=== PATIENT | female | born 1955 | race Caucasian/White ===

== ENCOUNTER 2017-11-22 10:47 | Inpatient (IN) ==
--- NOTE | 2017-11-22 11:02 | Emergency Department Note ---
Disposition Clinical Impression: Ankle dislocation Qualifiers: Encounter type: initial encounter Laterality: right Qualified Code(s): S93.04XA - Dislocation of right ankle joint, initial encounter Diastolic CHF Qualifiers: Heart failure chronicity: chronic Qualified Code(s): I50.32 - Chronic diastolic (congestive) heart failure COPD (chronic obstructive pulmonary disease) Qualifiers: COPD type: unspecified COPD Qualified Code(s): J44.9 - Chronic obstructive pulmonary disease, unspecified Disposition: Admitted As Inpatient Condition: Undetermined Referrals: NONE,PCP [Non-Partnered Physician] - Forms: ED Satisfaction Letter Time of Disposition: 12:18 Extremity Problem HPI - General Chief complaint: ED Extremity Problem,Nontraumatic Stated complaint: admission for surgery Time Seen by Provider: 11/22/17 10:53 Source: patient Mode of arrival: wheelchair Limitations: no limitations Nursing Notes Reviewed: Yes Vital Signs Reviewed: Yes - History of Present Illness HPI Narrative: 62-year-old female who was sent here from podiatry office for chronic dislocated right ankle. The patient has a history of COPD, CHF, and the digital marketing lead sent the patient over here for admission to the hospital. He is requesting basic laboratory studies and admission to the hospital. In addition the patient was requested to have a CT of her right ankle. We will obtain labs and admit the patient to the hospital at this time. The patient is noted to have no complaints of new shortness of breath new chest pain or any other new complaints. The patient does have a history of COPD and wears 3 L nasal cannula [id number]. She is resting comfortably without any new leg swelling or any other complaints at this time. Pain Scale: 10 - Related Data Home Medications Medication Instructions Recorded Confirmed Acarbose [Precose] 50 mg PO TID 06/20/17 11/22/17 Albuterol Neb [Proventil Neb] 1 vial IH TID 06/20/17 11/22/17 Albuterol Sulfate [Ventolin Hfa] 2 puff IH Q6H PRN 06/20/17 11/22/17 Aspirin [Lo-Dose Aspirin EC] 81 mg PO DAILY 06/20/17 11/22/17 Atorvastatin [Lipitor] 40 mg PO HS 06/20/17 11/22/17 BuPROPion XL (24 HR) [Wellbutrin 300 mg PO QAM 06/20/17 11/22/17 Xl] Duloxetine HCl [Cymbalta] 60 mg PO QAM 06/20/17 11/22/17 Ergocalciferol (VITAMIN D2) 50,000 unit PO QWEEK 06/20/17 11/22/17 [Vitamin D2] Fluticasone Propionate Nasal 1 spr NS DAILY 06/20/17 11/22/17 [Flonase] Gabapentin [Neurontin] 600 mg PO TID 06/20/17 11/22/17 Lisinopril [Zestril] 10 mg PO DAILY 06/20/17 11/22/17 Magnesium Oxide [Magnesium] 400 mg PO DAILY 06/20/17 11/22/17 Omeprazole [PriLOSEC] 20 mg PO DAILY 06/20/17 11/22/17 Vit #76/Iron,Carb/FA [Pnv 1 tab PO DAILY 06/20/17 11/22/17 29-1 Tablet] Tiotropium [Spiriva] 18 mcg IH DAILY 06/20/17 11/22/17 Trazodone HCl 100 mg PO HS 06/20/17 11/22/17 hydrOXYzine pamoate [HydrOXYzine 25 mg PO TID PRN 06/20/17 11/22/17 Pamoate] metFORMIN [Glucophage] 500 mg PO BID 06/20/17 11/22/17 Acetaminophen [Extra Strength 1,000 mg PO Q6H PRN 11/22/17 11/22/17 Non-Aspirin] Albuterol Sulfate [Ventolin Hfa] 2 puff IH Q6H PRN 11/22/17 11/22/17 Furosemide [Lasix] 60 mg PO QAM 11/22/17 11/22/17 Insulin DETEMIR [Levemir] 26 unit SQ 11/22/17 11/22/17 Insulin DETEMIR [Levemir] 28 unit SQ QAM 11/22/17 11/22/17 Insulin Regular, Human [Novolin R] 0 - 12 unit SQ TID PRN 11/22/17 11/22/17 Potassium Chloride [K-Tab ER] 40 meq PO QAM 11/22/17 11/22/17 Previous Rx's Medication Instructions Recorded Cyanocobalamin (B-12) [Vitamin B12] 1,000 mcg PO DAILY #30 tablet 06/22/17 Allergies Allergy/AdvReac Type Severity Reaction Status Date / Time No Known Drug Allergies Allergy none Verified 06/21/17 19:26 All systems ED: reviewed and negative except as stated. Constitutional: Denies: fever, chills, weakness ENT ED: Denies: congestion Cardiovascular: Denies: chest pain Respiratory: Denies: cough, dyspnea Gastrointestinal: Denies: abdominal pain Musculoskeletal: Denies: back pain Integumentary: Denies: rash Neurological: Denies: headache Past Medical History - Past Medical History Attestation: Yes The following information was validated with the patient. Source: patient, old records reviewed Medical history: Reports: CHF, COPD, diabetes, GERD, hypertension Surgical history: Reports: cholecystectomy, hip replacement Psychiatric history: Reports: anxiety, depression - Social History Smoking Status: Former smoker Smokeless Tobacco Status: No Alcohol use: Reports: occasionally Drug use: Reports: none Physical Exam - General Limitations: no limitations General appearance: alert, in no apparent distress - Head Head exam: atraumatic, normocephalic, normal inspection - Eye Eye exam: Present: normal appearance, PERRL, EOMI - ENT ENT exam: normal exam, normal oropharynx, mucous membranes moist - Neck Neck exam: Present: normal inspection, full ROM, trachea midline - Chest Chest inspection: Present: normal inspection, symmetric chest wall rise - Respiratory Respiratory exam: Present: normal lung sounds bilaterally - Cardiovascular Cardiovascular exam: Present: regular rate, normal rhythm, normal heart sounds - Abdominal Exam Abdominal exam: Present: soft, Non-Tender. Absent: tenderness, distention, guarding, rebound, rigidity - Extremities Exam Extremities exam: Present: other (Patient's bilateral upper and left lower extremities are without any abnormalities other than some chronic venous stasis in the left lower surety. Right lower extremity is noted to be in a surgical boot. No complaints at this time.) - Neurological Exam Neurological exam: Present: alert, oriented X3 - Skin Skin exam: Present: warm, dry, intact, normal color Course Vital Signs Temperature 97.5 F L 11/22/17 10:49 Pulse Rate 79 11/22/17 10:49 Respiratory Rate 22 11/22/17 10:49 Blood Pressure 115/60 11/22/17 10:49 O2 Sat by Pulse Oximetry 97 11/22/17 10:49 Temperature 97.5 F L 11/22/17 11:03 Pulse Rate 79 11/22/17 11:03 Respiratory Rate 22 11/22/17 11:03 Blood Pressure 115/60 11/22/17 11:03 O2 Sat by Pulse Oximetry 97 11/22/17 11:03 Oxygen Delivery Oxygen Delivery Nasal Cannula Extremity Problem, Nontraumati - MDM Narrative Medical decision making narrative: Patient's workup in the emergency department demonstrates no acute process with the exception of hyperkalemia. The patient will be admitted to the hospital this time to be seen by podiatry for the ankle surgery. Accepted by Dr. Muhammad - Lab Data Lab results reviewed: Yes I reviewed the patient's lab results. Result diagrams: 11/22/17 10:53 11/22/17 10:53 Lab Results 11/22/17 11/22/17 Range/Units 10:53 10:53 WBC 5.1 (4.3-11.1) K/mcL RBC 2.91 L (3.82-4.97) M/mcL Hgb 10.0 L (11.5-15.4) g/dL Hct 31.6 L (35.3-44.9) % MCV 108.6 H (83.0-100.0) fL MCH 34.4 H (28.0-33.3) pg MCHC 31.6 (31.6-35.5) g/dL RDW 12.9 (11.5-14.5) % Plt Count 198 (140-400) K/mcL MPV 10.1 (9.4-12.4) fL Immature Gran % 0.4 (0-4) % Seg Neutrophils % 67.8 % Lymphocytes % 21.1 % Monocytes % 8.0 % Eosinophils % 2.3 % Basophils % 0.4 % Neutrophils # 3.5 (1.6-8.9) K/mcL Lymphocytes # 1.1 (0.6-4.6) K/mcL Monocytes # 0.4 (0.0-1.3) K/mcL Eosinophils # 0.1 (0.0-0.6) K/mcL Basophils # 0.0 (0.0-0.2) K/mcL Sodium 141 (136-145) mEq/L Potassium 5.5 H (3.5-5.1) mEq/L Chloride 103 (98-107) mEq/L Carbon Dioxide 29 (23-29) mEq/L BUN 21 (8-23) mg/dL Creatinine 1.01 (0.60-1.20) mg/dL Est GFR ( Amer) > 60 (> 60) Est GFR (Non-Af Amer) 56 L (> 60) BUN/Creatinine Ratio 21 (6-26) Glucose 126 H (70-105) mg/dL Calculated Osmolality 297 (280-300) Calcium 10.1 (8.6-10.3) mg/dL Troponin I < 0.03 (< 0.04) ng/mL - Radiology Data Radiology results reviewed: Yes I reviewed the patient's radiology results. - EKG Data EKG attestation: Yes I reviewed and interpreted this EKG. EKG results narrative: Heart rate 85 beats for minute. Normal sinus rhythm. No ST elevation or ST depression noted. No acute changes noted.
--- NOTE | 2017-11-22 11:16 | Emergency Department Note ---
Disposition Clinical Impression: Ankle dislocation Qualifiers: Encounter type: initial encounter Laterality: right Qualified Code(s): S93.04XA - Dislocation of right ankle joint, initial encounter Disposition: Admitted As Inpatient Referrals: NONE,PCP [Primary Care Provider] - Forms: ED Satisfaction Letter General Adult HPI - General Chief complaint: ED Extremity Problem,Nontraumatic Stated complaint: admission for surgery Time Seen by Provider: 11/22/17 10:53 Source: patient Mode of arrival: wheelchair Limitations: no limitations - History of Present Illness Pain Scale: 10 - Related Data Home Medications Medication Instructions Recorded Confirmed Acarbose [Precose] 50 mg PO TID 06/20/17 06/20/17 Albuterol Neb [Proventil Neb] 1 vial IH TID 06/20/17 06/20/17 Albuterol Sulfate [Ventolin Hfa] 2 puff IH Q6H PRN 06/20/17 06/20/17 Aspirin [Lo-Dose Aspirin EC] 81 mg PO DAILY 06/20/17 06/20/17 Atenolol [Tenormin] 50 mg PO DAILY 06/20/17 06/20/17 Atorvastatin [Lipitor] 40 mg PO HS 06/20/17 06/20/17 Benzonatate [Tessalon] 100 mg PO TID PRN 06/20/17 06/20/17 BuPROPion XL (24 HR) [Wellbutrin 300 mg PO QAM 06/20/17 06/20/17 Xl] Duloxetine HCl [Cymbalta] 60 mg PO QAM 06/20/17 06/20/17 Ergocalciferol (VITAMIN D2) 50,000 unit PO QWEEK 06/20/17 06/20/17 [Vitamin D2] Fluticasone Propionate Nasal 1 spr NS DAILY 06/20/17 06/20/17 [Flonase] Fluticasone/Vilanterol [Breo 1 puff IH DAILY 06/20/17 06/20/17 Ellipta 100-25 Mcg INH] Gabapentin [Neurontin] 600 mg PO TID 06/20/17 06/20/17 Insulin DETEMIR [Levemir] 28 unit SQ BID 06/20/17 06/20/17 Lisinopril [Zestril] 10 mg PO DAILY 06/20/17 06/20/17 Magnesium Oxide [Magnesium] 400 mg PO DAILY 06/20/17 06/20/17 Omeprazole [PriLOSEC] 20 mg PO DAILY 06/20/17 06/20/17 Vit #76/Iron,Carb/FA [Pnv 1 tab PO DAILY 06/20/17 06/20/17 29-1 Tablet] Tiotropium [Spiriva] 18 mcg IH DAILY 06/20/17 06/20/17 Trazodone HCl 100 mg PO HS 06/20/17 06/20/17 hydrOXYzine pamoate [HydrOXYzine 25 mg PO TID PRN 06/20/17 06/20/17 Pamoate] metFORMIN [Glucophage] 500 mg PO BID 06/20/17 06/20/17 Previous Rx's Medication Instructions Recorded Cyanocobalamin (B-12) [Vitamin B12] 1,000 mcg PO DAILY #30 tablet 06/22/17 Allergies Allergy/AdvReac Type Severity Reaction Status Date / Time No Known Drug Allergies Allergy none Verified 06/21/17 19:26 Constitutional: Denies: fever, chills, weakness ENT ED: Denies: congestion Cardiovascular: Denies: chest pain Respiratory: Denies: cough, dyspnea Gastrointestinal: Denies: abdominal pain Musculoskeletal: Denies: back pain Integumentary: Denies: rash Neurological: Denies: headache Past Medical History - Past Medical History Medical history: Reports: CHF, COPD, diabetes, GERD, hypertension Surgical history: Reports: cholecystectomy, hip replacement Psychiatric history: Reports: anxiety, depression - Social History Smoking Status: Former smoker Smokeless Tobacco Status: No Alcohol use: Reports: occasionally Drug use: Reports: none Physical Exam - General Limitations: no limitations General appearance: alert, in no apparent distress Course - Reevaluation(s) Reevaluation #1: Attestation note I did independently examine and verified the physical examination findings evaluation workup and disposition of this patient. We had independent face-to- face examination and discussion. The patient was seen with the emergency medicine resident Dr. Emile Pedro I examined this patient and my medical decision-making was reviewed with the Resident Physician/[employer] DRIVER/PA. I agree with the documented findings, disposition and treatment plan as described except to the extent set forth below. Briefly: 8-year-old female sent by her tester operator helper Dr. Finnegan for workup and admission. Patient has a chronically dislocated right ankle of which she is going to operative repair he wanted screening labs and a CT which are being ordered patient's pain is under control she is getting a meal tray. Admission disposition pending Time: 11:14 Vital Signs Temperature 97.5 F L 11/22/17 10:49 Pulse Rate 79 11/22/17 10:49 Respiratory Rate 22 11/22/17 10:49 Blood Pressure 115/60 11/22/17 10:49 O2 Sat by Pulse Oximetry 97 11/22/17 10:49 Temperature 97.5 F L 11/22/17 11:03 Pulse Rate 79 11/22/17 11:03 Respiratory Rate 22 11/22/17 11:03 Blood Pressure 115/60 11/22/17 11:03 O2 Sat by Pulse Oximetry 97 11/22/17 11:03 Oxygen Delivery Oxygen Delivery Nasal Cannula
[2017-11-22 11:25] LABS: Basophils % 0.4 %; Eosinophils # 0.1 K/mcL (0.0-0.6); Eosinophils % 2.3 %; Hematocrit 31.6 % (35.3-44.9); Immature Granulocytes % 0.4 % (0-4); Lymphocytes # 1.1 K/mcL (0.6-4.6); Lymphocytes % 21.1 %; Mean Corpuscular HGB Conc 31.6 g/dL (31.6-35.5); Mean Corpuscular Hemoglobin 34.4 pg (28.0-33.3); Mean Corpuscular Volume 108.6 fL (83.0-100.0); Mean Platelet Volume 10.1 fL (9.4-12.4); Monocytes # 0.4 K/mcL (0.0-1.3); Neutrophils # 3.5 K/mcL (1.6-8.9); Platelet Count 198 K/mcL (140-400); Red Blood Count 2.91 M/mcL (3.82-4.97); Red Cell Distribution Width 12.9 % (11.5-14.5); Segmented Neutrophils % 67.8 %
[2017-11-22 11:48] LABS: Troponin I < 0.03 ng/mL (< 0.04)
[2017-11-22 12:08] LABS: BUN/Creatinine Ratio 21 (6-26); Blood Urea Nitrogen 21 mg/dL (8-23); Calcium 10.1 mg/dL (8.6-10.3); Carbon Dioxide 29 mEq/L (23-29); Chloride 103 mEq/L (98-107); Glucose 126 mg/dL (70-105); Osmolality,Calculated 297 (280-300); Potassium 5.5 mEq/L (3.5-5.1); Sodium 141 mEq/L (136-145); eGFR For African Americans > 60 (> 60); eGFR For Non-African Americans 56 (> 60)
[2017-11-22 12:25] LABS: Estimated Average Glucose 114 mg/dl; Hemoglobin A1C 5.6 %
[2017-11-22] MEDS ORDERED: Acetaminophen 325 MG TABLET PO PRN (13:33)
[2017-11-22] MEDS ORDERED: Naloxone 0.4 MG/ML INJ IVP PRN (13:33)
[2017-11-22] MEDS ORDERED: *HR* HYDROcodone/Acet 5/325 mg TABLET PO PRN (13:33)
[2017-11-22] MEDS ORDERED: hydrOXYzine pamoate 25 MG CAPSULE PO PRN (13:41)
[2017-11-22] MEDS ORDERED: Ipratropium/Albuterol Neb 3 ML IH PRN (13:48)
[2017-11-22] MEDS ORDERED: D5% in Water 1,000 ML IVC PRN (13:53)
[2017-11-22] MEDS ORDERED: Dextrose Gel 15 GM/37.5 ML TUBE PO PRN ×2 (13:53)
[2017-11-22] MEDS ORDERED: *HR* Dextrose 50 % in Water (Syg) 50 ML SYRINGE IVP PRN (13:53)
[2017-11-22] MEDS ORDERED: GuaiFENesin/Dextromethorphan TABLET PO PRN (13:59)
[2017-11-22] MEDS ORDERED: Menthol 9.1 MG LOZENGE PO PRN (14:00)
--- NOTE | 2017-11-22 14:03 | Internal Med History&Physical ---
<MauroarEmile terry - Last Filed: 11/22/17 15:07> Date of Encounter: 11/22/17 Time of Encounter: 13:00 Internal Medicine - H&P: HPI Chief complaint: Pre-Op Clearance Admitted From: Emergency Dept Plans for Post Hospital Care: Home History of present illness: Ms. Walsh is a 62 year old female w/PMH of CHF, COPD, diabetes controlled by oral medications and insulin, GERD, HTN, and HLD presents from the ED for Pre- Op Clearance for fx/dislocation of the right ankle. Pt. reports she fell in late September at home when she tripped over her O2 tubing. She states she was not able to get to see provider because squad cancelled her call. Reports she has been at [facility] since and has been unable to ambulate. Reports she uses home O2 @6-7L daily. Pt. denies SOB d/t COPD/CHF currently and is at her O2 baseline. Reports dry cough and urinary urgency w/inability to urinate. Hx of UTIs. Pt. denies recent illness, fever, chills, nausea, vomiting, changes in vision, headache, chest pain, unusual bleeding, abdominal pain, diarrhea, constipation, dizziness, lightheadedness, numbness, tingling, pre-syncope, or syncope. Past Med Surg Social Fam HX - Past Medical History Source: patient, old records reviewed Medical history: CHF, COPD, diabetes, GERD, hyperlipidemia, hypertension Psychiatric history: anxiety, depression - Past Surgical History Surgical History: cholecystectomy, hip replacement Additional surgical history: 2 right and 1 left hip replcaement - Social History Smoking Status: Former smoker Packs per day: 1.5-2 PPD, Reports quitting 03/06/17 Smokeless Tobacco Status: No Alcohol use: occasionally Drug use: none Current living situation: ECF Activity Level: Uses cane/walker (Prior to ankle fx), Wheelchair bound Recent Out of Country Travel Within the Last 8 Weeks: No Exposure or Possible Exposure to Illness During Travel: No - Family History Father Race: Family Member Ethnicity: Non- Living Status: Age at : 59 Cause of : Lung cancer Hx Family Cancer: Yes (Lung) Mother Race: Family Member Ethnicity: Non- Living Status: Still Living Hx Family Genitourinary Disorders: Yes (Kidney removed) Sister Race: Family Member Ethnicity: Non- Living Status: Still Living Hx Family Medical Disorders: No Grandmother Race: Family Member Ethnicity: Non- Living Status: Cause of : DM Complications Hx Family Endocrine Disorder: Yes (DM) Internal Medicine - H&P: Meds Acarbose [Precose] 50 mg PO TID 06/20/17 [History] Albuterol Neb [Proventil Neb] 1 vial IH TID 06/20/17 [History] Albuterol Sulfate [Ventolin Hfa] 2 puff IH Q6H PRN 06/20/17 [History] Aspirin [Lo-Dose Aspirin EC] 81 mg PO DAILY 06/20/17 [History] Atorvastatin [Lipitor] 40 mg PO HS 06/20/17 [History] BuPROPion XL (24 HR) [Wellbutrin Xl] 300 mg PO QAM 06/20/17 [History] Duloxetine HCl [Cymbalta] 60 mg PO QAM 06/20/17 [History] Ergocalciferol (VITAMIN D2) [Vitamin D2] 50,000 unit PO QWEEK 06/20/17 [History] Fluticasone Propionate Nasal [Flonase] 1 spr NS DAILY 06/20/17 [History] Gabapentin [Neurontin] 600 mg PO TID 06/20/17 [History] Lisinopril [Zestril] 10 mg PO DAILY 06/20/17 [History] Magnesium Oxide [Magnesium] 400 mg PO DAILY 06/20/17 [History] Omeprazole [PriLOSEC] 20 mg PO DAILY 06/20/17 [History] Vit #76/Iron,Carb/FA [Pnv 29-1 Tablet] 1 tab PO DAILY 06/20/17 [History ] Tiotropium [Spiriva] 18 mcg IH DAILY 06/20/17 [History] Trazodone HCl 100 mg PO HS 06/20/17 [History] hydrOXYzine pamoate [HydrOXYzine Pamoate] 25 mg PO TID PRN 06/20/17 [History] metFORMIN [Glucophage] 500 mg PO BID 06/20/17 [History] Cyanocobalamin (B-12) [Vitamin B12] 1,000 mcg PO DAILY #30 tablet 06/22/17 [Rx] Acetaminophen [Extra Strength Non-Aspirin] 1,000 mg PO Q6H PRN 11/22/17 [History ] Albuterol Sulfate [Ventolin Hfa] 2 puff IH Q6H PRN 11/22/17 [History] Furosemide [Lasix] 60 mg PO QAM 11/22/17 [History] Insulin DETEMIR [Levemir] 26 unit SQ HS 11/22/17 [History] Insulin DETEMIR [Levemir] 28 unit SQ QAM 11/22/17 [History] Insulin Regular, Human [Novolin R] 0 - 12 unit SQ TID PRN 11/22/17 [History] Potassium Chloride [K-Tab ER] 40 meq PO QAM 11/22/17 [History] 3 Allergy/AdvReac Type Severity Reaction Status Date / Time No Known Drug Allergies Allergy none Verified 06/21/17 19:26 All Systems PM: A 10-system review of systems was performed and is negative for pertinent findings except as documented above in the HPI. - Constitutional Constitutional: as per HPI, falls, no chills, no fever(s), no night sweats - EENT Eyes: no change in vision, no discharge, no pain, no photophobia Ears: no ear discharge, no ear pain, no tinnitus Nose, mouth and throat: no dysphagia, no nasal discharge, no neck pain, no sore throat - Breasts Breasts: as per HPI - Cardiovascular Cardiovascular ROS IM: as per HPI, dyspnea (Chronic d/t COPD), dyspnea on exertion (Chronic d/t COPD), no chest pain, no diaphoresis, no lightheadedness, no palpitations, no syncope - Respiratory Respiratory: as per HPI, cough, dyspnea, dyspnea on exertion, no wheezing, no excessive phlegm production - Gastrointestinal Gastrointestinal: no abdominal pain, no diarrhea, no hematemesis, no hematochezia, no melena, no nausea, no vomiting - Genitourinary Genitourinary: no change in urinary stream, no dysuria, no flank pain, no hematuria Menstruation: as per HPI - Musculoskeletal Musculoskeletal ROS IM: no numbness, no tingling - Integumentary Integumentary IM: no rash, no unusual bruising - Neurological Neurological ROS: as per HPI, weakness, no confusion, no convulsions, no focal weakness, no numbness, no tingling, no tremor(s) - Psychiatric Psychiatric: as per HPI, anxiety, depression - Endocrine Endocrine IM: as per HPI - Hematologic/Lymphatic Hematologic/Lymphatic: no easy bruising - Allergic/Immunologic Allergic/Immunologic: as per HPI - Constitutional Vitals: Temp Pulse Resp BP Pulse Ox 97.5 F L 88 18 122/59 100 11/22/17 11:03 11/22/17 13:25 11/22/17 13:25 11/22/17 13:25 11/22/17 13:25 General appearance: Present: A&O X 0, cooperative, A&O X 3, morbidly obese, pleasant, no acute distress, answers questions appropriately - Head Head exam: Present: atraumatic, normocephalic - Eye Eye exam: Present: PERRL, conjuntiva pink, sclera anicteric Pupils: Present: PERRL - ENT ENT exam: Present: normal exam - Neck Neck exam general surgery: Present: normal inspection, supple, trachea midline. Absent: lymphadenopathy - Respiratory Respiratory exam: Present: CTAB. Absent: accessory muscle use, rales, rhonchi, wheezes - Cardiovascular Cardiovascular exam: Present: RRR, +S1, +S2. Absent: diastolic murmur, gallop, rubs, systolic murmur - GI/Abdominal GI/Abdominal exam: Present: normal bowel sounds, soft, no peritoneal signs. Absent: distended, tenderness - Rectal Rectal exam: Present: deferred - Additional comments: exam deferred. - Extremities Exam Extremities exam: Present: warm, radial pulses palpable and symmetrical. Absent : calf tenderness, cyanotic, pedal edema - Back Exam Back exam: Present: normal inspection - Neurological Exam Neurological exam: Present: CN II-XII intact, oriented X3, no focal deficits. Absent: pronater drift, facial droop, speech deficit - Psychiatric Psychiatric exam: Present: normal affect, normal mood - Skin Skin exam: Present: dry, intact Internal Med - H&P Results - Labs CBC & Chem 7: 11/22/17 10:53 11/22/17 10:53 - EKG Data EKG shows normal: sinus rhythm Rate: normal - EKG Data Prior EKG available for review: no - Diagnostic Studies Other Images Additional comments: Impressions Ankle CT 11/22/17 11:05 IMPRESSION: Subacute trimalleolar fracture/dislocation of the right ankle with areas of callus formation but no bony bridging or significant healing. There is severe posterior dislocation of the talus with respect to the tibial plafond with displaced fractures of the medial malleolus, lateral malleolus and posterior malleolus as described above. Large associated joint effusion. D/ / 11/22/2017 12:37:29 Blade Jacobs MD / Tessie Torres Interpreting Provider: Blade Jacobs MD Chest x-ray Additional comments: Impressions Chest X-Ray 11/22/17 11:41 IMPRESSION: No acute process. D/ / Tylor Whalen MD / Tylor Whalen MD Interpreting Provider: Tylor Whalen MD - Assessment and plan (1) Pre-operative clearance Current Visit: Yes Status: Acute Assessment and plan: Pre-Op Clearance for a.m. surgery on right ankle for fx/dislocation suffered in late September. Pt. has hx of cardiac risk factors, including HTN, HLD, CHF, DM, and morbid obesity. Pt. was also recent tobacco user smoking 1.5-2 PPD and reports quitting 03/06/17. EKG today shows SR and normal ECG. Echocardiogram ordered. Cardiology consult ordered and discussed w/Randy Payne who will see pt. post-Echo for Cardiology sign-off. Heparin SQ ordered today and will be stopped at midnight. NPO @ midnight for surgery prep. Pt. is low risk for further morbidity based on current risk factors (stable CHF/COPD) and Echocardiogram in 2014 which showed LVEF 65%, moderate left ventricular diastolic dysfunction, normal right ventricular structure and function, mild to moderately dilated left atrium, no significant valvular dysfunction, and mild pulmonary hypertension. Pt. discussed w/Dr. Armijo who agrees w/plan of care. Observation. (2) Generalized weakness Current Visit: Yes Status: Acute Assessment and plan: Acute and generalized weakness since falling in late September and suffering fx/ dislocation of right ankle. Pt. states she was able to use cane/walker prior to fx but now must use wheelchair. Falls/safety precautions, up with assist, bed rest w/bedside commode w/assist only. PT/OT consults for post-surgery recommendations for rehabilitation needs post-discharge. (3) Hyperkalemia Current Visit: Yes Status: Acute Assessment and plan: Acute hyperkalemia w/potassium of 5.5 on admission. Pt. to receive 1L 0.45 NaCl @75 mL/HR. Monitor potassium at 04:00. (4) Anemia Current Visit: Yes Status: Chronic Assessment and plan: Acute on chronic anemia w/Hgb of 10.0 and Hct of 31.6 on admission which is higher than pts. recent baseline in 2018. Denies unusual bleeding. Monitor H/H in f/u labs. Qualifiers: Anemia type: unspecified type Qualified Code(s): D64.9 - Anemia, unspecified (5) HTN (hypertension) Current Visit: Yes Status: Chronic Assessment and plan: Hx of chronic HTN. Monitor pt. and VS. Continue pts. Lisinopril. Qualifiers: Hypertension type: essential hypertension Qualified Code(s): I10 - Essential (primary) hypertension (6) HLD (hyperlipidemia) Current Visit: Yes Status: Chronic Assessment and plan: Hx of chronic HLD. Lipid panel in a.m. labs. Continue pts. Lipitor. Qualifiers: Hyperlipidemia type: pure hypercholesterolemia Qualified Code(s): E78.00 - Pure hypercholesterolemia, unspecified; E78.0 - Pure hypercholesterolemia (7) GERD (gastroesophageal reflux disease) Current Visit: Yes Status: Chronic Assessment and plan: Hx of chronic GERD. IVP Zofran 4 mg Q6HR PRN for N/V. Continue pts. PO Prilosec. Qualifiers: Esophagitis presence: esophagitis presence not specified Qualified Code(s) : K21.9 - Gastro-esophageal reflux disease without esophagitis (8) COPD (chronic obstructive pulmonary disease) Current Visit: Yes Status: Chronic Assessment and plan: Hx of chronic COPD. Stable. Supplemental O2 w/titration and SpO2 monitoring. DuoNebs Q6HR PRN. Continue pts. inhalers. Qualifiers: COPD type: unspecified COPD Qualified Code(s): J44.9 - Chronic obstructive pulmonary disease, unspecified (9) Diastolic CHF Current Visit: Yes Status: Chronic Assessment and plan: Hx of chronic diastolic CHF. Stable. Will use IV fluids judiciously. Echocardiogram. Continuous cardiac telemetry. Qualifiers: Heart failure chronicity: chronic Qualified Code(s): I50.32 - Chronic diastolic (congestive) heart failure (10) Diabetes mellitus Current Visit: Yes Status: Chronic Assessment and plan: Hx of chronic diabetes controlled by oral medications and insulin. Continue pts. AM and HS insulin. Hold oral medications and administer low-dose correction insulin sliding scale w/hypoglycemic protocol. BG checks ACHS now, then Q6HR after midnight for surgery preparation. Qualifiers: Diabetes mellitus type: type 2 Diabetes mellitus [employer] insulin use: with [facility] use Diabetes mellitus complication status: with neurologic complications Diabetes mellitus complication detail: with polyneuropathy Qualified Code(s): E11.42 - Type 2 diabetes mellitus with diabetic polyneuropathy; Z79.4 - shelter (current) use of insulin; Z79.4 - [employer] ( current) use of insulin; Z79.4 - shelter (current) use of insulin; Z79.4 - shelter (current) use of insulin (11) DVT prophylaxis Current Visit: Yes Status: Acute Assessment and plan: Heparin 5,000 units SQ Q8 for DVT prophylaxis. Stop heparin after midnight in preparation for surgery. Monitor pt. for signs of bleeding. - Time Spent With Patient Total time spent is greater than 50% in coordination of care (as documented) at patient's floor/unit and/or counseling patient: Greater than 35 minutes <Margarito Muhammad - Last Filed: 11/22/17 18:00> Date of Encounter: 11/22/17 Internal Medicine - H&P: HPI History of present illness: Ms. Walsh is a 62 year old female All Systems PM: A 10-system review of systems was performed and is negative for pertinent findings except as documented above in the HPI. - Constitutional Vitals: Temp Pulse Resp BP Pulse Ox 97.7 F 88 16 136/60 95 11/22/17 15:36 11/22/17 15:36 11/22/17 16:14 11/22/17 15:36 11/22/17 16:14 Internal Med - H&P Results - Labs CBC & Chem 7: 11/22/17 10:53 11/22/17 10:53 - Attending Attestation I have personally performed a face to face evaluation on this patient. I have reviewed and agree with the care plan provided by VEE Lebron. History and Exam by me shows: Ms. Walsh is a 62 year old female w/PMH of CHF, COPD, diabetes controlled by oral medications and insulin, GERD, HTN, and HLD presents from the ED for Pre- Op Clearance for fx/dislocation of the right ankle. Pt was followed by Director Of Knowledge Management for this recent Rt ankle fx, who scheduled her for surgery in AM. He asked us to admit the pt into our service and clear her for surgery. Pt denied any CP /SOB Gen: A, A, O x 3 Chest: CTA Heart: S1S2+ RRR Ext: Rt ankle boot + a/p 1. Acute Rt ankle fx Reviewed EKG - NSR, NO ST T changes E cho ordered Low to intermediate risk for surgeries like Ankle repair 2. Acute hyperkalemia mostly due to dehydration + K + intake gentle IVF d/c K+ supplements - Assessment and plan (1) Diabetes mellitus Current Visit: Yes Status: Chronic Qualifiers: Diabetes mellitus type: type 2 Diabetes mellitus [facility] insulin use: with [employer] use Diabetes mellitus complication status: with neurologic complications Diabetes mellitus complication detail: with polyneuropathy Qualified Code(s): E11.42 - Type 2 diabetes mellitus with diabetic polyneuropathy; Z79.4 - shelter (current) use of insulin; Z79.4 - shelter ( current) use of insulin; Z79.4 - [employer] (current) use of insulin; Z79.4 - shelter (current) use of insulin (2) Hypertension Current Visit: Yes Status: Chronic Qualifiers: Hypertension type: essential hypertension Qualified Code(s): I10 - Essential (primary) hypertension (3) COPD (chronic obstructive pulmonary disease) Current Visit: Yes Status: Chronic Qualifiers: COPD type: unspecified COPD Qualified Code(s): J44.9 - Chronic obstructive pulmonary disease, unspecified (4) Diastolic CHF Current Visit: Yes Status: Chronic Qualifiers: Heart failure chronicity: chronic Qualified Code(s): I50.32 - Chronic diastolic (congestive) heart failure (5) HLD (hyperlipidemia) Current Visit: Yes Status: Chronic Qualifiers: Hyperlipidemia type: pure hypercholesterolemia Qualified Code(s): E78.00 - Pure hypercholesterolemia, unspecified; E78.0 - Pure hypercholesterolemia (6) Pre-operative cardiovascular examination Current Visit: Yes Status: Acute - Time Spent With Patient Total time spent is greater than 50% in coordination of care (as documented) at patient's floor/unit and/or counseling patient:
[2017-11-22] MEDS: Gabapentin 300 MG CAPSULE PO SCH ×2 (14:19→21:53)
[2017-11-22] MEDS ORDERED: Ondansetron 4 MG/2 ML VIAL IVP PRN (14:42)
[2017-11-22] MEDS: *HR* Heparin 5,000 UNIT/ML VIAL SQ SCH ×2 (14:42→21:53)
[2017-11-22] MEDS: *HR* OxyCODONE Immed Rel 5 MG TABLET PO PRN ×2 (14:42→20:01)
--- NOTE | 2017-11-22 15:27 | Cardiology Consult Note ---
<Oseas Cosme - Last Filed: 11/22/17 15:23> Date of Encounter: 11/22/17 Time of Encounter: 15:23 Assessment and Plan (1) Pre-operative cardiovascular examination Current Visit: Yes Status: Acute - Pt is a 62 year old female with no prior ischemic disease - Risk factors of former smoker, HLD, DM2, obesity - Last cardiac eval in Mar 2015 [facility] after abnormal stress showing minimal atherosclerosis, repeat echo pending - EKG review showing NSR with no ST changes. - No ischemic symptoms. Able to achieve ~4 METS however limited due to COPD/ back pain - Intermediate risk surgery and low risk patient. At this time benefits of surgery outweigh the risks - Recommend proceeding with surgery. The risks and benefits were explained to the patient and she voices understanding. (2) Diabetes mellitus Current Visit: Yes Status: Chronic insulin dependent. 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 Qualifiers: COPD type: unspecified COPD Qualified Code(s): J44.9 - Chronic obstructive pulmonary disease, unspecified (5) Diastolic CHF Current Visit: Yes Status: Chronic - Echo in 02/2015 shows EF 65% with moderate diastolic dysfunction. - Repeat echo ordered by primary team. Do not expect significant changes. Qualifiers: Heart failure chronicity: chronic Qualified Code(s): I50.32 - Chronic diastolic (congestive) heart failure (6) HLD (hyperlipidemia) Current Visit: Yes Status: Chronic Qualifiers: Hyperlipidemia type: pure hypercholesterolemia Qualified Code(s): E78.00 - Pure hypercholesterolemia, unspecified; E78.0 - Pure hypercholesterolemia Discussion w patient/family: The assessment and plan as outlined above was discussed with the patient and/or family members who expressed understanding and agreement. All questions were answered. Thank you for involving us in the care of your patient. Please call with any questions. History of Present Illness Consult date: 11/22/17 Requesting physician: Emile Lebron Consult reason: pre op risk stratification Chief complaint: Ankle pain History of present illness: Ms. Walsh is a 62 year old female with a PMHx of oxygen dependent COPD, HTN, insulin dependent DM, CHF, former smoker, Anxiety/depression presents from [employer] with chronic ankle pain/disloaction. She states she fell at the end of september after mechanical fall while getting tangled in her O2 lines. She denies any symptoms of chest pain, SOB outside of baseline, palpitations, nausea , vomiting. Most recent cardiac workup was in March 2015 with a [facility] showing minimal atherosclerosis, EF 65%. Patient denies any ischemic symptoms and is able to ambulate with her walker around the house prior to fall but is limited by SOB and chronic back pain. Past Med Surg Social Fam HX - Past Medical History Medical history: CHF, COPD, diabetes, GERD, hyperlipidemia, hypertension Psychiatric history: anxiety, depression - Past Surgical History Surgical History: cholecystectomy, hip replacement Additional surgical history: 2 right and 1 left hip replcaement - Social History Smoking Status: Former smoker Packs per day: 1.5-2 PPD, Reports quitting 03/06/17 Smokeless Tobacco Status: No Alcohol use: occasionally Drug use: none - Family History Father Race: Family Member Ethnicity: Non- Living Status: Age at : 59 Cause of : Lung cancer Hx Family Cancer: Yes (Lung) Mother Race: Family Member Ethnicity: Non- Living Status: Still Living Hx Family Genitourinary Disorders: Yes (Kidney removed) Sister Race: Family Member Ethnicity: Non- Living Status: Still Living Hx Family Medical Disorders: No Grandmother Race: Family Member Ethnicity: Non- Living Status: Cause of : DM Complications Hx Family Endocrine Disorder: Yes (DM) Medications and Allergies Acarbose [Precose] 50 mg PO TID 06/20/17 [History] Albuterol Neb [Proventil Neb] 1 vial IH TID 06/20/17 [History] Albuterol Sulfate [Ventolin Hfa] 2 puff IH Q6H PRN 06/20/17 [History] Aspirin [Lo-Dose Aspirin EC] 81 mg PO DAILY 06/20/17 [History] Atorvastatin [Lipitor] 40 mg PO HS 06/20/17 [History] BuPROPion XL (24 HR) [Wellbutrin Xl] 300 mg PO QAM 06/20/17 [History] Duloxetine HCl [Cymbalta] 60 mg PO QAM 06/20/17 [History] Ergocalciferol (VITAMIN D2) [Vitamin D2] 50,000 unit PO QWEEK 06/20/17 [History] Fluticasone Propionate Nasal [Flonase] 1 spr NS DAILY 06/20/17 [History] Gabapentin [Neurontin] 600 mg PO TID 06/20/17 [History] Lisinopril [Zestril] 10 mg PO DAILY 06/20/17 [History] Magnesium Oxide [Magnesium] 400 mg PO DAILY 06/20/17 [History] Omeprazole [PriLOSEC] 20 mg PO DAILY 06/20/17 [History] Vit #76/Iron,Carb/FA [Pnv 29-1 Tablet] 1 tab PO DAILY 06/20/17 [History ] Tiotropium [Spiriva] 18 mcg IH DAILY 06/20/17 [History] Trazodone HCl 100 mg PO HS 06/20/17 [History] hydrOXYzine pamoate [HydrOXYzine Pamoate] 25 mg PO TID PRN 06/20/17 [History] metFORMIN [Glucophage] 500 mg PO BID 06/20/17 [History] Cyanocobalamin (B-12) [Vitamin B12] 1,000 mcg PO DAILY #30 tablet 06/22/17 [Rx] Acetaminophen [Extra Strength Non-Aspirin] 1,000 mg PO Q6H PRN 11/22/17 [History ] Albuterol Sulfate [Ventolin Hfa] 2 puff IH Q6H PRN 11/22/17 [History] Furosemide [Lasix] 60 mg PO QAM 11/22/17 [History] Insulin DETEMIR [Levemir] 26 unit SQ HS 11/22/17 [History] Insulin DETEMIR [Levemir] 28 unit SQ QAM 11/22/17 [History] Insulin Regular, Human [Novolin R] 0 - 12 unit SQ TID PRN 11/22/17 [History] Potassium Chloride [K-Tab ER] 40 meq PO QAM 11/22/17 [History] 3 Allergy/AdvReac Type Severity Reaction Status Date / Time No Known Drug Allergies Allergy none Verified 06/21/17 19:26 All Systems Review: The remainder of the systems were reviewed and are negative - Constitutional Constitutional: no fever(s), no lethargy, no weakness - Cardiovascular Cardiovascular: dyspnea on exertion, no chest pain at rest, no chest pain with exertion, no dyspnea at rest, no leg edema, no lightheadedness, no orthopnea, no palpitations - Respiratory Respiratory: dyspnea (chronic), no cough, no wheezing - Gastrointestinal Gastrointestinal: nausea, no abdominal pain - Neurological Neurological: no dizziness, no syncope Physical Examination Vital Signs, Last 4 Hours Pulse Resp BP Pulse Ox 11/22/17 15:02 100 11/22/17 13:25 88 18 122/59 100 General: Conversant, No Apparent Distress HEENT: Atraumatic, Normocephaly, Mucus Membranes Moist Neck: No JVD, Normal carotid pulses Cardiac: Reg Rate and Rhythm, Normal S1 and S2, No Murmur Lungs: Normal Breath Sounds, No Wheeze, Rales, Rhonchi Neuro: Alert and responsive, No focal deficits noted Abdomen: Soft, Non-Tender Skin: No rashes noted on visualized skin Musculoskeletal: No Chest Wall Tenderness Extremities: No Clubbing, No Cyanosis, No Edema Results 11/22/17 10:53 11/22/17 10:53 Consult Discharge Plan - Plan Referrals: Dori Sutton DO [Primary Care Provider] - <Rd Castillo - Last Filed: 11/22/17 17:26> Date of Encounter: 11/22/17 - Attending Attestation I examined this patient and my medical decision-making was reviewed with the Resident Physician. I agree with the documented findings, disposition and treatment plan as described except to the extent set forth below. CC: Pain in right ankle Pt reports is having severe pain in right ankle following a mechanical fall caused by tripping over oxygen tubing. She denies chest pain, pressure or palpitations. She has chronic hypoxia and shortness of breath, is on chronic O2 supplement. ROS: REviewed PMH: reviewed PE:pt seen and examined, agree with findings as documented. IMP: 1. chronic dislocation of right ankle, anticipate surgical intervention 2. Mild CAD: pt underwent diagnostic [facility] 2014 for atypical chest pain, found to have minimal CAD at that time, pt denies chest pain, pressure, palpitations, increased shortness of breath from baseline. EKG is non acute, no changes. Pt is at low risk for planned procedure from cardiovascular perspective. No outstanding cardiac issues, will sign off, please recontact if can help. Assessment and Plan Discussion w patient/family: The assessment and plan as outlined above was discussed with the patient and/or family members who expressed understanding and agreement. All questions were answered. Thank you for involving us in the care of your patient. Please call with any questions. History of Present Illness History of present illness: Ms. Walsh is a 62 year old female All Systems Review: The remainder of the systems were reviewed and are negative Physical Examination Vital Signs, Last 4 Hours Temp Pulse Resp BP Pulse Ox 11/22/17 16:14 16 95 11/22/17 15:36 97.7 F 88 16 136/60 95 11/22/17 15:02 100 11/22/17 13:25 88 18 122/59 100 Results 11/22/17 10:53 11/22/17 10:53
[2017-11-22] MEDS: Albuterol 2.5 MG/3 ML NEBULIZER IH SCH ×2 (16:08→19:41)
[2017-11-22] MEDS: Insulin LISPRO 300 UNITS/3 ML VIAL SQ SCH (17:22)
--- NOTE | 2017-11-22 18:09 | Electrocardiograph Report ---
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
--- NOTE | 2017-11-22 20:09 | Podiatry Consult Note ---
Date of Encounter: 11/22/17 Time of Encounter: 18:20 Assessment and Plan (1) Trimalleolar fracture of ankle, closed Current visit: Yes Status: Acute subactue trimalleolar right ankle fracture/dislocation with callus formation over 1 month old I had a thorough review with the patient regarding her injury/condition, my findings, and her treatment options. We discussed the dislocation and malalignment of the ankle fracture and the severity of this injury. We discussed surgical intervention and we did discuss ORIF versus fusion. She wants to proceed with the ORIF of the right ankle trimalleolar ankle fracture and she did have the situation explained to her that she could require an ankle fusion and that she will definitely have arthritis of the ankle joint and I cannot predict how much her right ankle with bother her in the future. Nature of right ankle ORIF discussed at length and it was explained that she may have an external fixator in addition to internal hardware. Risks versus benefits potential complications and consequences of surgery discussed at length including but not limited to infection bleeding swelling numbness tingling nerve damage arthritis pneumonia blood clot kidney failure heart attack pulmonary embolism loss of leg need for removal of implants reaction to implants lack of procedure to produce desired outcome need for further surgery. No guarantees were made as to the outcome and it was also explained to her that if she had an external fixator on her leg it would require another surgery to remove it at a later date. We also discussed that it is likely that she could require a fusion of her ankle and/or hindfoot joints in the future. Discussed a typical course of recovery and she will be non-weight bearing for 3 months following the procedure. All of her questions were answered and informed consent was signed. NPO after midnight. Medicine and cardiac consult appreciated. Qualifiers: Encounter type: initial encounter Laterality: right Qualified Code(s): S82.851A - Displaced trimalleolar fracture of right lower leg, initial encounter for closed fracture History of Present Illness HPI: Ms. Walsh is a 62 year old diabetic female who over 1 month ago broke her right ankle. She says she did not have transportation to make it back to her doctors appointment so she missed her follow up appointment. She did eventually make it back to see Dr. Hidalgo. He referred her for surgical intervention when she was noted to have a dislocated right ankle with fractures showing callus formation and mal-alignment of the right ankle joint. She was sent to the ER for admission and surgery. She says she has CHF and COPD. She is on home oxygen. She says she is not a smoker. She says she does not know her A1c. She says her blood sugar is usually under good control. She lives in [place] [facility]. Past Med Surg Social Fam HX - Past Medical History Medical history: CHF, COPD, diabetes, GERD, hyperlipidemia, hypertension Psychiatric history: anxiety, depression - Past Surgical History Surgical History: cholecystectomy, hip replacement Additional surgical history: 2 right and 1 left hip replcaement - Social History Smoking Status: Former smoker Packs per day: 1.5-2 PPD, Reports quitting 03/06/17 Smokeless Tobacco Status: No Alcohol use: occasionally Drug use: none - Family History Father Race: Family Member Ethnicity: Non- Living Status: Age at : 59 Cause of : Lung cancer Hx Family Cancer: Yes (Lung) Mother Race: Family Member Ethnicity: Non- Living Status: Still Living Hx Family Genitourinary Disorders: Yes (Kidney removed) Sister Race: Family Member Ethnicity: Non- Living Status: Still Living Hx Family Medical Disorders: No Grandmother Race: Family Member Ethnicity: Non- Living Status: Cause of : DM Complications Hx Family Endocrine Disorder: Yes (DM) Medications and Allergies Acarbose [Precose] 50 mg PO TID 06/20/17 [History] Albuterol Neb [Proventil Neb] 1 vial IH TID 06/20/17 [History] Albuterol Sulfate [Ventolin Hfa] 2 puff IH Q6H PRN 06/20/17 [History] Aspirin [Lo-Dose Aspirin EC] 81 mg PO DAILY 06/20/17 [History] Atorvastatin [Lipitor] 40 mg PO HS 06/20/17 [History] BuPROPion XL (24 HR) [Wellbutrin Xl] 300 mg PO QAM 06/20/17 [History] Duloxetine HCl [Cymbalta] 60 mg PO QAM 06/20/17 [History] Ergocalciferol (VITAMIN D2) [Vitamin D2] 50,000 unit PO QWEEK 06/20/17 [History] Fluticasone Propionate Nasal [Flonase] 1 spr NS DAILY 06/20/17 [History] Gabapentin [Neurontin] 600 mg PO TID 06/20/17 [History] Lisinopril [Zestril] 10 mg PO DAILY 06/20/17 [History] Magnesium Oxide [Magnesium] 400 mg PO DAILY 06/20/17 [History] Omeprazole [PriLOSEC] 20 mg PO DAILY 06/20/17 [History] Vit #76/Iron,Carb/FA [Pnv 29-1 Tablet] 1 tab PO DAILY 06/20/17 [History ] Tiotropium [Spiriva] 18 mcg IH DAILY 06/20/17 [History] Trazodone HCl 100 mg PO HS 06/20/17 [History] hydrOXYzine pamoate [HydrOXYzine Pamoate] 25 mg PO TID PRN 06/20/17 [History] metFORMIN [Glucophage] 500 mg PO BID 06/20/17 [History] Cyanocobalamin (B-12) [Vitamin B12] 1,000 mcg PO DAILY #30 tablet 06/22/17 [Rx] Acetaminophen [Extra Strength Non-Aspirin] 1,000 mg PO Q6H PRN 11/22/17 [History ] Albuterol Sulfate [Ventolin Hfa] 2 puff IH Q6H PRN 11/22/17 [History] Furosemide [Lasix] 60 mg PO QAM 11/22/17 [History] Insulin DETEMIR [Levemir] 26 unit SQ HS 11/22/17 [History] Insulin DETEMIR [Levemir] 28 unit SQ QAM 11/22/17 [History] Insulin Regular, Human [Novolin R] 0 - 12 unit SQ TID PRN 11/22/17 [History] Potassium Chloride [K-Tab ER] 40 meq PO QAM 11/22/17 [History] 3 Allergy/AdvReac Type Severity Reaction Status Date / Time No Known Drug Allergies Allergy none Verified 06/21/17 19:26 All Systems Reviewed: The remainder of the systems were reviewed and are negative - Constitutional Constitutional: no fever(s) - Cardiovascular Cardiovascular: no chest pain, no dyspnea - Respiratory Respiratory: no cough - Musculoskeletal Musculoskeletal: joint swelling, limited range of motion, stiffness Physical Exam - Constitutional Vitals: Temp Pulse Resp BP Pulse Ox 98.1 F 85 16 115/72 95 11/22/17 19:48 11/22/17 19:48 11/22/17 19:48 11/22/17 19:48 11/22/17 19:48 Exam: well developed obese female in no acute distress Capillary refill time intact to all digits of the right foot. Right foot/ankle is warm to touch. mild edema. no necrosis or skin tinting. limited and painful attempted right ankle ROM. pain with palpation circumferentially around the right ankle joint. Sensation intact to touch right lower extremity. xray-dislocated trimalleolar ankle fracture with evidence of callus formation of mal-aligned fractures CT-some incomplete healing of trimalleolar fractures, tibiotalar joint dislocation Results - Labs Result Diagrams: 11/22/17 10:53 11/22/17 10:53 Labs: Abnormal lab results RBC 2.91 M/mcL (3.82-4.97) L 11/22/17 10:53 Hgb 10.0 g/dL (11.5-15.4) L 11/22/17 10:53 Hct 31.6 % (35.3-44.9) L 11/22/17 10:53 MCV 108.6 fL (83.0-100.0) H 11/22/17 10:53 MCH 34.4 pg (28.0-33.3) H 11/22/17 10:53 Potassium 5.5 mEq/L (3.5-5.1) H 11/22/17 10:53 Est GFR (Non-Af Amer) 56 (> 60) L 11/22/17 10:53 Glucose 126 mg/dL (70-105) H 11/22/17 10:53 POC Glucose 144 mg/dL (70-99) H 11/22/17 16:31 All other labs normal. Consult Discharge Plan - Plan Referrals: Dori Sutton DO [Primary Care Provider] -
[2017-11-22] MEDS ORDERED: Insulin DETEMIR 100 UNIT/ML X5UNITS SQ SCH (21:00)
[2017-11-22] MEDS ORDERED: traZODone 50 MG TABLET PO SCH (21:00)
[2017-11-22] MEDS ORDERED: Insulin LISPRO 300 UNITS/3 ML VIAL SQ SCH (21:00)
[2017-11-23 01:25] LABS: Basophils % 0.2 %; Eosinophils # 0.1 K/mcL (0.0-0.6); Eosinophils % 2.5 %; Hematocrit 26.3 % (35.3-44.9); Immature Granulocytes % 0.4 % (0-4); Lymphocytes # 1.3 K/mcL (0.6-4.6); Mean Corpuscular HGB Conc 31.6 g/dL (31.6-35.5); Mean Corpuscular Hemoglobin 34.3 pg (28.0-33.3); Mean Corpuscular Volume 108.7 fL (83.0-100.0); Mean Platelet Volume 10.6 fL (9.4-12.4); Monocytes # 0.4 K/mcL (0.0-1.3); Monocytes % 8.5 %; Platelet Count 156 K/mcL (140-400); Red Blood Count 2.42 M/mcL (3.82-4.97); Segmented Neutrophils % 61.4 %
[2017-11-23 01:26] LABS: Hemoglobin 8.3 g/dL (11.5-15.4)
[2017-11-23 01:44] LABS: Albumin 3.5 g/dL (3.5-5.7); Albumin/Globulin Ratio 1.3 (1.1-2.2); Bilirubin,Total 0.2 mg/dL (0.3-1.0); Calcium 9.4 mg/dL (8.6-10.3); Chol/HDL Ratio 2.6 (0-4.9); Globulin 2.8 g/dL (2.4-3.5); Magnesium 1.7 mg/dL (1.6-2.6); Potassium 4.8 mEq/L (3.5-5.1); Total Protein 6.3 g/dL (6.4-8.9)
[2017-11-23 03:38] LABS: Bilirubin,Urine Negative (Negative); Blood,Urine Negative (Negative); Clarity,Urine Clear (Clear); Color,Urine Yellow (Yellow); Glucose,Urine (UA) Normal (Normal); Ketones,Urine Negative (Negative); Leukocyte Esterase,Urine Negative (Negative); Nitrite,Urine Negative (Negative); Protein,Urine Negative (Neg-Trace); Urobilinogen,Urine Normal (Normal)
[2017-11-23] MEDS: *HR* OxyCODONE Immed Rel 5 MG TABLET PO PRN (04:39)
[2017-11-23] MEDS: *HR* Heparin 5,000 UNIT/ML VIAL SQ SCH ×3 (04:43→20:44)
--- NOTE | 2017-11-23 07:02 | Anesthesia Evaluation PreOp ---
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: Other (Anxiety/Depression) Other Medical History: Diabetes Type II (insulin dep.), GERD Anesthesia History: Past Anesthesia ( cholecystectomy, hip replacement Additional surgical history: 2 right and 1 left hip replcaement) : No Alcohol Use: occasionally Drug use: none Medications and Allergies Acarbose [Precose] 50 mg PO TID 06/20/17 [History] Albuterol Neb [Proventil Neb] 1 vial IH TID 06/20/17 [History] Albuterol Sulfate [Ventolin Hfa] 2 puff IH Q6H PRN 06/20/17 [History] Aspirin [Lo-Dose Aspirin EC] 81 mg PO DAILY 06/20/17 [History] Atorvastatin [Lipitor] 40 mg PO HS 06/20/17 [History] BuPROPion XL (24 HR) [Wellbutrin Xl] 300 mg PO QAM 06/20/17 [History] Duloxetine HCl [Cymbalta] 60 mg PO QAM 06/20/17 [History] Ergocalciferol (VITAMIN D2) [Vitamin D2] 50,000 unit PO QWEEK 06/20/17 [History] Fluticasone Propionate Nasal [Flonase] 1 spr NS DAILY 06/20/17 [History] Gabapentin [Neurontin] 600 mg PO TID 06/20/17 [History] Lisinopril [Zestril] 10 mg PO DAILY 06/20/17 [History] Magnesium Oxide [Magnesium] 400 mg PO DAILY 06/20/17 [History] Omeprazole [PriLOSEC] 20 mg PO DAILY 06/20/17 [History] Vit #76/Iron,Carb/FA [Pnv 29-1 Tablet] 1 tab PO DAILY 06/20/17 [History ] Tiotropium [Spiriva] 18 mcg IH DAILY 06/20/17 [History] Trazodone HCl 100 mg PO HS 06/20/17 [History] hydrOXYzine pamoate [HydrOXYzine Pamoate] 25 mg PO TID PRN 06/20/17 [History] metFORMIN [Glucophage] 500 mg PO BID 06/20/17 [History] Cyanocobalamin (B-12) [Vitamin B12] 1,000 mcg PO DAILY #30 tablet 06/22/17 [Rx] Acetaminophen [Extra Strength Non-Aspirin] 1,000 mg PO Q6H PRN 11/22/17 [History ] Albuterol Sulfate [Ventolin Hfa] 2 puff IH Q6H PRN 11/22/17 [History] Furosemide [Lasix] 60 mg PO QAM 11/22/17 [History] Insulin DETEMIR [Levemir] 26 unit SQ HS 11/22/17 [History] Insulin DETEMIR [Levemir] 28 unit SQ QAM 11/22/17 [History] Insulin Regular, Human [Novolin R] 0 - 12 unit SQ TID PRN 11/22/17 [History] Potassium Chloride [K-Tab ER] 40 meq PO QAM 11/22/17 [History] 3 Allergy/AdvReac Type Severity Reaction Status Date / Time No Known Drug Allergies Allergy none Verified 06/21/17 19:26 - Meds/Allergy Pre-op Review Medications Reviewed: Yes Allergies Reviewed: Yes Beta Blockers on Current Med List: No Anesthesia Results - Labs 11/23/17 00:41 11/23/17 00:41 Regadenoson Nuclear Stress Name: Nichole Walsh Date of Study: 03/16/2015 Indications: Chest Pain Impression: No significant ECG changes with regadenoson. Gated LVEF = 70%. Perfusion imaging is negative for myocardial infarction. Perfusion imaging is positive for mild-moderate stress-induced ischemia in the basal-mid inferior wall. Consider cardiology consultation. Date of Study: 03/18/2015 Date: 1955 Ht: 160.0 cm /63.0 in Medical Record#: [id number] Age: 59 Wt: 119. kg / 262.35 lb Account/Order#: [id number] Gender: Female BSA: 2.17 Order #: [id number] Fluoro Time: 1.3 minutes BMI: 46.48 Procedure Physician: Judi Muller MD Referring MD: Referring MD: Procedures Performed: LEFT HEART CATH Indications: Abnormal Test - Stress Impressions: Minimal atherosclerotic coronary artery disease. The left ventricle is normal and has normal contractility EF 65%. Echo in 02/2015 shows EF 65% with moderate diastolic dysfunction. - Imaging EKG: report reviewed (SR) Anesthesia Exam O2 Sat Height 1.57 m Height 1.57 m Weight 107.955 kg Weight 107.955 kg O2 Sat by Pulse Oximetry 95 O2 Sat by Pulse Oximetry 95 O2 Sat by Pulse Oximetry 95 O2 Sat by Pulse Oximetry 95 O2 Sat by Pulse Oximetry 95 O2 Sat by Pulse Oximetry 95 O2 Sat by Pulse Oximetry 95 O2 Sat by Pulse Oximetry 100 O2 Sat by Pulse Oximetry 100 O2 Sat by Pulse Oximetry 97 O2 Sat by Pulse Oximetry 97 Vital Signs Temp Pulse Resp BP Pulse Ox 97.5 F L 79 22 115/60 97 11/22/17 10:49 11/22/17 10:49 11/22/17 10:49 11/22/17 10:49 11/22/17 10:49 Vital Signs/O2 Sat, Most Current Temp Pulse Resp BP Pulse Ox 98.7 F 86 18 88/53 95 11/23/17 06:51 11/23/17 06:51 11/23/17 06:51 11/23/17 06:51 11/23/17 06:51 NPO (# of Hours): > 8 hrs Pain Scale: 0 Pain Scale Used: Numeric (1 - 10) - HEENT Pupil (Motor): Pupils equal, EOMI Mallampati: III Teeth: Missing Denture Type: Upper: Complete Oral Opening: Greater than 3 - DITCH INSPECTOR LOC: Oriented DITCH INSPECTOR Motor: Normal RUE, Normal LUE, Normal RLE, Normal LLE, Normal Face DITCH INSPECTOR Sensory: Normal: RUE, LUE, RLE, LLE, Face - Cardiac Rhythm: Regular Murmur: None JVD: No Carotid Bruit: No - Pulmonary Breath Sounds: bilateral Clear Respiratory Effort: Symmetrical Anesthesia Assess/Plan ASA Score: 4 Modified [place] Scale for Level of Consciousness: Cooperative, oriented, and tranquil Anesthetic Plan: General Autologous Blood: Yes Monitoring Plan: Standard Monitors Recovery Plan: PACU
[2017-11-23] MEDS ORDERED: *HR* FentaNYL (PF) 100 MCG/2 ML VIAL ONE (07:35)
[2017-11-23] MEDS ORDERED: *HR* Propofol 200 MG/20 ML VIAL IVP ONE (07:35)
[2017-11-23] MEDS ORDERED: Lidocaine -MPF 2% 2 ML VIAL ONE ×3 (07:39→08:09)
[2017-11-23] MEDS ORDERED: Dexamethasone 4 MG/ML VIAL ONE (07:39)
[2017-11-23] MEDS ORDERED: Ondansetron 4 MG/2 ML VIAL ONE (07:39)
[2017-11-23] MEDS ORDERED: *HR* Succinylcholine 200 MG/10 ML VIAL IVP ONE (07:39)
[2017-11-23] MEDS ORDERED: *HR* Rocuronium Bromide 50 MG/5 ML VIAL ONE (07:39)
[2017-11-23] MEDS ORDERED: *HR* Labetalol 20 MG/4 ML SYRINGE IVP PRN (07:52)
[2017-11-23] MEDS ORDERED: Ondansetron 4 MG/2 ML VIAL IVP ONE ×2 (07:52→11:43)
[2017-11-23] MEDS ORDERED: *HR* Promethazine 25 MG/ML VIAL IVP PRN ×2 (07:52→11:43)
[2017-11-23] MEDS ORDERED: Ketorolac 15 MG/ML VIAL IVP ONE (07:52)
[2017-11-23] MEDS ORDERED: Albuterol 2.5 MG/3 ML NEBULIZER IH ONE (07:52)
[2017-11-23] MEDS ORDERED: Bupivacaine/EPI 1:200k 0.25%PF 30 ML VIAL ONE (07:55)
[2017-11-23] MEDS: Insulin LISPRO 300 UNITS/3 ML VIAL SQ SCH ×4 (07:57→20:49)
[2017-11-23] MEDS ORDERED: Bupivacaine/PF 0.75% in Dex 2 ML AMPUL INFILT ONE (08:04)
[2017-11-23] MEDS ORDERED: ceFAZolin 2,000 MG in Water for inj. (sterile) 20 ML 10 ML IVP ONE (08:09)
[2017-11-23] MEDS ORDERED: Morphine Sulfate/PF 5mg/10mL Vial ONE (08:11)
--- NOTE | 2017-11-23 08:34 | Anesthesia Procedures ---
Date of Encounter: 11/23/17 Time of Encounter: 08:20 Procedures: Anesthesia - Epidural/Spinal Patient ID/Chart reviewed: Yes Patient examined: Yes Supplemental Oxygen: None/Room Air Patient position: upright Local Anesthetic: Lidocaine 1% Amount of Local Anesthetic used: 5 Interspace Used: L4-L5 Blood: No CSF: Yes Paresthesia: No Spinal Needle Gauge: 22 Spinal Dose: 15 mg hyperbaric bupiv + .3mg duramorph Procedure: patinet sitting, P&D sterile, skin wheal and deep local with lidocaine. Introducer needle placed, 22ga 4.5in sprotte needle placed. Attempt x 1, C/C csf , no paresthesias or blood. Medication placed.. Remained sitting 1 minute then laid flat.
[2017-11-23] MEDS ORDERED: Cyanocobalamin (B-12) 1,000 MCG TABLET PO SCH (09:00)
[2017-11-23] MEDS ORDERED: Prenatal Vit/FA 1 EACH TABLET PO SCH (09:00)
[2017-11-23] MEDS ORDERED: BuPROPion XL (24 HR) 150 MG TABLET PO SCH (09:00)
[2017-11-23] MEDS ORDERED: Insulin DETEMIR 100 UNIT/ML X5UNITS SQ SCH (09:00)
[2017-11-23] MEDS ORDERED: Furosemide 20 MG TABLET PO SCH (09:00)
[2017-11-23] MEDS ORDERED: Magnesium Oxide 400 MG TABLET PO SCH (09:00)
[2017-11-23] MEDS ORDERED: Fluticasone Propionate Nasal 50 MCG/SPRAY BOTTLE NS SCH (09:00)
[2017-11-23] MEDS: Albuterol 2.5 MG/3 ML NEBULIZER IH SCH ×2 (09:59→15:48)
[2017-11-23] MEDS ORDERED: Tiotropium 18 MCG inhalation IH SCH (10:00)
--- NOTE | 2017-11-23 11:08 | Operative Note ---
Date of procedure: 11/23/17 Pre-op diagnosis: subacute right ankle trimalleolar fracture discloation Post-op diagnosis: same Procedure: ORIF of right ankle fracture ORIF of syndesmosis Application of delta external fixator right lower extremity Implants: [place] locking plate and screws, jose 3.0mm partially threaded cannulated screws, [place] nelson 3 external fixator Complications: none Anesthesia: MAC, other (spinal anesthesia) Local Anesthetics: 0.25% Sensorcaine HCL with Epinephrine 1:200,000 SubQ (cc) Surgeon: Marcelo Burnett Was there an assistant manager quality management present: No Estimated blood loss (cc): 30 Specimen: none Condition: stable Disposition: PACU Procedure in Detail: Indications: 62-year-old diabetic female a subacute trimalleolar ankle fracture/ dislocation of the right lower extremity which she sustained in September 2017. She missed her follow-up appointment with sports medicine and then was referred to us when she did return and have an x-ray of her right ankle noting increased displacement and dislocation. There was also some callus formation surrounding the fractures. A lengthy discussion was had with the patient regarding trying to perform an ORIF versus a fusion. It was made clear to the patient that she could require a fusion of the ankle and/or hindfoot in the future. 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 No guarantees were made as to the outcome. Nature of the above procedures, risks first benefits potential complications and consequences of surgery in her condition were discussed at length including but not limited to infection bleeding swelling numbness tingling heart attack blood clot amputation of leg arthritis loss of functionality need for further surgery, etc. It was also explained that she would require future surgery for removal of an external fixator. The patient was given a spinal block by anesthesia. The right lower extremity was scrubbed prepped and draped in the usual sterile fashion. 0.25% Marcaine with epinephrine was injected into the right lower extremity. The right thigh tourniquet was inflated to 300 mmHg. ORIF of right trimalleolar ankle fracture/dislocation. A half pin was placed into the calcaneus and reduction of the talus into the ankle mortise was attempted however reduction was not able to be obtained at that time. Attention was directed to the medial aspect of the patient's right ankle where # 15 blade was used to make an incision over the medial malleolus. The C-arm was used to identify the medial malleolus fracture which was noted to be partially healed and malalignment. A sagittal saw was used to cut through the callus bone and the medial malleolus fragment was able to be moved medial. Attention was then directed laterally where a #15 blade was used to make an incision over the fibula. The fibula fracture zone was evident with callus formation. The callus formation was resected with the sagittal saw and the partially healed callus portion of the fracture zone was cut with the sagittal saw. The fibula was noted on C-arm to be in a shortened position. The talus was still not reducible into the ankle mortise and an accessory to centimeter incision was made on the anterolateral aspect of the patient's right ankle was made and blunt dissection was carried out down to the level of the ankle joint and the capsule of the ankle joint was incised and scar tissue surrounding the anterior aspect of the joint capsule of the ankle was released. The talus was then able to be reduced into the ankle mortise using the half pin which was thrown through the calcaneus. The ankle joint was pinned temporarily into position with a Steinmann pin. The fibula was slid down the fracture site lengthened approximately 1 cm. A 3.5 mm lag screw was thrown through the fracture using standard technique. The medial malleolus fracture fragment was then fixated with 2 [place] 3.0 mm partially threaded cannulated screws. The fracture on the lateral aspect of the ankle was then fixated with the Jose locking plate and 3.5 mm locking and nonlocking screws. Two syndesmotic screws were thrown tib-pro-fib with the reduction clamp in place and ankle held in neutral position. Good tib-fib overlap was present. There was no increased in medial clear space. The talus was in the ankle mortise. Application of delta external fixator. 35.0 mm half pins were thrown from anterior to posterior in the tibia and connected with the bar to the pin in the calcaneus to maintain position and alignment of the talus and the ankle mortise. The temporary fixation was then removed. C-arm was used confirm that the talus stayed reduced in the ankle mortise. Fluoroscopy was utilized during application of the delta external fixator frame. Surgical sites were flushed with normal sterile saline. Deep and subcutaneous tissues were closed with 2-0 Vicryl. 0.25% Marcaine with epinephrine was injected around the pin sites. 2-0 Prolene was used to close the skin surrounding the pin sites. The skin was reapproximated at the ankle incisions utilizing shaye. The patient tolerated the anesthesia and the procedure well and was escorted the recovery room with vital signs stable and vascular status intact to the right foot noted by instant capillary refill time to all digits of the right foot. An adequately padded posterior splint was applied following application of sterile bandage. Xeroform was placed around the pin sites and over the surgical incisions as well as 4 x 4 gauze and Kerlix. The patient was brought to the PACU and will return to the floor.
[2017-11-23] MEDS ORDERED: Ondansetron 4 MG/2 ML VIAL IVP PRN (11:43)
[2017-11-23] MEDS ORDERED: hydrOXYzine pamoate 25 MG CAPSULE PO PRN (11:43)
[2017-11-23] MEDS ORDERED: *HR* OxyCODONE Immed Rel 5 MG TABLET PO PRN (11:43)
[2017-11-23] MEDS ORDERED: Naloxone 0.4 MG/ML INJ IVP PRN (11:43)
[2017-11-23] MEDS ORDERED: Ipratropium/Albuterol Neb 3 ML IH PRN (11:43)
[2017-11-23] MEDS ORDERED: Acetaminophen 325 MG TABLET PO PRN (11:43)
[2017-11-23] MEDS ORDERED: D5% in Water 1,000 ML IVC PRN (11:43)
[2017-11-23] MEDS ORDERED: Dextrose Gel 15 GM/37.5 ML TUBE PO PRN ×2 (11:43)
[2017-11-23] MEDS ORDERED: *HR* HYDROcodone/Acet 5/325 mg TABLET PO PRN (11:43)
[2017-11-23] MEDS ORDERED: *HR* Dextrose 50 % in Water (Syg) 50 ML SYRINGE IVP PRN (11:43)
[2017-11-23] MEDS ORDERED: Menthol 9.1 MG LOZENGE PO PRN (11:43)
[2017-11-23] MEDS ORDERED: GuaiFENesin/Dextromethorphan TABLET PO PRN (11:43)
--- NOTE | 2017-11-23 11:48 | Anesthesia Evaluation Post Op ---
Date of Encounter: 11/23/17 Time of Encounter: 11:47 - Vital Signs Vital Signs: Vital Signs/O2 Sat, Most Current Temp Pulse Resp BP Pulse Ox 98.0 F 77 16 151/73 94 11/23/17 11:37 11/23/17 11:37 11/23/17 11:37 11/23/17 11:37 11/23/17 11:37 - Lungs Lungs: Clear Ascult./Percussion - Airway Airway: Non-obstructed - Cardiovascular Regular Rate - Mental Status Mental Status: Alert & Oriented, Answers Appropriately - Pain Pain Scale: 0 Pain Scale used: Numeric (1 - 10) - Nausea Vomiting Nausea Vomiting: Not Present - Hydration Hydration: Tolerates oral liquids, Has not voided - Discharge PostOp Status: Transfer Patient to floor
--- NOTE | 2017-11-23 12:42 | Internal Med Progress Note ---
Date of Encounter: 11/23/17 Time of Encounter: 12:30 - Assessment and plan (1) Trimalleolar fracture of ankle, closed Current Visit: Yes Status: Acute Assessment and plan: Post op day #1 s/p ORIF. Tolerated procedure well with no acute complications. Await PT recs for discharge planning Qualifiers: Encounter type: initial encounter Laterality: right Qualified Code(s): S82.851A - Displaced trimalleolar fracture of right lower leg, initial encounter for closed fracture (2) Diabetes mellitus Current Visit: Yes Status: Chronic Assessment and plan: Hx of chronic diabetes controlled by oral medications and insulin. Continue pts. AM and HS insulin. Diabetic diet. 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 insulin use: with fci use Diabetes mellitus complication status: with neurologic complications Diabetes mellitus complication detail: with polyneuropathy Qualified Code(s): E11.42 - Type 2 diabetes mellitus with diabetic polyneuropathy; Z79.4 - intermediate (current) use of insulin; Z79.4 - salvage determiner ( current) use of insulin; Z79.4 - salvage determiner (current) use of insulin; Z79.4 - salvage determiner (current) use of insulin (3) Hypertension Current Visit: Yes Status: Chronic Assessment and plan: Continue lisinopril Qualifiers: Hypertension type: essential hypertension Qualified Code(s): I10 - Essential (primary) hypertension (4) COPD (chronic obstructive pulmonary disease) Current Visit: Yes Status: Chronic Assessment and plan: Hx of chronic COPD. Stable. Supplemental O2 w/titration and SpO2 monitoring. DuoNebs Q6HR PRN. Continue pts. inhalers. Qualifiers: COPD type: unspecified COPD Qualified Code(s): J44.9 - Chronic obstructive pulmonary disease, unspecified (5) Diastolic CHF Current Visit: Yes Status: Chronic Assessment and plan: Hx of chronic diastolic CHF. Stable. Will use IV fluids cautiously. Echocardiogram. Continuous cardiac telemetry. Qualifiers: Heart failure chronicity: chronic Qualified Code(s): I50.32 - Chronic diastolic (congestive) heart failure (6) HLD (hyperlipidemia) Current Visit: Yes Status: Chronic Assessment and plan: Hx of chronic HLD. Lipid panel in a.m. labs. Continue pts. Lipitor. Qualifiers: Hyperlipidemia type: pure hypercholesterolemia Qualified Code(s): E78.00 - Pure hypercholesterolemia, unspecified; E78.0 - Pure hypercholesterolemia - Time Spent With Patient Total time spent is greater than 50% in coordination of care (as documented) at patient's floor/unit and/or counseling patient: - Subjective Interval history: No acute events overnight - Constitutional Vitals: Temp Pulse Resp BP Pulse Ox 98.0 F 82 16 139/61 93 11/23/17 11:47 11/23/17 11:47 11/23/17 11:47 11/23/17 11:47 11/23/17 11:47 General appearance: Present: A&O X 0, cooperative, A&O X 3, morbidly obese, pleasant, no acute distress, answers questions appropriately - Head Head exam: Present: atraumatic, normocephalic - Eye Eye exam: Present: PERRL, conjuntiva pink, sclera anicteric Pupils: Present: PERRL - Neck Neck exam general surgery: Present: supple, trachea midline. Absent: lymphadenopathy - Respiratory Respiratory exam: Present: CTAB. Absent: accessory muscle use, rales, rhonchi, wheezes - Cardiovascular Cardiovascular exam: Present: RRR, +S1, +S2. Absent: diastolic murmur, gallop, rubs, systolic murmur - GI/Abdominal GI/Abdominal exam: Present: normal bowel sounds, soft, no peritoneal signs. Absent: distended, tenderness - Extremities Exam Extremities exam: Present: warm, radial pulses palpable and symmetrical. Absent : calf tenderness, cyanotic, pedal edema - Neurological Exam Neurological exam: Present: CN II-XII intact, oriented X3, no focal deficits. Absent: pronater drift, facial droop, speech deficit - Skin Skin exam: Present: dry, intact Internal Medicine: Result - Labs CBC & Chem 7: 11/23/17 00:41 11/23/17 00:41 Labs: Short CBC 11/23/17 Range/Units 00:41 WBC 4.8 (4.3-11.1) K/mcL Hgb 8.3 L D (11.5-15.4) g/dL Hct 26.3 L (35.3-44.9) % Plt Count 156 (140-400) K/mcL Neutrophils # 3.0 (1.6-8.9) K/mcL BMP 11/23/17 00:41 Sodium 137 Potassium 4.8 Chloride 102 Carbon Dioxide 31 H BUN 21 Creatinine 1.16 Glucose 177 H Calcium 9.4 Liver Function 11/23/17 Range/Units 00:41 Total Bilirubin 0.2 L (0.3-1.0) mg/dL AST 19 (13-39) Units/L ALT 22 (7-52) Units/L Alkaline Phosphatase 95 (34-104) Units/L Albumin 3.5 (3.5-5.7) g/dL Urine 11/23/17 Range/Units 03:25 Urine Color Yellow (Yellow) Urine Clarity Clear (Clear) Urine pH 6.0 (5.0-8.0) pH Units Ur Specific [place] 1.010 (1.010-1.025) Urine Protein Negative (Neg-Trace) mg/dL Urine Glucose (UA) Normal (Normal) mg/dL - Impressions Impressions Echocardiogram 11/22/17 13:40 Impressions: LVEF 60-65%. Mild left ventricular diastolic dysfunction. No evidence of pulmonary hypertension. No significant valvular dysfunction. Left Ventricular Wall Motion: Rest Echo Findings All wall segments showed normal motion. Findings: Study Quality * Technically adequate exam. Right Ventricle * Normal right ventricular structure and function. Right Atrium * Normal right atrial size. Aortic Valve * Trileaflet aortic valve with normal function. Mitral Valve * Normal mitral valve structure and function. Interatrial Septum * No evidence of PFO by color Doppler. Aorta * Normally sized aortic root. Pericardium * The pericardium appears normal. ECG Findings * Normal sinus rhythm. Left Atrium * Mildly dilated left atrium. IVC * Normal IVC dimensions and inspiratory collapse. Left Ventricle * LVEF 60-65%. * Mild left ventricular diastolic dysfunction. Tricuspid Valve * No evidence of pulmonary hypertension. * Estimated RVSP is 34 mmHg. * Estimated RA pressure is 0-5 mmHg. Ankle X-Ray 11/23/17 08:30 IMPRESSION: Intraprocedural fluoroscopic spot images as above. See separate procedure report for more information. D/ / Moi Watt MD / Moi Watt MD Interpreting Provider: Moi Watt MD Fluoroscopy 11/23/17 08:30 IMPRESSION: Intraprocedural fluoroscopic spot images as above. See separate procedure report for more information. D/ / Moi Watt MD / Moi Watt MD Interpreting Provider: Moi Watt MD Consult Discharge Plan - Plan Referrals: Dori Sutton, [Primary Care Provider] -
[2017-11-23] MEDS: Gabapentin 300 MG CAPSULE PO SCH ×3 (13:44→20:44)
[2017-11-23] MEDS ORDERED: Albuterol 2.5 MG/3 ML NEBULIZER ONE (15:47)
[2017-11-23] MEDS ORDERED: ceFAZolin 2,000 MG in 0.9 % Sodium Chloride 100 ML IVP SCH (16:00)
[2017-11-23] MEDS ORDERED: Ketorolac 30 MG/ML VIAL IVP ONE (16:26)
[2017-11-23] MEDS: ceFAZolin 2,000 MG in 0.9 % Sodium Chloride 100 ML IVP SCH ×2 (16:53→23:21)
[2017-11-23] MEDS: Insulin DETEMIR 100 UNIT/ML X5UNITS SQ SCH (20:51)
[2017-11-23] MEDS ORDERED: traZODone 50 MG TABLET PO SCH (21:00)
[2017-11-23 21:30] LABS: ABG Base Excess 7 mEq/L (-2 to 3); ABG HCO3 37 mEq/L (21-27); ABG Oxygen Saturation 88 % (95-98); ABG PCO2 92 mmHg (35-45); ABG PH 7.21 pH Units (7.32-7.45); ABG PO2 69 mmHg (85-104); ABG TCO2 40 mEq/L (20-26)
[2017-11-23] MEDS ORDERED: Dexmedetomidine HCl 400 MCG/100 ML MLS IVC ONE (22:37)
[2017-11-23] MEDS: Dexmedetomidine HCl 400 MCG/100 ML MLS IVC SCH (22:43)
--- NOTE | 2017-11-23 23:34 | Event Note ---
<Emile Lebron - Last Filed: 11/23/17 23:48> Date of Encounter: 11/23/17 Time of Encounter: 20:32 Alerted by patient's nurse that patient's SPO2 was descending to the 60s while asleep. Nurse tried encouraging patient to wear BiPAP mask, however patient stated she would rather have a tube down her throat and were BiPAP mask. Nurse requested that I come talk to patient. Went to see patient who was hard to arouse in bed to to sleeping/snoring. SPO2 in low 60s while asleep. Informed patient that she needed to her BiPAP in order to increase her oxygen saturation. Patient refused to her BiPAP. Informed patient that I could give her IVP Ativan in order to reduce her anxiety while wearing BiPAP. Patient refused and became adamant and agitated. Notified by pts. nurse at 21:32 that CO2 was critical at [address] on the patient who was refusing BiPAP. Other ABG values included pH of 7.21, PO2 of 69, HCO3 of 36, and SpO2 of 87%. Discussed case and pt. w/Dr. Alexandra who recommended trying to convince pt. to wear BiPAP and if unsuccessful then transfer pt. to ICU. Again went to see patient who is now more belligerent. Informed pt. that she would require intubation soon if she continued to refuse BiPAP. Pt. again adamantly refused. Pt. is Full Code. Instructed nurse to call patient's mother and informed her of the situation to hopefully encourage the patient to her BiPAP. Patient became agitated and hung up on mother. Told nursing staff to leave her alone. Called Bed Management to secure ICU bed. ICU bed 8 open for pt. and I instructed nurses to transfer pt. to ICU immediately to avoid Rapid Response or Code Blue situation. Notified ICU that pt. was on her way to the unit and would require intubation. Pts. nurse called report to ICU nurse DULCE Emmanuel. Nurse also notified pts. mother of pt. being moved to ICU. Pt. to be monitored closely. <Jaquelin Alexandra - Last Filed: 11/24/17 01:06> Date of Encounter: 11/24/17 Saw pt in ICU. Pt agrees to try BiPAP but doesn't want any discomfort. Will place her on BipAP under low rate dexmeditomidine. Repeat ABG. Closely monitor pt in ICU.
[2017-11-24 02:42] LABS: Eosinophils # 0.1 K/mcL (0.0-0.6); Eosinophils % 1.3 %; Hematocrit 27.6 % (35.3-44.9); Hemoglobin 8.6 g/dL (11.5-15.4); Immature Granulocytes % 0.4 % (0-4); Lymphocytes # 0.7 K/mcL (0.6-4.6); Lymphocytes % 16.4 %; Mean Corpuscular HGB Conc 31.2 g/dL (31.6-35.5); Mean Corpuscular Hemoglobin 34.4 pg (28.0-33.3); Mean Corpuscular Volume 110.4 fL (83.0-100.0); Mean Platelet Volume 10.3 fL (9.4-12.4); Monocytes # 0.7 K/mcL (0.0-1.3); Monocytes % 14.9 %; Platelet Count 115 K/mcL (140-400); Red Cell Distribution Width 12.6 % (11.5-14.5)
[2017-11-24 03:03] LABS: Macrocytosis Present (Not Present); Platelet Estimate Slight Decrease (Normal)
[2017-11-24 03:04] LABS: Calcium 8.9 mg/dL (8.6-10.3); Potassium 6.8 mEq/L (3.5-5.1)
[2017-11-24 03:43] LABS: ABG Base Excess 3 mEq/L (-2 to 3); ABG HCO3 33 mEq/L (21-27); ABG Oxygen Saturation 68 % (95-98); ABG PCO2 86 mmHg (35-45); ABG PH 7.19 pH Units (7.32-7.45); ABG PO2 46 mmHg (85-104); ABG TCO2 36 mEq/L (20-26)
[2017-11-24] MEDS ORDERED: Insulin Human Regular 10 UNIT in 0.9 % Sodium Chloride 10 ML IV ONE (03:53)
[2017-11-24] MEDS ORDERED: *HR* Dextrose 50 % in Water (Syg) 50 ML SYRINGE IVP ONE (03:53)
[2017-11-24] MEDS: Albuterol 2.5 MG/3 ML NEBULIZER IH SCH ×3 (04:03→16:56)
[2017-11-24] MEDS: *HR* Heparin 5,000 UNIT/ML VIAL SQ SCH ×3 (05:01→21:08)
[2017-11-24] MEDS: Dexmedetomidine HCl 400 MCG/100 ML MLS IVC SCH ×2 (05:02→20:01)
[2017-11-24] MEDS ORDERED: *HR* FentaNYL (PF) 100 MCG/2 ML VIAL IVP ONE (07:42)
[2017-11-24] MEDS: Furosemide 20 MG TABLET PO SCH (07:43)
[2017-11-24] MEDS: Gabapentin 300 MG CAPSULE PO SCH (07:44)
[2017-11-24] MEDS ORDERED: *HR* FentaNYL (PF) 100 MCG/2 ML VIAL ONE (07:56)
[2017-11-24] MEDS: ceFAZolin 2,000 MG in 0.9 % Sodium Chloride 100 ML IVP SCH (07:59)
[2017-11-24] MEDS: Insulin LISPRO 300 UNITS/3 ML VIAL SQ SCH ×4 (08:00→19:09)
[2017-11-24] MEDS: Insulin DETEMIR 100 UNIT/ML X5UNITS SQ SCH ×2 (08:00→20:02)
[2017-11-24] MEDS: Fluticasone Propionate Nasal 50 MCG/SPRAY BOTTLE NS SCH (08:00)
[2017-11-24] MEDS: Pantoprazole 40 MG VIAL IVP SCH (08:30)
[2017-11-24] MEDS ORDERED: Magnesium Oxide 400 MG TABLET PO SCH (09:00)
[2017-11-24] MEDS ORDERED: BuPROPion XL (24 HR) 150 MG TABLET PO SCH (09:00)
[2017-11-24] MEDS ORDERED: Prenatal Vit/FA 1 EACH TABLET PO SCH (09:00)
[2017-11-24] MEDS ORDERED: Cyanocobalamin (B-12) 1,000 MCG TABLET PO SCH (09:00)
--- NOTE | 2017-11-24 09:11 | Pulmonology Consult Note ---
<Mitch Carr M - Last Filed: 11/24/17 09:15> Date of Encounter: 11/24/17 Medications and Allergies Acarbose [Precose] 50 mg PO TID 06/20/17 [History] Albuterol Neb [Proventil Neb] 1 vial IH TID 06/20/17 [History] Albuterol Sulfate [Ventolin Hfa] 2 puff IH Q6H PRN 06/20/17 [History] Aspirin [Lo-Dose Aspirin EC] 81 mg PO DAILY 06/20/17 [History] Atorvastatin [Lipitor] 40 mg PO HS 06/20/17 [History] BuPROPion XL (24 HR) [Wellbutrin Xl] 300 mg PO QAM 06/20/17 [History] Duloxetine HCl [Cymbalta] 60 mg PO QAM 06/20/17 [History] Ergocalciferol (VITAMIN D2) [Vitamin D2] 50,000 unit PO QWEEK 06/20/17 [History] Fluticasone Propionate Nasal [Flonase] 1 spr NS DAILY 06/20/17 [History] Gabapentin [Neurontin] 600 mg PO TID 06/20/17 [History] Lisinopril [Zestril] 10 mg PO DAILY 06/20/17 [History] Magnesium Oxide [Magnesium] 400 mg PO DAILY 06/20/17 [History] Omeprazole [PriLOSEC] 20 mg PO DAILY 06/20/17 [History] Vit #76/Iron,Carb/FA [Pnv 29-1 Tablet] 1 tab PO DAILY 06/20/17 [History ] Tiotropium [Spiriva] 18 mcg IH DAILY 06/20/17 [History] Trazodone HCl 100 mg PO HS 06/20/17 [History] hydrOXYzine pamoate [HydrOXYzine Pamoate] 25 mg PO TID PRN 06/20/17 [History] metFORMIN [Glucophage] 500 mg PO BID 06/20/17 [History] Cyanocobalamin (B-12) [Vitamin B12] 1,000 mcg PO DAILY #30 tablet 06/22/17 [Rx] Acetaminophen [Extra Strength Non-Aspirin] 1,000 mg PO Q6H PRN 11/22/17 [History ] Albuterol Sulfate [Ventolin Hfa] 2 puff IH Q6H PRN 11/22/17 [History] Furosemide [Lasix] 60 mg PO QAM 11/22/17 [History] Insulin DETEMIR [Levemir] 26 unit SQ HS 11/22/17 [History] Insulin DETEMIR [Levemir] 28 unit SQ QAM 11/22/17 [History] Insulin Regular, Human [Novolin R] 0 - 12 unit SQ TID PRN 11/22/17 [History] Potassium Chloride [K-Tab ER] 40 meq PO QAM 11/22/17 [History] 3 Allergy/AdvReac Type Severity Reaction Status Date / Time No Known Drug Allergies Allergy none Verified 06/21/17 19:26 All Systems: The remainder of the systems were reviewed and are negative Physical Examination Vital Signs: Vital Signs, Last 4 Hours Temp Pulse Resp BP Pulse Ox 11/24/17 09:00 85 18 94/55 96 11/24/17 08:51 101.5 F H 11/24/17 08:00 101.5 F H 95 17 116/64 100 11/24/17 07:00 105 22 139/59 100 11/24/17 06:00 88 19 165/76 100 Results - Laboratory Findings CBC and BMP: 11/24/17 02:30 11/24/17 07:56 ABG ABG pH 7.19 pH Units (7.32-7.45) L* 11/24/17 03:34 ABG pCO2 86 mmHg (35-45) H* 11/24/17 03:34 ABG pO2 46 mmHg (85-104) L* 11/24/17 03:34 ABG O2 Saturation 68 % (95-98) L 11/24/17 03:34 Abnormal lab findings: Abnormal lab results RBC 2.50 M/mcL (3.82-4.97) L 11/24/17 02:30 Hgb 8.6 g/dL (11.5-15.4) L 11/24/17 02:30 Hct 27.6 % (35.3-44.9) L 11/24/17 02:30 MCV 110.4 fL (83.0-100.0) H 11/24/17 02:30 MCH 34.4 pg (28.0-33.3) H 11/24/17 02:30 MCHC 31.2 g/dL (31.6-35.5) L 11/24/17 02:30 Plt Count 115 K/mcL (140-400) L 11/24/17 02:30 Platelet Estimate Slight Decrease (Normal) L 11/24/17 02:30 Macrocytosis Present (Not Present) A 11/24/17 02:30 ABG pH 7.19 pH Units (7.32-7.45) L* 11/24/17 03:34 ABG pCO2 86 mmHg (35-45) H* 11/24/17 03:34 ABG pO2 46 mmHg (85-104) L* 11/24/17 03:34 ABG HCO3 33 mEq/L (21-27) H 11/24/17 03:34 ABG Total CO2 36 mEq/L (20-26) H 11/24/17 03:34 ABG O2 Saturation 68 % (95-98) L 11/24/17 03:34 Sodium 133 mEq/L (136-145) L 11/24/17 02:30 Potassium 6.0 mEq/L (3.5-5.1) H 11/24/17 07:56 Creatinine 1.41 mg/dL (0.60-1.20) H 11/24/17 02:30 Est GFR ( Amer) 46 (> 60) L 11/24/17 02:30 Est GFR (Non-Af Amer) 38 (> 60) L 11/24/17 02:30 Glucose 157 mg/dL (70-105) H 11/24/17 02:30 POC Glucose 148 mg/dL (70-99) H 11/23/17 22:14 Total Bilirubin 0.2 mg/dL (0.3-1.0) L 11/23/17 00:41 Serum Total Protein 6.3 g/dL (6.4-8.9) L 11/23/17 00:41 - Clinical Findings Intake & Output: Intake & Output 11/23/17 11/24/17 11/24/17 23:59 07:59 15:59 Intake Total 340 / 340 1200 / 1200 Balance 340 / 340 1200 / 1200 Weight 111 kg Consult Discharge Plan - Plan Referrals: Dori Sutton DO [Primary Care Provider] - - Attending Attestation I examined this patient and my medical decision-making was reviewed with the Resident Physician. I agree with the documented findings, disposition and treatment plan as described except to the extent set forth below. Patient seen and examined. Labs, radiology, chart personally reviewed. 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 We will start her on low-dose systemic steroid and continue bronchodilators and keep her nothing by mouth for now. Patient has evidence of acute on chronic respiratory failure with hypercapnia and will repeat ABG if worsen and mental status no improvement then she will need invasive mechanical ventilation. Cardiovascular: stable GI: Nutrition per dietary and GI prophylaxis per routine Heme: DVT prophylaxis per routine Renal; urine out put and renal funtion reviewed Endorcine: blood glucose is monitored Lines: all lines checked and no evidence of infections Skin: skin care to prevent pressure ulcers per nursing routine care Close monitoring I spent 35 min of Critical Care time with this patient. It involved decision making of high complexity to assess, manipulate, and support vital organ system failure and/or to prevent further life threatening deterioration of the patient' s condition. The time involved in the performance of separately reportable procedures was not counted toward critical care time. <Adela Bailey - Last Filed: 11/24/17 22:50> Date of Encounter: 11/24/17 Time of Encounter: 10:00 Assessment and Plan (1) Acute on chronic respiratory acidosis Current Visit: Yes Status: Acute Improving Etiology possibly med-induced vs anxiety effect Initial ABG: pH 7.21 / pCO2 92 / pO2 69 / HCO3 37 / O2 Sat 88% With BiPAP pH has normalized, pCO2 is decreasing, O2 Sat 100% Tolerating nasal cannula with O2 sats in 90's Reassess respiratory status in morning Precedex drip for anxiety (2) COPD (chronic obstructive pulmonary disease) Current Visit: Yes Status: Chronic Continuous home oxygen 3L Doubt COPD exacerbation Continue inhalers Duonebs PRN Start Solu-Medrol 40mg IV Q8H Qualifiers: COPD type: unspecified COPD Qualified Code(s): J44.9 - Chronic obstructive pulmonary disease, unspecified (3) Diastolic CHF Current Visit: Yes Status: Chronic 11/22/17 Echo: LVEF 60-65%, mild LV diastolic dysfunction, no evidence of pulm HTN , no significant valvular dysfunction Holding diuretics d/t low blood pressures Qualifiers: Heart failure chronicity: chronic Qualified Code(s): I50.32 - Chronic diastolic (congestive) heart failure (4) Diabetes mellitus Current Visit: Yes Status: Chronic Well controlled since admission Recent Hgb A1c 5.6% Continue sliding scale insulin Qualifiers: Diabetes mellitus type: type 2 Diabetes mellitus fpc insulin use: with fpc use Diabetes mellitus complication status: with neurologic complications Diabetes mellitus complication detail: with polyneuropathy Qualified Code(s): E11.42 - Type 2 diabetes mellitus with diabetic polyneuropathy; 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.4 - 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 (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) use of insulin; Z79.4 - assisted ( current) use of insulin; Z79.4 - 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 (current) use of insulin; Z79.4 - 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 (current) use of insulin (5) Trimalleolar fracture of ankle, closed Current Visit: Yes Status: Acute POD #1 s/p ORIF right ankle fracture Further management per podiatry Qualifiers: Encounter type: initial encounter Laterality: right Qualified Code(s): S82.851A - Displaced trimalleolar fracture of right lower leg, initial encounter for closed fracture (6) DVT prophylaxis Current Visit: Yes Status: Acute Heparin 5,000 units subcutaneous Q8H (7) Hyperkalemia Current Visit: Yes Status: Acute Improving Possible etiology dehydration in setting of K-sparing diuretics K 6.8 this morning Holding furosemide Monitor electrolytes with AM labs History of Present Illness Consult date: 11/24/17 History of present illness: Ms. Walsh is a 62 year-old female who came to the ICU after SpO2 dropped to 60' s while sleeping last night. BiPAP was ordered for the pt, but she refused to wear the BiPAP and became very agitated. Her ABG last night was significant for pH of 7.21 and critical high CO2 of 92. Multiple attempts by staff to get pt to agree to wearing her BiPAP. She was transferred to ICU for further monitoring and pulmonology was consulted for further management of hypoxia. Past Med Surg Social Fam HX - Past Medical History Medical history: CHF, COPD, diabetes, GERD, hyperlipidemia, hypertension Psychiatric history: anxiety, depression - Past Surgical History Surgical History: cholecystectomy, hip replacement Additional surgical history: 2 right and 1 left hip replcaement - Social History Smoking Status: Former smoker Packs per day: 1.5-2 PPD, Reports quitting 03/06/17 Smokeless Tobacco Status: No Alcohol use: occasionally Drug use: none - Family History Father Race: Family Member Ethnicity: Non- Living Status: Age at : 59 Cause of : Lung cancer Hx Family Cancer: Yes (Lung) Mother Race: Family Member Ethnicity: Non- Living Status: Still Living Hx Family Genitourinary Disorders: Yes (Kidney removed) Sister Race: Family Member Ethnicity: Non- Living Status: Still Living Hx Family Medical Disorders: No Grandmother Race: Family Member Ethnicity: Non- Living Status: Cause of : DM Complications Hx Family Endocrine Disorder: Yes (DM) ROS unobtainable: due to mental status (on precedex for sedation) All Systems: The remainder of the systems were reviewed and are negative Physical Examination Vital Signs: Vital Signs, Last 4 Hours Temp Pulse Resp BP Pulse Ox 11/24/17 09:00 85 18 94/55 96 11/24/17 08:51 101.5 F H 11/24/17 08:00 101.5 F H 95 17 116/64 100 11/24/17 07:00 105 22 139/59 100 11/24/17 06:00 88 19 165/76 100 General appearance: other (sedated) Eyes: nonicteric ENT: oropharynx dry Effort: mildly labored Auscultation: bilateral: clear Cardiovascular: regular rate and rhythm Gastrointestinal: normoactive bowel sounds, soft, non-tender Extremities: no cyanosis, no edema, no clubbing Musculoskeletal: other (external fixation hardware right ankle) non-focal exam, pupils equal and round, unable to assess due to mental status Results - Laboratory Findings CBC and BMP: 11/24/17 02:30 11/24/17 07:56 ABG ABG pH 7.19 pH Units (7.32-7.45) L* 11/24/17 03:34 ABG pCO2 86 mmHg (35-45) H* 11/24/17 03:34 ABG pO2 46 mmHg (85-104) L* 11/24/17 03:34 ABG O2 Saturation 68 % (95-98) L 11/24/17 03:34 Abnormal lab findings: Abnormal lab results RBC 2.50 M/mcL (3.82-4.97) L 11/24/17 02:30 Hgb 8.6 g/dL (11.5-15.4) L 11/24/17 02:30 Hct 27.6 % (35.3-44.9) L 11/24/17 02:30 MCV 110.4 fL (83.0-100.0) H 11/24/17 02:30 MCH 34.4 pg (28.0-33.3) H 11/24/17 02:30 MCHC 31.2 g/dL (31.6-35.5) L 11/24/17 02:30 Plt Count 115 K/mcL (140-400) L 11/24/17 02:30 Platelet Estimate Slight Decrease (Normal) L 11/24/17 02:30 Macrocytosis Present (Not Present) A 11/24/17 02:30 ABG pH 7.19 pH Units (7.32-7.45) L* 11/24/17 03:34 ABG pCO2 86 mmHg (35-45) H* 11/24/17 03:34 ABG pO2 46 mmHg (85-104) L* 11/24/17 03:34 ABG HCO3 33 mEq/L (21-27) H 11/24/17 03:34 ABG Total CO2 36 mEq/L (20-26) H 11/24/17 03:34 ABG O2 Saturation 68 % (95-98) L 11/24/17 03:34 Sodium 133 mEq/L (136-145) L 11/24/17 02:30 Potassium 6.0 mEq/L (3.5-5.1) H 11/24/17 07:56 Creatinine 1.41 mg/dL (0.60-1.20) H 11/24/17 02:30 Est GFR ( Amer) 46 (> 60) L 11/24/17 02:30 Est GFR (Non-Af Amer) 38 (> 60) L 11/24/17 02:30 Glucose 157 mg/dL (70-105) H 11/24/17 02:30 POC Glucose 148 mg/dL (70-99) H 06/09/18 22:14 Total Bilirubin 0.2 mg/dL (0.3-1.0) L 11/23/17 00:41 Serum Total Protein 6.3 g/dL (6.4-8.9) L 11/23/17 00:41 - Clinical Findings Intake & Output: Intake & Output 11/23/17 11/24/17 11/24/17 23:59 07:59 15:59 Intake Total 340 / 340 1200 / 1200 Balance 340 / 340 1200 / 1200 Weight 111 kg
[2017-11-24 09:32] LABS: ABG Base Excess 2 mEq/L (-2 to 3); ABG HCO3 28 mEq/L (21-27); ABG Oxygen Saturation 100 % (95-98); ABG PCO2 50 mmHg (35-45); ABG PH 7.35 pH Units (7.32-7.45); ABG PO2 174 mmHg (85-104); ABG TCO2 29 mEq/L (20-26); Blood Gas Modality avaps; Blood Gas PEEP 6 cm H2O; Blood Gas VT 450 cc
[2017-11-24] MEDS: Tiotropium 18 MCG inhalation IH SCH (10:18)
[2017-11-24] MEDS ORDERED: *HR* OxyCODONE/APAP 5/325 TABLET PO PRN (11:06)
[2017-11-24] MEDS: BuPROPion XL (24 HR) 150 MG TABLET PO SCH (11:20)
[2017-11-24] MEDS: OXYCODONE Oral CONC 10 MG/0.5 ML ORAL.SYG SL PRN (12:15)
[2017-11-24] MEDS: FentaNYL (PF) 1,000 MCG in 0.9 % Sodium Chloride 80 ML IVC SCH (13:30)
[2017-11-24] MEDS ORDERED: 0.9 % Sodium Chloride 250 ML ONE (16:13)
[2017-11-24] MEDS: MethylPREDNISolone 40 MG/ML VIAL IVP SCH ×2 (16:17→23:21)
[2017-11-25] MEDS: Albuterol 2.5 MG/3 ML NEBULIZER IH SCH ×3 (03:07→17:54)
[2017-11-25 03:33] LABS: Hematocrit 26.2 % (35.3-44.9); Hemoglobin 8.4 g/dL (11.5-15.4); Immature Granulocytes % 0.9 % (0-4); Lymphocytes # 0.5 K/mcL (0.6-4.6); Mean Corpuscular HGB Conc 32.1 g/dL (31.6-35.5); Mean Corpuscular Hemoglobin 34.1 pg (28.0-33.3); Mean Corpuscular Volume 106.5 fL (83.0-100.0); Mean Platelet Volume 10.7 fL (9.4-12.4); Monocytes # 0.2 K/mcL (0.0-1.3); Monocytes % 3.1 %; Platelet Count 111 K/mcL (140-400); Red Blood Count 2.46 M/mcL (3.82-4.97); Red Cell Distribution Width 12.2 % (11.5-14.5)
[2017-11-25 03:36] LABS: Neutrophils # 6.1 K/mcL (1.6-8.9)
[2017-11-25 03:52] LABS: BUN/Creatinine Ratio 27 (6-26); Blood Urea Nitrogen 25 mg/dL (8-23); Calcium 9.3 mg/dL (8.6-10.3); Carbon Dioxide 26 mEq/L (23-29); Chloride 102 mEq/L (98-107); Glucose 163 mg/dL (70-105); Osmolality,Calculated 290 (280-300); Potassium 5.3 mEq/L (3.5-5.1); Sodium 136 mEq/L (136-145); eGFR For African Americans > 60 (> 60); eGFR For Non-African Americans > 60 (> 60)
[2017-11-25] MEDS: *HR* Heparin 5,000 UNIT/ML VIAL SQ SCH ×3 (04:33→21:02)
[2017-11-25] MEDS: OXYCODONE Oral CONC 10 MG/0.5 ML ORAL.SYG SL PRN (04:33)
--- NOTE | 2017-11-25 08:04 | Pulmonology Progress Note ---
<NeginAydin W - Last Filed: 11/25/17 09:04> Date of Encounter: 11/25/17 Objective PUL Vital signs: Last Vital Signs Temp 98.1 F 11/25/17 07:00 Pulse 97 11/25/17 07:00 Resp 18 11/25/17 07:00 BP 152/92 11/25/17 07:00 Pulse Ox 90 11/25/17 07:00 Results - Laboratory Findings CBC and BMP: 11/25/17 03:18 11/25/17 03:18 ABG ABG pH 7.35 pH Units (7.32-7.45) D 11/24/17 09:29 ABG pCO2 50 mmHg (35-45) H D 11/24/17 09:29 ABG pO2 174 mmHg (85-104) H D 11/24/17 09:29 ABG O2 Saturation 100 % (95-98) H 11/24/17 09:29 Abnormal lab findings: Abnormal lab results RBC 2.46 M/mcL (3.82-4.97) L 11/25/17 03:18 Hgb 8.4 g/dL (11.5-15.4) L 11/25/17 03:18 Hct 26.2 % (35.3-44.9) L 11/25/17 03:18 MCV 106.5 fL (83.0-100.0) H 11/25/17 03:18 MCH 34.1 pg (28.0-33.3) H 11/25/17 03:18 Plt Count 111 K/mcL (140-400) L 11/25/17 03:18 Lymphocytes # 0.5 K/mcL (0.6-4.6) L 11/25/17 03:18 Platelet Estimate Slight Decrease (Normal) L 11/24/17 02:30 Macrocytosis Present (Not Present) A 11/24/17 02:30 ABG pCO2 50 mmHg (35-45) H D 11/24/17 09:29 ABG pO2 174 mmHg (85-104) H D 11/24/17 09:29 ABG HCO3 28 mEq/L (21-27) H 11/24/17 09:29 ABG Total CO2 29 mEq/L (20-26) H 11/24/17 09:29 ABG O2 Saturation 100 % (95-98) H 11/24/17 09:29 Potassium 5.3 mEq/L (3.5-5.1) H 11/25/17 03:18 BUN 25 mg/dL (8-23) H 11/25/17 03:18 BUN/Creatinine Ratio 27 (6-26) H 11/25/17 03:18 Glucose 163 mg/dL (70-105) H 11/25/17 03:18 POC Glucose 181 mg/dL (70-99) H 11/25/17 07:24 Total Bilirubin 0.2 mg/dL (0.3-1.0) L 11/23/17 00:41 Serum Total Protein 6.3 g/dL (6.4-8.9) L 11/23/17 00:41 - Clinical Findings Intake & Output: Intake & Output 11/24/17 11/25/17 11/25/17 23:59 07:59 15:59 Intake Total 150 / 150 Output Total 600 / 600 1205 / 1205 Balance -450 / -450 -1205 / -1205 Weight 108.4 kg Consult Discharge Plan - Plan Referrals: Dori Sutton DO [Primary Care Provider] - - Attending Attestation I examined this patient and my medical decision-making was reviewed with the Resident Physician. I agree with the documented findings, disposition and treatment plan as described except to the extent set forth below. We independently had [id number] contact with the patient Patient seen and examined at bedside Labs, radiology, chart personally reviewed. Management was reviewed during multidisciplinary critical care rounds. 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 Start IV acetaminophen we will consult pain/anesthesia for further recommendations Pulm: Acute hypoxic hypercapnic respiratory failure which is multifactorial including obesity hypoventilation syndrome coupled with use of sedatives a small component of hydrostatic pulmonary edema possible COPD with exacerbation patient was requiring noninvasive ventilation today she is more awake and able to follow commands strategy today would be BiPAP as tolerated during the day and continuously at night patient has high risk for further deterioration requiring mechanical ventilation. Cards: Blood pressure monitored and slightly elevated related to pain and anxiety FEN-GI: Would hold off on full diet at this time because of high risk of need for endotracheal intubation and concomitant need for noninvasive ventilation Renal: urine output monitored serum creatinine has improved overnight continue daily monitoring of serum creatinine and electrolytes per clinical course ID: no clear active issue continue to monitor Heme/Onc: DVT prophylaxis given H&H monitored and stable Endo: Glucose Monitored Integ/MSK: Skin Care per routine ICU Nursing Protocol to prevent ulcers; she has a recent right ankle fracture being managed by orthopedics appreciate their recommendations Lines: All lines examined without evidence of infection : Dispo: remain in ICU CODE: full <Adela Bailey - Last Filed: 11/25/17 17:34> Date of Encounter: 11/25/17 Time of Encounter: 09:10 Assessment and Plan (1) Acute on chronic respiratory acidosis Current Visit: Yes Status: Acute Improving Etiology likely multifactorial including med-induced, anxiety effect, and OHS Initial ABG: pH 7.21 / pCO2 92 / pO2 69 / HCO3 37 / O2 Sat 88% Blood gases improved with BiPAP Tolerating nasal cannula with O2 sats in 90's Plan Continue precedex drip for anxiety (bupropion and duloxetine restarted) Goal for BiPAP is 10-12 hours per day Reassess respiratory status in morning (2) COPD (chronic obstructive pulmonary disease) Current Visit: Yes Status: Chronic On continuous home oxygen 3L Doubt exacerbation Continue inhalers Duonebs PRN Plan Continue Solu-Medrol 40mg IV Q8H Qualifiers: COPD type: unspecified COPD Qualified Code(s): J44.9 - Chronic obstructive pulmonary disease, unspecified (3) Diastolic CHF Current Visit: Yes Status: Chronic 11/22/17 Echo: LVEF 60-65%, mild LV diastolic dysfunction, no evidence of pulm HTN , no significant valvular dysfunction Diuretics initially held d/t low BP's yesterday No lower extremity edema or rales on physical exam Tolerating 3L nasal cannula Plan Goal for BiPAP is 10-12 hours per day, preferably at night Qualifiers: Heart failure chronicity: chronic Qualified Code(s): I50.32 - Chronic diastolic (congestive) heart failure (4) Diabetes mellitus Current Visit: Yes Status: Chronic Well controlled since admission Recent Hgb A1c 5.6% Continue sliding scale insulin Qualifiers: Diabetes mellitus type: type 2 Diabetes mellitus retirement insulin use: with watermelon inspector use Diabetes mellitus complication status: with neurologic complications Diabetes mellitus complication detail: with polyneuropathy Qualified Code(s): E11.42 - Type 2 diabetes mellitus with diabetic polyneuropathy; Z79.4 - [facility] (current) use of insulin; Z79.4 - 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 Burnett Fentanyl drip, oxycodone sublingual for pain Difficulty controlling pain Plan Trial ofirmev for pain, if effective will place PRN order If pain control continues to be difficult, will contact anesthesia/pain management Dressing changes as recommended by podiatry Podiatry recommending Keflex and Xarelto Strict non-weight bearing RLE per podiatry Qualifiers: Encounter type: initial encounter Laterality: right Qualified Code(s): S82.851A - Displaced trimalleolar fracture of right lower leg, initial encounter for closed fracture (6) Hyperkalemia Current Visit: Yes Status: Acute Improving K 5.3 today Lasix was held d/t soft BP's yesterday Plan Resume home dose lasix Follow electrolytes on morning labs (7) Hypertension Current Visit: Yes Status: Chronic Qualifiers: Hypertension type: essential hypertension Qualified Code(s): I10 - Essential (primary) hypertension (8) DVT prophylaxis Current Visit: Yes Status: Acute Heparin 5,000 units subcutaneous Q8H Subjective Interval history: Seen and examined this morning at bedside. Pt is awake and alert. She appears uncomfortable and anxious, she is unable to provide much detail. She simply states that she doesn't feel well, and c/o ankle pain. Objective PUL Vital signs: Last Vital Signs Temp 98.1 F 11/25/17 07:00 Pulse 97 11/25/17 07:00 Resp 18 11/25/17 07:00 BP 152/92 11/25/17 07:00 Pulse Ox 90 11/25/17 07:00 General appearance: appears uncomfortable, other (anxious, mildly distressed) Eyes: nonicteric ENT: oropharynx dry Neck: supple Effort: normal Auscultation: bilateral: clear Cardiovascular: regular rate and rhythm Gastrointestinal: normoactive bowel sounds, soft, non-tender, non-distended Integumentary: normal Extremities: no cyanosis, no edema, no clubbing, pink and warm normal mental status, non-focal exam, pupils equal and round anxious Results - Laboratory Findings CBC and BMP: 11/25/17 03:18 11/25/17 03:18 ABG ABG pH 7.35 pH Units (7.32-7.45) D 11/24/17 09:29 ABG pCO2 50 mmHg (35-45) H D 11/24/17 09:29 ABG pO2 174 mmHg (85-104) H D 11/24/17 09:29 ABG O2 Saturation 100 % (95-98) H 11/24/17 09:29 Abnormal lab findings: Abnormal lab results RBC 2.46 M/mcL (3.82-4.97) L 11/25/17 03:18 Hgb 8.4 g/dL (11.5-15.4) L 11/25/17 03:18 Hct 26.2 % (35.3-44.9) L 11/25/17 03:18 MCV 106.5 fL (83.0-100.0) H 11/25/17 03:18 MCH 34.1 pg (28.0-33.3) H 11/25/17 03:18 Plt Count 111 K/mcL (140-400) L 11/25/17 03:18 Lymphocytes # 0.5 K/mcL (0.6-4.6) L 11/25/17 03:18 Platelet Estimate Slight Decrease (Normal) L 11/24/17 02:30 Macrocytosis Present (Not Present) A 11/24/17 02:30 ABG pCO2 50 mmHg (35-45) H D 11/24/17 09:29 ABG pO2 174 mmHg (85-104) H D 11/24/17 09:29 ABG HCO3 28 mEq/L (21-27) H 11/24/17 09:29 ABG Total CO2 29 mEq/L (20-26) H 11/24/17 09:29 ABG O2 Saturation 100 % (95-98) H 11/24/17 09:29 Potassium 5.3 mEq/L (3.5-5.1) H 11/25/17 03:18 BUN 25 mg/dL (8-23) H 11/25/17 03:18 BUN/Creatinine Ratio 27 (6-26) H 11/25/17 03:18 Glucose 163 mg/dL (70-105) H 11/25/17 03:18 POC Glucose 181 mg/dL (70-99) H 11/25/17 07:24 Total Bilirubin 0.2 mg/dL (0.3-1.0) L 11/23/17 00:41 Serum Total Protein 6.3 g/dL (6.4-8.9) L 11/23/17 00:41 - Clinical Findings Intake & Output: Intake & Output 11/24/17 11/25/17 11/25/17 23:59 07:59 15:59 Intake Total 150 / 150 Output Total 600 / 600 1205 / 1205 Balance -450 / -450 -1205 / -1205 Weight 108.4 kg - VTE Documentation of Mechanical Device: Intermittent pneumatic compression device
[2017-11-25] MEDS ORDERED: Acetaminophen IV 1,000 MG/100 ML INFUS..BTL IVPB ONE (08:33)
[2017-11-25] MEDS: Insulin LISPRO 300 UNITS/3 ML VIAL SQ SCH ×4 (08:37→19:07)
[2017-11-25] MEDS: Furosemide 20 MG TABLET PO SCH (08:40)
[2017-11-25] MEDS: MethylPREDNISolone 40 MG/ML VIAL IVP SCH ×3 (08:41→23:12)
[2017-11-25] MEDS: Pantoprazole 40 MG VIAL IVP SCH (08:41)
[2017-11-25] MEDS: BuPROPion XL (24 HR) 150 MG TABLET PO SCH (08:41)
[2017-11-25] MEDS: Insulin DETEMIR 100 UNIT/ML X5UNITS SQ SCH ×2 (08:57→20:06)
[2017-11-25] MEDS: Dexmedetomidine HCl 400 MCG/100 ML MLS IVC SCH ×2 (09:05→20:04)
[2017-11-25] MEDS: Tiotropium 18 MCG inhalation IH SCH (09:46)
--- NOTE | 2017-11-25 10:32 | Podiatry Progress Note ---
Date of Encounter: 11/25/17 Time of Encounter: 09:00 - Assessment and Plan (1) Acute on chronic respiratory acidosis Current Visit: Yes Status: Acute (2) Trimalleolar fracture of ankle, closed Current Visit: Yes Status: Acute s/p ORIF of right ankle fracture, ORIF of syndesmosis, Application of delta external fixator right lower extremity by Dr. Burnett on 11/23/17. WBC: 6.8 Dressing dry and intact with external fixator to RLE. Plan: Keep dressing dry and intact. Will change dressing on Saturday. Patient will require twice weekly dressing changes ( Cleanse incision sites of right ankle with saline, pat dry, apply xeroform around the pin sites and over the surgical incisions as well as 4 x 4 gauze and Kerlix). Remain strict non weight bearing. Patient currently on a Fentanyl drip and received Ofirmev for pain control. Recommend Keflex 500mg PO BID x 10 days and Xarelto 10 mg PO x 20 days. Qualifiers: Encounter type: initial encounter Laterality: right Qualified Code(s): S82.851A - Displaced trimalleolar fracture of right lower leg, initial encounter for closed fracture Subjective Interval history: Patient is s/p ORIF of right ankle fracture, ORIF of syndesmosis, Application of delta external fixator right lower extremity by Dr. Burnett on 11/23/17. Patient was transferred to the ICU on 11/23/17 after her pulse ox dropped to 60's while sleeping. Patient was started on BIPAP. Patient is lying in bed with nurse at bedside connected to a nasal cannula. Patient states her right ankle is painful and rates it at a 10 out of 10. Patient was started on a Fentanyl drip and the nurse just started Ofirmev. Patient admits to nausea. Objective - Vital Signs Vital Signs: Vital Signs Temp Pulse Resp BP Pulse Ox 11/25/17 10:00 87 20 101/91 96 11/25/17 09:43 16 98 11/25/17 09:00 83 18 127/103 95 11/25/17 08:00 95 18 159/75 95 11/25/17 07:00 98.1 F 97 18 152/92 90 11/25/17 06:00 61 17 144/67 92 11/25/17 05:00 60 20 137/69 93 11/25/17 04:30 98 F 11/25/17 04:00 78 18 129/67 99 11/25/17 03:10 16 94 11/25/17 03:00 66 17 123/70 95 11/25/17 02:00 59 17 107/60 94 11/25/17 01:02 64 20 105/57 92 11/25/17 00:12 98.1 F 11/25/17 00:02 65 18 113/57 95 11/24/17 23:00 66 16 108/54 95 11/24/17 22:00 64 20 119/64 95 11/24/17 21:03 73 17 118/57 97 11/24/17 20:00 76 16 116/65 95 11/24/17 19:06 99.2 F 84 18 124/58 94 11/24/17 18:00 91 18 135/68 97 11/24/17 17:00 91 18 122/53 98 11/24/17 16:47 99.7 F H 11/24/17 16:00 84 18 103/47 90 11/24/17 15:00 82 18 108/62 93 11/24/17 14:00 84 20 99/60 95 11/24/17 13:00 76 18 118/54 96 11/24/17 12:00 84 22 92/45 92 11/24/17 11:30 100.7 F H 11/24/17 11:00 80 20 100/69 91 Intake and Output 11/24/17 11/25/17 11/25/17 23:59 07:59 15:59 Intake Total 150 / 150 Output Total 600 / 600 1205 / 1205 Balance -450 / -450 -1205 / -1205 Intake: IV Fluids 100 / 100 PRECEDEX Premix 400 mcg In 100 100 / 100 ml @ 0.2 MCG/KG/HR 5.55 mls/hr IVC .Q18H2M JOH[facility] Rx#:[id number] Oral 50 / 50 Output: Catheter 600 / 600 1205 / 1205 Other: Weight 108.4 kg Blood Glucose* 97 181 Patient Weight 11/25/17 23:59 Weight 108.4 kg - Exam Exam: General appearance: alert awake oriented X 3. Calm and pleasant, no acute distress.. Vascular: No evidence of cyanosis, pallor or rubor, Edema graded at 1+/4, Skin Temperature warm, No calf pain with manual compression. capillary refill time is immediate to digits. Neurologic: Sensation intact with light touch to digits Postop Exam: S/P Dressing dry and intact to RLE with external fixator, no streaking. no strikethrough drainage. - Lab Result Diagrams: 11/25/17 03:18 11/25/17 03:18 Labs: Abnormal lab results RBC 2.46 M/mcL (3.82-4.97) L 11/25/17 03:18 Hgb 8.4 g/dL (11.5-15.4) L 11/25/17 03:18 Hct 26.2 % (35.3-44.9) L 11/25/17 03:18 MCV 106.5 fL (83.0-100.0) H 11/25/17 03:18 MCH 34.1 pg (28.0-33.3) H 11/25/17 03:18 Plt Count 111 K/mcL (140-400) L 11/25/17 03:18 Lymphocytes # 0.5 K/mcL (0.6-4.6) L 11/25/17 03:18 Platelet Estimate Slight Decrease (Normal) L 11/24/17 02:30 Macrocytosis Present (Not Present) A 11/24/17 02:30 ABG pCO2 50 mmHg (35-45) H D 11/24/17 09:29 ABG pO2 174 mmHg (85-104) H D 11/24/17 09:29 ABG HCO3 28 mEq/L (21-27) H 11/24/17 09:29 ABG Total CO2 29 mEq/L (20-26) H 11/24/17 09:29 ABG O2 Saturation 100 % (95-98) H 11/24/17 09:29 Potassium 5.3 mEq/L (3.5-5.1) H 11/25/17 03:18 BUN 25 mg/dL (8-23) H 11/25/17 03:18 BUN/Creatinine Ratio 27 (6-26) H 11/25/17 03:18 Glucose 163 mg/dL (70-105) H 11/25/17 03:18 POC Glucose 181 mg/dL (70-99) H 11/25/17 07:24 Total Bilirubin 0.2 mg/dL (0.3-1.0) L 11/23/17 00:41 Serum Total Protein 6.3 g/dL (6.4-8.9) L 11/23/17 00:41 - VTE Documentation of Mechanical Device: Intermittent pneumatic compression device Consult Discharge Plan - Plan Referrals: Dori Sutton DO [Primary Care Provider] -
[2017-11-25] MEDS ORDERED: Sennosides 8.6 MG TABLET PO PRN (11:03)
[2017-11-25] MEDS ORDERED: hydrALAZINE 10 MG TABLET PO PRN (11:11)
[2017-11-25] MEDS ORDERED: Acetaminophen IV 1,000 MG/100 ML INFUS..BTL IVPB PRN (12:00)
[2017-11-25] MEDS: OXYCODONE Oral CONC 10 MG/0.5 ML ORAL.SYG SL SCH ×3 (12:36→21:28)
[2017-11-25] MEDS: Fluticasone Propionate Nasal 50 MCG/SPRAY BOTTLE NS SCH (12:36)
[2017-11-25] MEDS: FentaNYL (PF) 1,000 MCG in 0.9 % Sodium Chloride 80 ML IVC SCH (20:05)
[2017-11-25] MEDS ORDERED: traZODone 50 MG TABLET PO SCH (21:00)
[2017-11-26] MEDS: OXYCODONE Oral CONC 10 MG/0.5 ML ORAL.SYG SL SCH ×3 (03:08→17:36)
[2017-11-26 03:28] LABS: Hematocrit 25.1 % (35.3-44.9); Hemoglobin 8.3 g/dL (11.5-15.4); Immature Granulocytes % 0.6 % (0-4); Lymphocytes # 0.3 K/mcL (0.6-4.6); Mean Corpuscular HGB Conc 33.1 g/dL (31.6-35.5); Mean Corpuscular Volume 102.9 fL (83.0-100.0); Mean Platelet Volume 10.7 fL (9.4-12.4); Monocytes # 0.2 K/mcL (0.0-1.3); Monocytes % 4.1 %; Neutrophils # 4.3 K/mcL (1.6-8.9); Platelet Count 139 K/mcL (140-400); Red Blood Count 2.44 M/mcL (3.82-4.97); Red Cell Distribution Width 12.3 % (11.5-14.5); Segmented Neutrophils % 88.3 %
[2017-11-26] MEDS: Albuterol 2.5 MG/3 ML NEBULIZER IH SCH ×4 (03:29→23:06)
[2017-11-26 03:45] LABS: BUN/Creatinine Ratio 39 (6-26); Blood Urea Nitrogen 32 mg/dL (8-23); Calcium 9.4 mg/dL (8.6-10.3); Carbon Dioxide 29 mEq/L (23-29); Chloride 102 mEq/L (98-107); Glucose 190 mg/dL (70-105); Osmolality,Calculated 296 (280-300); Potassium 4.4 mEq/L (3.5-5.1); Sodium 137 mEq/L (136-145); eGFR For African Americans > 60 (> 60); eGFR For Non-African Americans > 60 (> 60)
[2017-11-26] MEDS: *HR* Heparin 5,000 UNIT/ML VIAL SQ SCH ×3 (05:02→21:10)
--- NOTE | 2017-11-26 07:23 | Pulmonology Progress Note ---
<Adela Bailey - Last Filed: 11/26/17 07:22> Date of Encounter: 11/26/17 Time of Encounter: 07:23 Assessment and Plan (1) Acute on chronic respiratory acidosis Current Visit: Yes Status: Acute Improving Etiology likely multifactorial including med-induced, anxiety effect, and OHS Initial ABG: pH 7.21 / pCO2 92 / pO2 69 / HCO3 37 / O2 Sat 88% Blood gases improved with BiPAP Tolerating nasal cannula with O2 sats in 90's Plan Continue precedex drip for anxiety (bupropion and duloxetine restarted) Goal for BiPAP is 10-12 hours per day Reassess respiratory status in morning (2) COPD (chronic obstructive pulmonary disease) Current Visit: Yes Status: Chronic On continuous home oxygen 3L Doubt exacerbation Continue inhalers Duonebs PRN Plan Continue Solu-Medrol 40mg IV Q8H Qualifiers: COPD type: unspecified COPD Qualified Code(s): J44.9 - Chronic obstructive pulmonary disease, unspecified (3) Diastolic CHF Current Visit: Yes Status: Chronic 11/22/17 Echo: LVEF 60-65%, mild LV diastolic dysfunction, no evidence of pulm HTN , no significant valvular dysfunction Diuretics initially held d/t low BP's yesterday No lower extremity edema or rales on physical exam Tolerating 3L nasal cannula Plan Goal for BiPAP is 10-12 hours per day, preferably at night Qualifiers: Heart failure chronicity: chronic Qualified Code(s): I50.32 - Chronic diastolic (congestive) heart failure (4) Diabetes mellitus Current Visit: Yes Status: Chronic Well controlled since admission Recent Hgb A1c 5.6% Continue sliding scale insulin Qualifiers: Diabetes mellitus type: type 2 Diabetes mellitus chcf insulin use: with superintendent marine oil terminal use Diabetes mellitus complication status: with neurologic complications Diabetes mellitus complication detail: with polyneuropathy Qualified Code(s): E11.42 - Type 2 diabetes mellitus with diabetic polyneuropathy; Z79.4 - correction (current) use of insulin; Z79.4 - correction ( current) use of insulin; Z79.4 - correction (current) use of insulin; Z79.4 - correction (current) use of insulin (5) Trimalleolar fracture of ankle, closed Current Visit: Yes Status: Acute POD #2 s/p ORIF right ankle fracture by Dr. Burnett Fentanyl drip, oxycodone sublingual for pain Difficulty controlling pain Plan Trial ofirmev for pain, if effective will place PRN order If pain control continues to be difficult, will contact anesthesia/pain management Dressing changes as recommended by podiatry Podiatry recommending Keflex and Xarelto Strict non-weight bearing RLE per podiatry Qualifiers: Encounter type: initial encounter Laterality: right Qualified Code(s): S82.851A - Displaced trimalleolar fracture of right lower leg, initial encounter for closed fracture (6) Hyperkalemia Current Visit: Yes Status: Acute Improving K 5.3 today Lasix was held d/t soft BP's yesterday Plan Resume home dose lasix Follow electrolytes on morning labs (7) Hypertension Current Visit: Yes Status: Chronic Qualifiers: Hypertension type: essential hypertension Qualified Code(s): I10 - Essential (primary) hypertension (8) DVT prophylaxis Current Visit: Yes Status: Acute Heparin 5,000 units subcutaneous Q8H Subjective Interval history: Seen and examined this morning at bedside. Pt is awake and alert. She appears uncomfortable and anxious, she is unable to provide much detail. She simply states that she doesn't feel well, and c/o ankle pain. Objective PUL Vital signs: Last Vital Signs Temp 97.3 F L 11/25/17 23:00 Pulse 62 11/26/17 06:00 Resp 15 11/26/17 06:00 BP 136/67 11/26/17 06:00 Pulse Ox 92 11/26/17 06:00 Results - Laboratory Findings CBC and BMP: 11/26/17 03:15 11/26/17 03:15 ABG ABG pH 7.35 pH Units (7.32-7.45) D 11/24/17 09:29 ABG pCO2 50 mmHg (35-45) H D 11/24/17 09:29 ABG pO2 174 mmHg (85-104) H D 11/24/17 09:29 ABG O2 Saturation 100 % (95-98) H 11/24/17 09:29 Abnormal lab findings: Abnormal lab results RBC 2.44 M/mcL (3.82-4.97) L 11/26/17 03:15 Hgb 8.3 g/dL (11.5-15.4) L 11/26/17 03:15 Hct 25.1 % (35.3-44.9) L 11/26/17 03:15 MCV 102.9 fL (83.0-100.0) H 11/26/17 03:15 MCH 34.0 pg (28.0-33.3) H 11/26/17 03:15 Plt Count 139 K/mcL (140-400) L 11/26/17 03:15 Lymphocytes # 0.3 K/mcL (0.6-4.6) L 11/26/17 03:15 Platelet Estimate Slight Decrease (Normal) L 11/24/17 02:30 Macrocytosis Present (Not Present) A 11/24/17 02:30 ABG pCO2 50 mmHg (35-45) H D 11/24/17 09:29 ABG pO2 174 mmHg (85-104) H D 11/24/17 09:29 ABG HCO3 28 mEq/L (21-27) H 11/24/17 09:29 ABG Total CO2 29 mEq/L (20-26) H 11/24/17 09:29 ABG O2 Saturation 100 % (95-98) H 11/24/17 09:29 BUN 32 mg/dL (8-23) H 11/26/17 03:15 BUN/Creatinine Ratio 39 (6-26) H 11/26/17 03:15 Glucose 190 mg/dL (70-105) H 11/26/17 03:15 POC Glucose 140 mg/dL (70-99) H 11/25/17 18:47 Total Bilirubin 0.2 mg/dL (0.3-1.0) L 11/23/17 00:41 Serum Total Protein 6.3 g/dL (6.4-8.9) L 11/23/17 00:41 - Clinical Findings Intake & Output: Intake & Output 11/25/17 11/25/17 11/26/17 15:59 23:59 07:59 Intake Total 100 / 100 300 / 300 Output Total 1150 / 1150 2049 / 2049 Balance -1050 / -1050 -1750 / -1750 Weight 105 kg - VTE Documentation of Mechanical Device: Intermittent pneumatic compression device Consult Discharge Plan - Plan Referrals: Dori Sutton, [Primary Care Provider] - <Aydin Kam - Last Filed: 11/26/17 10:39> Date of Encounter: 11/26/17 Objective PUL Vital signs: Last Vital Signs Temp 97.3 F L 11/25/17 23:00 Pulse 75 11/26/17 07:00 Resp 16 11/26/17 07:00 BP 147/82 11/26/17 07:00 Pulse Ox 100 11/26/17 07:00 Results - Laboratory Findings CBC and BMP: 11/26/17 03:15 11/26/17 03:15 ABG ABG pH 7.35 pH Units (7.32-7.45) D 11/24/17 09:29 ABG pCO2 50 mmHg (35-45) H D 11/24/17 09:29 ABG pO2 174 mmHg (85-104) H D 11/24/17 09:29 ABG O2 Saturation 100 % (95-98) H 11/24/17 09:29 Abnormal lab findings: Abnormal lab results RBC 2.44 M/mcL (3.82-4.97) L 11/26/17 03:15 Hgb 8.3 g/dL (11.5-15.4) L 11/26/17 03:15 Hct 25.1 % (35.3-44.9) L 11/26/17 03:15 MCV 102.9 fL (83.0-100.0) H 11/26/17 03:15 MCH 34.0 pg (28.0-33.3) H 11/26/17 03:15 Plt Count 139 K/mcL (140-400) L 11/26/17 03:15 Lymphocytes # 0.3 K/mcL (0.6-4.6) L 11/26/17 03:15 Platelet Estimate Slight Decrease (Normal) L 11/24/17 02:30 Macrocytosis Present (Not Present) A 11/24/17 02:30 ABG pCO2 50 mmHg (35-45) H D 11/24/17 09:29 ABG pO2 174 mmHg (85-104) H D 11/24/17 09:29 ABG HCO3 28 mEq/L (21-27) H 11/24/17 09:29 ABG Total CO2 29 mEq/L (20-26) H 11/24/17 09:29 ABG O2 Saturation 100 % (95-98) H 11/24/17 09:29 BUN 32 mg/dL (8-23) H 11/26/17 03:15 BUN/Creatinine Ratio 39 (6-26) H 11/26/17 03:15 Glucose 190 mg/dL (70-105) H 11/26/17 03:15 POC Glucose 169 mg/dL (70-99) H 11/26/17 07:30 Total Bilirubin 0.2 mg/dL (0.3-1.0) L 11/23/17 00:41 Serum Total Protein 6.3 g/dL (6.4-8.9) L 11/23/17 00:41 - Clinical Findings Intake & Output: Intake & Output 11/25/17 11/26/17 11/26/17 23:59 07:59 15:59 Intake Total 300 / 300 Output Total 2049 / 2049 Balance -1750 / -1750 Weight 105 kg - Attending Attestation I examined this patient and my medical decision-making was reviewed with the Resident Physician. I agree with the documented findings, disposition and treatment plan as described except to the extent set forth below. We independently had [id number] contact with the patient Patient seen and examined at bedside Labs, radiology, chart personally reviewed. Management was reviewed during multidisciplinary critical care rounds. 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 Pulm: Acute on chronic hypoxic hypercapnic respiratory failure. Stable O2 on nasal cannula. Suspected OSAS cont NIV at night. as tolerated outpatient sleep study . Stop Steroids Cards: BP stable. No longer tachycardic FEN-GI: ADAT Renal: UOP and sCr measured ID: ABx s/p ORIF per Podiatry recs Heme/Onc: DVT prophylaxis given Endo: Glucose Monitored Integ/MSK: Skin Care per routine ICU Nursing Protocol to prevent ulcers. Lines: All lines examined without evidence of infection : Dispo: Stable for med tele. CODE: Stable for transfer to MED/TELE for ongoing care
[2017-11-26] MEDS: BuPROPion XL (24 HR) 150 MG TABLET PO SCH (08:05)
[2017-11-26] MEDS: Furosemide 20 MG TABLET PO SCH (08:05)
[2017-11-26] MEDS: MethylPREDNISolone 40 MG/ML VIAL IVP SCH ×2 (08:05→17:36)
[2017-11-26] MEDS: Insulin DETEMIR 100 UNIT/ML X5UNITS SQ SCH (08:06)
[2017-11-26] MEDS: Insulin LISPRO 300 UNITS/3 ML VIAL SQ SCH ×4 (08:07→21:10)
[2017-11-26] MEDS: Fluticasone Propionate Nasal 50 MCG/SPRAY BOTTLE NS SCH (08:08)
[2017-11-26] MEDS: Tiotropium 18 MCG inhalation IH SCH (09:39)
--- NOTE | 2017-11-26 11:27 | Podiatry Progress Note ---
Date of Encounter: 11/26/17 Time of Encounter: 10:30 - Assessment and Plan (1) Acute on chronic respiratory acidosis Current Visit: Yes Status: Acute (2) Trimalleolar fracture of ankle, closed Current Visit: Yes Status: Acute s/p ORIF of right ankle fracture, ORIF of syndesmosis, Application of delta external fixator right lower extremity by Dr. Burnett on 11/23/17. WBC: 4.8 Dressing dry and intact with external fixator to RLE. Plan: Keep dressing dry and intact. Will change dressing on Saturday. Patient will require twice weekly dressing changes ( Cleanse incision sites of right ankle with saline, pat dry, apply xeroform around the pin sites and over the surgical incisions as well as 4 x 4 gauze and Kerlix). Remain strict non weight bearing. Patient currently on a Fentanyl drip for pain control. Recommend Keflex 500mg PO BID x 10 days and Xarelto 10 mg PO x 20 days. Qualifiers: Encounter type: initial encounter Laterality: right Qualified Code(s): S82.851A - Displaced trimalleolar fracture of right lower leg, initial encounter for closed fracture Subjective Interval history: Patient is s/p ORIF of right ankle fracture, ORIF of syndesmosis, Application of delta external fixator right lower extremity by Dr. Burnett on 11/23/17. Patient was transferred to the ICU on 11/23/17 after her pulse ox dropped to 60's while sleeping. Patient was started on BIPAP. Patient is lying in bed with dressing dry and intact. Patient was started on a Fentanyl drip yesterday for pain control. Patient states her right ankle is painful, but states it is better today. Patient is not connected to any IV drips currently. Objective - Vital Signs Vital Signs: Vital Signs Temp Pulse Resp BP Pulse Ox 11/26/17 10:00 93 18 93/76 97 11/26/17 09:40 18 97 11/26/17 09:00 92 18 135/66 97 11/26/17 08:00 98.1 F 95 20 140/66 95 11/26/17 07:00 96 16 147/82 100 11/26/17 06:00 62 15 136/67 92 11/26/17 05:02 67 16 124/73 97 11/26/17 04:00 63 16 131/70 96 11/26/17 03:31 16 96 11/26/17 03:00 56 13 138/72 96 11/26/17 02:00 60 13 134/59 95 11/26/17 01:00 62 16 129/65 95 11/26/17 00:00 67 13 139/66 95 11/25/17 23:00 97.3 F L 74 13 136/70 92 11/25/17 22:21 10 96 11/25/17 22:00 70 20 146/75 94 11/25/17 21:00 70 16 126/63 96 11/25/17 20:00 64 18 119/69 94 11/25/17 19:00 97.5 F L 66 16 134/68 100 11/25/17 18:00 73 20 139/73 100 11/25/17 17:54 12 94 11/25/17 17:00 79 20 140/70 91 11/25/17 16:00 97.9 F 69 16 129/68 92 11/25/17 15:45 77 11/25/17 15:00 75 18 108/50 96 11/25/17 14:00 81 18 105/47 92 11/25/17 13:00 79 20 126/77 91 11/25/17 12:00 75 18 136/74 95 11/25/17 11:50 97.8 F Intake and Output 11/25/17 11/26/17 11/26/17 23:59 07:59 15:59 Intake Total 300 / 300 231 / 231 Output Total 2049 1200 / 1200 Balance -1750 / -1750 -969 / -969 Intake: IV Fluids 200 / 200 111 / 111 PRECEDEX Premix 400 mcg In 100 100 / 100 96 / 96 ml @ 0.2 MCG/KG/HR 5.55 mls/hr IVC .Q18H2M [facility] Rx#:[id number] FentaNYL (PF) 1,000 MCG In 0.9 100 / 100 15 / 15 % Sodium Chloride 80 ML @ 12.5 MCG/HR 1.25 mls/hr IVC CONT JOH[facility] Rx#:[id number] Oral 100 / 100 120 / 120 Output: Catheter 2049 1200 / 1200 Other: Meal Breakfast Percent of Meal Consumed 5% Weight 105 kg Blood Glucose* 181 169 - Exam Exam: General appearance: alert awake oriented X 3. Calm and pleasant, no acute distress.. Vascular: No evidence of cyanosis, pallor or rubor, Edema graded at 1+/4, Skin Temperature warm, No calf pain with manual compression. capillary refill time is immediate to digits. Neurologic: Sensation intact with light touch to digits Postop Exam: S/P Dressing dry and intact to RLE with external fixator, no streaking. no strikethrough drainage. - Lab Result Diagrams: 11/26/17 03:15 11/26/17 03:15 Labs: Abnormal lab results RBC 2.44 M/mcL (3.82-4.97) L 11/26/17 03:15 Hgb 8.3 g/dL (11.5-15.4) L 11/26/17 03:15 Hct 25.1 % (35.3-44.9) L 11/26/17 03:15 MCV 102.9 fL (83.0-100.0) H 11/26/17 03:15 MCH 34.0 pg (28.0-33.3) H 11/26/17 03:15 Plt Count 139 K/mcL (140-400) L 11/26/17 03:15 Lymphocytes # 0.3 K/mcL (0.6-4.6) L 11/26/17 03:15 Platelet Estimate Slight Decrease (Normal) L 11/24/17 02:30 Macrocytosis Present (Not Present) A 11/24/17 02:30 ABG pCO2 50 mmHg (35-45) H D 11/24/17 09:29 ABG pO2 174 mmHg (85-104) H D 11/24/17 09:29 ABG HCO3 28 mEq/L (21-27) H 11/24/17 09:29 ABG Total CO2 29 mEq/L (20-26) H 11/24/17 09:29 ABG O2 Saturation 100 % (95-98) H 11/24/17 09:29 BUN 32 mg/dL (8-23) H 11/26/17 03:15 BUN/Creatinine Ratio 39 (6-26) H 11/26/17 03:15 Glucose 190 mg/dL (70-105) H 11/26/17 03:15 POC Glucose 169 mg/dL (70-99) H 06/12/18 07:30 Total Bilirubin 0.2 mg/dL (0.3-1.0) L 11/23/17 00:41 Serum Total Protein 6.3 g/dL (6.4-8.9) L 11/23/17 00:41 - VTE Documentation of Mechanical Device: Intermittent pneumatic compression device Consult Discharge Plan - Plan Referrals: Dori Sutton DO [Primary Care Provider] -
[2017-11-26] MEDS ORDERED: Sennosides 8.6 MG TABLET PO PRN (18:53)
[2017-11-26] MEDS ORDERED: Ipratropium/Albuterol Neb 3 ML IH PRN (18:53)
[2017-11-26] MEDS: traZODone 50 MG TABLET PO SCH (21:09)
[2017-11-26] MEDS ORDERED: Albuterol 2.5 MG/3 ML NEBULIZER ONE (22:57)
[2017-11-26] MEDS: OXYCODONE Oral CONC 10 MG/0.5 ML ORAL.SYG SL PRN (23:37)
[2017-11-27] MEDS: *HR* Heparin 5,000 UNIT/ML VIAL SQ SCH ×2 (06:33→14:27)
[2017-11-27] MEDS: OXYCODONE Oral CONC 10 MG/0.5 ML ORAL.SYG SL PRN ×4 (06:33→19:57)
[2017-11-27] MEDS: Fluticasone Propionate Nasal 50 MCG/SPRAY BOTTLE NS SCH (08:51)
[2017-11-27] MEDS: BuPROPion XL (24 HR) 150 MG TABLET PO SCH (08:51)
[2017-11-27] MEDS: Insulin LISPRO 300 UNITS/3 ML VIAL SQ SCH ×3 (08:56→17:32)
[2017-11-27] MEDS ORDERED: Furosemide 20 MG TABLET PO SCH (09:00)
[2017-11-27 09:19] LABS: Basophils % 0.2 %; Hematocrit 28.2 % (35.3-44.9); Hemoglobin 9.4 g/dL (11.5-15.4); Immature Granulocytes % 1.4 % (0-4); Lymphocytes # 0.9 K/mcL (0.6-4.6); Lymphocytes % 16.2 %; Mean Corpuscular HGB Conc 33.3 g/dL (31.6-35.5); Mean Corpuscular Hemoglobin 34.4 pg (28.0-33.3); Mean Corpuscular Volume 103.3 fL (83.0-100.0); Mean Platelet Volume 10.2 fL (9.4-12.4); Monocytes # 0.5 K/mcL (0.0-1.3); Monocytes % 8.1 %; Neutrophils # 4.2 K/mcL (1.6-8.9); Platelet Count 189 K/mcL (140-400); Red Blood Count 2.73 M/mcL (3.82-4.97); Segmented Neutrophils % 74.1 %
[2017-11-27 09:40] LABS: BUN/Creatinine Ratio 40 (6-26); Blood Urea Nitrogen 35 mg/dL (8-23); Calcium 9.6 mg/dL (8.6-10.3); Carbon Dioxide 31 mEq/L (23-29); Chloride 100 mEq/L (98-107); Glucose 162 mg/dL (70-105); Magnesium 1.8 mg/dL (1.6-2.6); Osmolality,Calculated 304 (280-300); Potassium 4.1 mEq/L (3.5-5.1); Sodium 141 mEq/L (136-145); eGFR For African Americans > 60 (> 60); eGFR For Non-African Americans > 60 (> 60)
[2017-11-27] MEDS ORDERED: *HR* OxyCODONE/APAP 5/325 TABLET PO PRN (10:27)
[2017-11-27] MEDS: Albuterol 2.5 MG/3 ML NEBULIZER IH SCH ×2 (10:34→16:22)
[2017-11-27] MEDS: Tiotropium 18 MCG inhalation IH SCH (10:34)
[2017-11-27] MEDS: Furosemide 40 MG/4 ML VIAL IVP SCH ×2 (11:35→17:31)
--- NOTE | 2017-11-27 13:16 | Internal Med Progress Note ---
Date of Encounter: 11/27/17 Time of Encounter: 10:00 - Assessment and plan (1) Trimalleolar fracture of ankle, closed Current Visit: Yes Status: Acute Assessment and plan: s/p ORIF of right ankle fracture and ORIF of syndesmosis Application of delta external fixator right lower extremity POD # 4 Cont post op care as per Adolescent Specialist PT / OT eval DVT prophylaxis Qualifiers: Encounter type: initial encounter Laterality: right Qualified Code(s): S82.851A - Displaced trimalleolar fracture of right lower leg, initial encounter for closed fracture (2) Acute on chronic respiratory failure with hypoxia and hypercapnia Current Visit: Yes Status: Acute Assessment and plan: Due to Narcotics and COPD exacerbation Improving Will use BiPAP PRN and bed time May need over night BiPAP study before she goes back to ECF (3) COPD (chronic obstructive pulmonary disease) Current Visit: Yes Status: Chronic Assessment and plan: She did have COPD exacerbation Improving now switched to Po Steroids Duoneb + o2 Qualifiers: COPD type: COPD with acute exacerbation Qualified Code(s): J44.1 - Chronic obstructive pulmonary disease with (acute) exacerbation (4) Diabetes mellitus Current Visit: Yes Status: Chronic Assessment and plan: Cont ISS + Levemir ADA diet Qualifiers: Diabetes mellitus type: type 2 Diabetes mellitus keno terminal operator insulin use: with keno terminal operator use Diabetes mellitus complication status: with neurologic complications Diabetes mellitus complication detail: with polyneuropathy Qualified Code(s): E11.42 - Type 2 diabetes mellitus with diabetic polyneuropathy; Z79.4 - long-term (current) use of insulin; Z79.4 - termite technician ( current) use of insulin; Z79.4 - long-term (current) use of insulin; Z79.4 - termite technician (current) use of insulin (5) Hypertension Current Visit: Yes Status: Chronic Assessment and plan: Continue lisinopril Qualifiers: Hypertension type: essential hypertension Qualified Code(s): I10 - Essential (primary) hypertension (6) Diastolic CHF Current Visit: Yes Status: Chronic Assessment and plan: Hx of chronic diastolic CHF Not in exacerbation however since pt received IVF during surgery and post op care pedraza, now does look slightly volume overload will give her Iv Lasix x 2 doses Qualifiers: Heart failure chronicity: chronic Qualified Code(s): I50.32 - Chronic diastolic (congestive) heart failure (7) HLD (hyperlipidemia) Current Visit: Yes Status: Chronic Assessment and plan: Hx of chronic HLD. Lipid panel in a.m. labs. Continue pts. Lipitor. Qualifiers: Hyperlipidemia type: pure hypercholesterolemia Qualified Code(s): E78.00 - Pure hypercholesterolemia, unspecified; E78.0 - Pure hypercholesterolemia - Time Spent With Patient Total time spent is greater than 50% in coordination of care (as documented) at patient's floor/unit and/or counseling patient: - Subjective Interval history: Ms. Walsh is a 62 year old female w/PMH of CHF, COPD, diabetes controlled by oral medications and insulin, GERD, HTN, and HLD presents from the ED for Pre- Op Clearance for fx/dislocation of the right ankle. Pt was followed by Adolescent Specialist for this recent Rt ankle fx. Pt did go for ORIF of right ankle, ORIF of syndesmosis and application of delta external fixator right lower extremity done on . Later pt developed acute hypoxic and hyper capneic resp failure. So pt was transferred to ICU and placed on BiPAP for 2 days. Now she is off the BiPAP and breathing comfortably on NC 2lit o2. She was trasnefrred to tele y/d. No events over night. Pt is stil in lot of pain in the rt ankle and asking for more pain medications. She is alert, awake and O x 3. afebrile. - Constitutional Vitals: Temp Pulse Resp BP Pulse Ox 98.5 F 94 16 154/78 96 11/27/17 09:55 11/27/17 09:55 11/27/17 09:55 11/27/17 09:55 11/27/17 09:55 General appearance: Present: cooperative, A&O X 3, morbidly obese, answers questions appropriately - Head Head exam: Present: atraumatic - Neck Neck exam general surgery: Present: supple - Respiratory Respiratory exam: Present: decreased breath sounds, wheezes (mild to moderate). Absent: rales, respiratory distress, rhonchi - Cardiovascular Cardiovascular exam: Present: RRR, +S1, +S2. Absent: tachycardia - Extremities Exam Extremities exam: Present: pedal edema, tenderness (Rt ankle). Absent: calf tenderness Additional comments: Dressing placed on rt ankle.. External fixator in place too. Able to move her toes. - Back Exam Back exam: Absent: CVA tenderness (L), CVA tenderness (R) - Neurological Exam Neurological exam: Present: alert, oriented X3 - Psychiatric Psychiatric exam: Present: depressed - Skin Skin exam: Absent: rash Internal Medicine: Result - Labs CBC & Chem 7: 11/27/17 08:37 11/27/17 08:37 Labs: Short CBC 11/27/17 Range/Units 08:37 WBC 5.7 (4.3-11.1) K/mcL Hgb 9.4 L (11.5-15.4) g/dL Hct 28.2 L (35.3-44.9) % Plt Count 189 (140-400) K/mcL Neutrophils # 4.2 (1.6-8.9) K/mcL BMP 11/27/17 08:37 Sodium 141 Potassium 4.1 Chloride 100 Carbon Dioxide 31 H BUN 35 H Creatinine 0.88 Glucose 162 H Calcium 9.6 - ABG Interpretation ABG results: ABG ABG pH 7.35 pH Units (7.32-7.45) D 11/24/17 09:29 ABG pCO2 50 mmHg (35-45) H D 11/24/17 09:29 ABG pO2 174 mmHg (85-104) H D 11/24/17 09:29 ABG O2 Saturation 100 % (95-98) H 11/24/17 09:29 - Impressions Impressions Chest X-Ray 11/27/17 10:28 IMPRESSION: No acute cardiopulmonary process. D/ / Leonard Jerome MD / Leonard Jerome MD Interpreting Provider: Leonard Jerome MD - VTE Documentation of Mechanical Device: Venous foot pump, device Consult Discharge Plan - Plan Referrals: Dori Sutton DO [Primary Care Provider] -
[2017-11-27] MEDS: predniSONE 20 MG TABLET PO SCH (14:28)
[2017-11-27] MEDS ORDERED: Simethicone 80 MG TAB.CHEW PO PRN (17:40)
--- NOTE | 2017-11-27 17:53 | Podiatry Progress Note ---
Date of Encounter: 11/28/17 Time of Encounter: 17:00 - Assessment and Plan (1) Acute on chronic respiratory acidosis Current Visit: Yes Status: Acute (2) Trimalleolar fracture of ankle, closed Current Visit: Yes Status: Acute s/p ORIF of right ankle fracture, ORIF of syndesmosis, Application of delta external fixator right lower extremity by Dr. Burnett on 11/23/17. WBC: 5.7 Dressing dry and intact with external fixator to RLE. Dressing changed at bedside, healing uneventfully, no erythema, no evidence of bacterial infection. Plan: Keep dressing dry and intact. Patient will require twice weekly dressing changes (Cleanse incision sites of right ankle with saline, pat dry, apply xeroform around the pin sites and over the surgical incisions as well as 4 x 4 gauze and Kerlix). Remain strict non weight bearing. Recommend Keflex 500mg PO BID x 10 days and Xarelto 10 mg PO x 20 days. Qualifiers: Encounter type: initial encounter Laterality: right Qualified Code(s): S82.851A - Displaced trimalleolar fracture of right lower leg, initial encounter for closed fracture Subjective Interval history: Patient is s/p ORIF of right ankle fracture, ORIF of syndesmosis, Application of delta external fixator right lower extremity by Dr. Burnett on 11/23/17. Patient was transferred to the ICU on 11/23/17 after her pulse ox dropped to 60's while sleeping. Patient was started on BIPAP. Patient was transferred to [facility]. Patient is lying in bed with dressing dry and intact. Patient is no longer on a Fentanyl drip for pain control. Patient states her right ankle is painful, but states it is better today. Objective - Vital Signs Vital Signs: Vital Signs Temp Pulse Resp BP Pulse Ox 11/27/17 15:52 98.4 F 85 18 182/80 95 11/27/17 14:08 98.5 F 76 18 156/87 96 11/27/17 09:55 98.5 F 94 16 154/78 96 11/27/17 07:01 98.2 F 88 18 148/81 99 11/27/17 03:56 97.9 F 96 18 144/76 98 11/26/17 23:47 11 100 11/26/17 23:36 98.4 F 98 15 142/79 99 11/26/17 23:06 14 99 11/26/17 19:06 98.1 F 96 20 116/65 94 Intake and Output 11/27/17 11/27/17 11/27/17 07:59 15:59 23:59 Other: # Urine Diapers 1 Blood Glucose* 168 138 177 - Exam Exam: General appearance: alert awake oriented X 3. Calm and pleasant, no acute distress.. Vascular: Right: No evidence of cyanosis, pallor or rubor, Edema graded at 1+/4 , Skin Tempature warm, No calf pain with manual compression. capillary refill time is immediate to digits. Neurologic: Sensation intact with light touch to foot. . Postop Exam: S/P Sutures intact to incision lines with external fixator in tact, no signs of dehiscence, no loose hardware. No open area, no active drainage, no odor, no erythema, no streaking. Minimal edema. - Lab Result Diagrams: 11/28/17 03:40 11/28/17 03:40 Labs: Abnormal lab results RBC 2.73 M/mcL (3.82-4.97) L 11/27/17 08:37 Hgb 9.4 g/dL (11.5-15.4) L 11/27/17 08:37 Hct 28.2 % (35.3-44.9) L 11/27/17 08:37 MCV 103.3 fL (83.0-100.0) H 11/27/17 08:37 MCH 34.4 pg (28.0-33.3) H 11/27/17 08:37 Platelet Estimate Slight Decrease (Normal) L 11/24/17 02:30 Macrocytosis Present (Not Present) A 11/24/17 02:30 ABG pCO2 50 mmHg (35-45) H D 11/24/17 09:29 ABG pO2 174 mmHg (85-104) H D 11/24/17 09:29 ABG HCO3 28 mEq/L (21-27) H 11/24/17 09:29 ABG Total CO2 29 mEq/L (20-26) H 11/24/17 09:29 ABG O2 Saturation 100 % (95-98) H 11/24/17 09:29 Carbon Dioxide 31 mEq/L (23-29) H 11/27/17 08:37 BUN 35 mg/dL (8-23) H 11/27/17 08:37 BUN/Creatinine Ratio 40 (6-26) H 11/27/17 08:37 Glucose 162 mg/dL (70-105) H 11/27/17 08:37 POC Glucose 168 mg/dL (70-99) H 11/27/17 07:53 Calculated Osmolality 304 (280-300) H 11/27/17 08:37 Total Bilirubin 0.2 mg/dL (0.3-1.0) L 11/23/17 00:41 Serum Total Protein 6.3 g/dL (6.4-8.9) L 11/23/17 00:41 - VTE Documentation of Mechanical Device: Venous foot pump, device Consult Discharge Plan - Plan Referrals: Dori Sutton DO [Primary Care Provider] -
[2017-11-27] MEDS: traZODone 50 MG TABLET PO SCH (19:57)
[2017-11-28] MEDS: Insulin LISPRO 300 UNITS/3 ML VIAL SQ SCH ×5 (00:10→20:10)
[2017-11-28] MEDS: *HR* Heparin 5,000 UNIT/ML VIAL SQ SCH ×2 (00:12→06:15)
[2017-11-28] MEDS: OXYCODONE Oral CONC 10 MG/0.5 ML ORAL.SYG SL PRN ×5 (00:14→20:08)
[2017-11-28] MEDS: Albuterol 2.5 MG/3 ML NEBULIZER IH SCH ×3 (02:29→16:12)
[2017-11-28 04:01] LABS: Basophils % 0.2 %; Eosinophils % 0.2 %; Hematocrit 29.7 % (35.3-44.9); Hemoglobin 9.8 g/dL (11.5-15.4); Immature Granulocytes % 2.5 % (0-4); Lymphocytes # 1.2 K/mcL (0.6-4.6); Lymphocytes % 25.9 %; Mean Corpuscular Volume 103.1 fL (83.0-100.0); Mean Platelet Volume 10.1 fL (9.4-12.4); Monocytes # 0.5 K/mcL (0.0-1.3); Monocytes % 11.3 %; Neutrophils # 2.9 K/mcL (1.6-8.9); Nucleated Red Blood Cells 0.6 /100 WBC (0); Platelet Count 169 K/mcL (140-400); Red Blood Count 2.88 M/mcL (3.82-4.97); Red Cell Distribution Width 12.6 % (11.5-14.5); Segmented Neutrophils % 59.9 %
[2017-11-28 04:19] LABS: BUN/Creatinine Ratio 38 (6-26); Blood Urea Nitrogen 36 mg/dL (8-23); Calcium 9.4 mg/dL (8.6-10.3); Carbon Dioxide 36 mEq/L (23-29); Chloride 95 mEq/L (98-107); Glucose 173 mg/dL (70-105); Magnesium 1.6 mg/dL (1.6-2.6); Osmolality,Calculated 304 (280-300); Potassium 3.5 mEq/L (3.5-5.1); Sodium 141 mEq/L (136-145); eGFR For African Americans > 60 (> 60); eGFR For Non-African Americans 59 (> 60)
[2017-11-28] MEDS: BuPROPion XL (24 HR) 150 MG TABLET PO SCH (08:09)
[2017-11-28] MEDS: Furosemide 40 MG/4 ML VIAL IVP SCH ×2 (08:11→17:09)
[2017-11-28] MEDS: predniSONE 20 MG TABLET PO SCH (08:11)
[2017-11-28] MEDS: Fluticasone Propionate Nasal 50 MCG/SPRAY BOTTLE NS SCH (08:16)
[2017-11-28] MEDS: Acetaminophen 325 MG TABLET PO PRN ×2 (09:43→17:08)
[2017-11-28] MEDS: Tiotropium 18 MCG inhalation IH SCH (11:23)
[2017-11-28] MEDS ORDERED: *HR* LORazepam 0.5 MG TABLET PO PRN (13:10)
--- NOTE | 2017-11-28 13:13 | Internal Med Progress Note ---
Date of Encounter: 11/28/17 Time of Encounter: 08:00 - Assessment and plan (1) Trimalleolar fracture of ankle, closed Current Visit: Yes Status: Acute Assessment and plan: s/p ORIF of right ankle fracture and ORIF of syndesmosis Application of delta external fixator right lower extremity POD # 5 Cont post op care as per Security Sme Security Sme recommend PO Abx Keflex for 10 days and Xarelto 10mg for DVT prophylaxis PT / OT eval DVT prophylaxis Qualifiers: Encounter type: initial encounter Laterality: right Qualified Code(s): S82.851A - Displaced trimalleolar fracture of right lower leg, initial encounter for closed fracture (2) Acute on chronic respiratory failure with hypoxia and hypercapnia Current Visit: Yes Status: Acute Assessment and plan: Due to Narcotics and COPD exacerbation Improving Will use BiPAP PRN and bed time Since pt has anxiety deb give her Ativan before BiPAP use also will try different mask tonight May need over night BiPAP study before she goes back to ECF (3) COPD (chronic obstructive pulmonary disease) Current Visit: Yes Status: Chronic Assessment and plan: She did have COPD exacerbation Improving now switched to Po Steroids Duoneb + o2 Qualifiers: COPD type: COPD with acute exacerbation Qualified Code(s): J44.1 - Chronic obstructive pulmonary disease with (acute) exacerbation (4) Diabetes mellitus Current Visit: Yes Status: Chronic Assessment and plan: Cont ISS + Levemir ADA diet Qualifiers: Diabetes mellitus type: type 2 Diabetes mellitus ferry terminal agent insulin use: with ferry terminal agent use Diabetes mellitus complication status: with neurologic complications Diabetes mellitus complication detail: with polyneuropathy Qualified Code(s): E11.42 - Type 2 diabetes mellitus with diabetic polyneuropathy; Z79.4 - detention (current) use of insulin; Z79.4 - detention ( current) use of insulin; Z79.4 - detention (current) use of insulin; Z79.4 - detention (current) use of insulin (5) Hypertension Current Visit: Yes Status: Chronic Assessment and plan: Continue lisinopril Qualifiers: Hypertension type: essential hypertension Qualified Code(s): I10 - Essential (primary) hypertension (6) Diastolic CHF Current Visit: Yes Status: Chronic Assessment and plan: Hx of chronic diastolic CHF Not in exacerbation however since pt received IVF during surgery and post op care pedraza, now does look slightly volume overload will give her Iv Lasix x 2 doses Qualifiers: Heart failure chronicity: chronic Qualified Code(s): I50.32 - Chronic diastolic (congestive) heart failure (7) HLD (hyperlipidemia) Current Visit: Yes Status: Chronic Assessment and plan: Continue pts Lipitor Qualifiers: Hyperlipidemia type: pure hypercholesterolemia Qualified Code(s): E78.00 - Pure hypercholesterolemia, unspecified; E78.0 - Pure hypercholesterolemia - Time Spent With Patient Total time spent is greater than 50% in coordination of care (as documented) at patient's floor/unit and/or counseling patient: - Subjective Interval history: Ms. Walsh is a 62 year old female w/PMH of CHF, COPD, diabetes controlled by oral medications and insulin, GERD, HTN, and HLD presents from the ED for Pre- Op Clearance for fx/dislocation of the right ankle. Pt was followed by Security Sme for this recent Rt ankle fx. Pt did go for ORIF of right ankle, ORIF of syndesmosis and application of delta external fixator right lower extremity done on . Later pt developed acute hypoxic and hyper capneic resp failure. So pt was transferred to ICU and placed on BiPAP for 2 days. Now she is off the BiPAP and breathing comfortably on NC 2lit o2. She was transferred to tele y/d. No events over night. Pt is stil in lot of pain in the rt ankle and asking for more pain medications. She is alert, awake and O x 3. afebrile. Pt not wearing BiPAP at night since she feels clustered with it. Denied any CP. - Constitutional Vitals: Temp Pulse Resp BP Pulse Ox 98.5 F 87 17 148/87 98 11/28/17 10:21 11/28/17 10:21 11/28/17 11:24 11/28/17 10:21 11/28/17 11:24 General appearance: Present: cooperative, A&O X 3, morbidly obese, answers questions appropriately - Head Head exam: Present: atraumatic, normal inspection - Neck Neck exam general surgery: Present: supple - Respiratory Respiratory exam: Present: decreased breath sounds, wheezes (mild to moderate). Absent: rales, respiratory distress, rhonchi - Cardiovascular Cardiovascular exam: Present: RRR, +S1, +S2. Absent: tachycardia - GI/Abdominal GI/Abdominal exam: Present: normal bowel sounds, soft. Absent: rebound, rigid, tenderness - Extremities Exam Extremities exam: Present: tenderness. Absent: calf tenderness, pedal edema Additional comments: dressing is on with external fixator on Rt Ankle - Neurological Exam Neurological exam: Present: alert, oriented X3 - Psychiatric Psychiatric exam: Present: normal affect, normal mood - Skin Skin exam: Absent: rash Internal Medicine: Result - Labs CBC & Chem 7: 11/28/17 03:40 11/28/17 03:40 Labs: Short CBC 11/28/17 Range/Units 03:40 WBC 4.8 (4.3-11.1) K/mcL Hgb 9.8 L (11.5-15.4) g/dL Hct 29.7 L (35.3-44.9) % Plt Count 169 (140-400) K/mcL Neutrophils # 2.9 (1.6-8.9) K/mcL BMP 11/28/17 03:40 Sodium 141 Potassium 3.5 Chloride 95 L Carbon Dioxide 36 H BUN 36 H Creatinine 0.96 Glucose 173 H Calcium 9.4 - ABG Interpretation ABG results: ABG ABG pH 7.35 pH Units (7.32-7.45) D 11/24/17 09:29 ABG pCO2 50 mmHg (35-45) H D 11/24/17 09:29 ABG pO2 174 mmHg (85-104) H D 11/24/17 09:29 ABG O2 Saturation 100 % (95-98) H 11/24/17 09:29 - VTE Documentation of Mechanical Device: Venous foot pump, device Consult Discharge Plan - Plan Referrals: Dori Sutton DO [Primary Care Provider] -
[2017-11-28] MEDS: cephALEXin 500 MG CAPSULE PO SCH ×2 (15:14→20:08)
[2017-11-28] MEDS: traZODone 50 MG TABLET PO SCH (20:09)
[2017-11-29] MEDS: Albuterol 2.5 MG/3 ML NEBULIZER IH SCH ×3 (03:22→16:15)
[2017-11-29] MEDS: OXYCODONE Oral CONC 10 MG/0.5 ML ORAL.SYG SL PRN ×5 (05:05→21:34)
[2017-11-29] MEDS: *HR* Rivaroxaban 10 MG TABLET PO SCH (05:06)
[2017-11-29] MEDS: Acetaminophen 325 MG TABLET PO PRN ×2 (06:24→23:15)
[2017-11-29] MEDS: cephALEXin 500 MG CAPSULE PO SCH ×2 (09:01→20:35)
[2017-11-29] MEDS: predniSONE 20 MG TABLET PO SCH (09:01)
[2017-11-29] MEDS: Fluticasone Propionate Nasal 50 MCG/SPRAY BOTTLE NS SCH (09:01)
[2017-11-29] MEDS: BuPROPion XL (24 HR) 150 MG TABLET PO SCH (09:01)
[2017-11-29] MEDS: Furosemide 40 MG/4 ML VIAL IVP SCH (09:02)
[2017-11-29] MEDS: Insulin LISPRO 300 UNITS/3 ML VIAL SQ SCH ×4 (09:02→20:38)
[2017-11-29] MEDS: Tiotropium 18 MCG inhalation IH SCH (11:01)
--- NOTE | 2017-11-29 16:26 | Internal Med Progress Note ---
Date of Encounter: 11/29/17 Time of Encounter: 13:20 - Assessment and plan (1) Trimalleolar fracture of ankle, closed Current Visit: Yes Status: Acute Assessment and plan: s/p ORIF of right ankle fracture and ORIF of syndesmosis Application of delta external fixator right lower extremity POD # 6 Cont post op care as per Gripper Attacher Gripper Attacher recommend PO Abx Keflex for 10 days and Xarelto 10mg for DVT prophylaxis PT / OT eval DVT prophylaxis Qualifiers: Encounter type: initial encounter Laterality: right Qualified Code(s): S82.851A - Displaced trimalleolar fracture of right lower leg, initial encounter for closed fracture (2) Acute on chronic respiratory failure with hypoxia and hypercapnia Current Visit: Yes Status: Acute Assessment and plan: Due to Narcotics and COPD exacerbation Improving Will use BiPAP PRN and bed time Since pt has anxiety deb give her Ativan before BiPAP use also will try different mask tonight May need over night BiPAP study before she goes back to ECF (3) COPD (chronic obstructive pulmonary disease) Current Visit: Yes Status: Chronic Assessment and plan: She did have COPD exacerbation Improving now switched to Po Steroids Duoneb + o2 Qualifiers: COPD type: COPD with acute exacerbation Qualified Code(s): J44.1 - Chronic obstructive pulmonary disease with (acute) exacerbation (4) Diabetes mellitus Current Visit: Yes Status: Chronic Assessment and plan: Cont ISS + Levemir ADA diet Qualifiers: Diabetes mellitus type: type 2 Diabetes mellitus remote computer terminal operator insulin use: with remote computer terminal operator use Diabetes mellitus complication status: with neurologic complications Diabetes mellitus complication detail: with polyneuropathy Qualified Code(s): E11.42 - Type 2 diabetes mellitus with diabetic polyneuropathy; Z79.4 - residential (current) use of insulin; Z79.4 - residential ( current) use of insulin; Z79.4 - terminal press operator (current) use of insulin; Z79.4 - residential (current) use of insulin (5) Hypertension Current Visit: Yes Status: Chronic Assessment and plan: Continue lisinopril Qualifiers: Hypertension type: essential hypertension Qualified Code(s): I10 - Essential (primary) hypertension (6) Diastolic CHF Current Visit: Yes Status: Chronic Assessment and plan: Hx of chronic diastolic CHF Not in exacerbation however since pt received IVF during surgery and post op care pedraza, now does look slightly volume overload switched to PO Lasix Qualifiers: Heart failure chronicity: chronic Qualified Code(s): I50.32 - Chronic diastolic (congestive) heart failure (7) HLD (hyperlipidemia) Current Visit: Yes Status: Chronic Assessment and plan: Continue pts Lipitor Qualifiers: Hyperlipidemia type: pure hypercholesterolemia Qualified Code(s): E78.00 - Pure hypercholesterolemia, unspecified; E78.0 - Pure hypercholesterolemia - Time Spent With Patient Total time spent is greater than 50% in coordination of care (as documented) at patient's floor/unit and/or counseling patient: - Subjective Interval history: Ms. Walsh is a 62 year old female w/PMH of CHF, COPD, diabetes controlled by oral medications and insulin, GERD, HTN, and HLD presents from the ED for Pre- Op Clearance for fx/dislocation of the right ankle. Pt was followed by Gripper Attacher for this recent Rt ankle fx. Pt did go for ORIF of right ankle, ORIF of syndesmosis and application of delta external fixator right lower extremity done on . Later pt developed acute hypoxic and hyper capneic resp failure. So pt was transferred to ICU and placed on BiPAP for 2 days. Now she is off the BiPAP and breathing comfortably on NC 2lit o2. She was transferred to tele. No events over night. Her pain is better today. She is alert, awake and O x 3. afebrile. Pt is still not wearing BiPAP at night since she feels clustered with it. Denied any CP. - Constitutional Vitals: Temp Pulse Resp BP Pulse Ox 98.6 F 93 18 105/67 96 11/29/17 16:09 11/29/17 16:09 11/29/17 16:09 11/29/17 16:09 11/29/17 16:09 General appearance: Present: cooperative, A&O X 3, morbidly obese, answers questions appropriately - Head Head exam: Present: atraumatic, normal inspection - Neck Neck exam general surgery: Present: supple - Respiratory Respiratory exam: Present: decreased breath sounds, rales, wheezes. Absent: respiratory distress, rhonchi - Cardiovascular Cardiovascular exam: Present: RRR, +S1, +S2. Absent: tachycardia - GI/Abdominal GI/Abdominal exam: Present: normal bowel sounds, soft. Absent: rebound, rigid, tenderness - Extremities Exam Extremities exam: Present: pedal edema, tenderness. Absent: calf tenderness Additional comments: Dressing placed on Rt leg.. External fixator + - Back Exam Back exam: Absent: CVA tenderness (L), CVA tenderness (R) - Neurological Exam Neurological exam: Present: alert, oriented X3 - Psychiatric Psychiatric exam: Present: normal affect, normal mood Internal Medicine: Result - Labs CBC & Chem 7: 11/28/17 03:40 11/28/17 03:40 - ABG Interpretation ABG results: ABG ABG pH 7.35 pH Units (7.32-7.45) D 11/24/17 09:29 ABG pCO2 50 mmHg (35-45) H D 11/24/17 09:29 ABG pO2 174 mmHg (85-104) H D 11/24/17 09:29 ABG O2 Saturation 100 % (95-98) H 11/24/17 09:29 - VTE Documentation of Mechanical Device: Venous foot pump, device Consult Discharge Plan - Plan Referrals: Dori Sutton DO [Primary Care Provider] -
[2017-11-29] MEDS: FentaNYL (PF) 1,000 MCG in 0.9 % Sodium Chloride 80 ML IVC SCH (19:55)
[2017-11-29] MEDS: traZODone 50 MG TABLET PO SCH (20:35)
[2017-11-30] MEDS: OXYCODONE Oral CONC 10 MG/0.5 ML ORAL.SYG SL PRN ×6 (01:36→22:05)
[2017-11-30] MEDS: Albuterol 2.5 MG/3 ML NEBULIZER IH SCH (03:55)
[2017-11-30] MEDS: *HR* Rivaroxaban 10 MG TABLET PO SCH (06:03)
[2017-11-30] MEDS: cephALEXin 500 MG CAPSULE PO SCH ×2 (08:12→20:45)
[2017-11-30] MEDS: BuPROPion XL (24 HR) 150 MG TABLET PO SCH (08:13)
[2017-11-30] MEDS: predniSONE 20 MG TABLET PO SCH (08:14)
[2017-11-30] MEDS: Furosemide 40 MG TABLET PO SCH (08:14)
[2017-11-30] MEDS: Fluticasone Propionate Nasal 50 MCG/SPRAY BOTTLE NS SCH (08:14)
[2017-11-30] MEDS: Insulin LISPRO 300 UNITS/3 ML VIAL SQ SCH ×4 (08:14→22:04)
[2017-11-30] MEDS: Acetaminophen 325 MG TABLET PO PRN (08:16)
[2017-11-30] MEDS: Tiotropium 18 MCG inhalation IH SCH (08:16)
--- NOTE | 2017-11-30 12:32 | Internal Med Progress Note ---
Date of Encounter: 11/30/17 Time of Encounter: 12:32 - Assessment and plan (1) Trimalleolar fracture of ankle, closed Current Visit: Yes Status: Acute Assessment and plan: s/p ORIF of right ankle fracture and ORIF of syndesmosis Application of delta external fixator right lower extremity POD # 7 Cont post op care as per Leak Patcher Leak Patcher recommend PO Abx Keflex for 10 days and Xarelto 10mg for DVT prophylaxis PT / OT eval DVT prophylaxis Possible d/c back to ECF in AM Qualifiers: Encounter type: initial encounter Laterality: right Qualified Code(s): S82.851A - Displaced trimalleolar fracture of right lower leg, initial encounter for closed fracture (2) Acute on chronic respiratory failure with hypoxia and hypercapnia Current Visit: Yes Status: Acute Assessment and plan: Due to Narcotics and COPD exacerbation Improving Will use BiPAP PRN and bed time Since pt has anxiety deb give her Ativan before BiPAP use also will try different mask tonight Will send her back to ECF with BiPAP (3) COPD (chronic obstructive pulmonary disease) Current Visit: Yes Status: Chronic Assessment and plan: She did have COPD exacerbation Improving now switched to Po Steroids Duoneb + o2 Qualifiers: COPD type: COPD with acute exacerbation Qualified Code(s): J44.1 - Chronic obstructive pulmonary disease with (acute) exacerbation (4) Diabetes mellitus Current Visit: Yes Status: Chronic Assessment and plan: Cont ISS + Levemir ADA diet Qualifiers: Diabetes mellitus type: type 2 Diabetes mellitus termite technician insulin use: with termite technician use Diabetes mellitus complication status: with neurologic complications Diabetes mellitus complication detail: with polyneuropathy Qualified Code(s): E11.42 - Type 2 diabetes mellitus with diabetic polyneuropathy; Z79.4 - terminologist (current) use of insulin; Z79.4 - [facility] ( current) use of insulin; Z79.4 - terminologist (current) use of insulin; Z79.4 - terminologist (current) use of insulin (5) Hypertension Current Visit: Yes Status: Chronic Assessment and plan: Continue lisinopril Qualifiers: Hypertension type: essential hypertension Qualified Code(s): I10 - Essential (primary) hypertension (6) Diastolic CHF Current Visit: Yes Status: Chronic Assessment and plan: Hx of chronic diastolic CHF Not in exacerbation however since pt received IVF during surgery and post op care pedraza, now does look slightly volume overload switched to PO Lasix Qualifiers: Heart failure chronicity: chronic Qualified Code(s): I50.32 - Chronic diastolic (congestive) heart failure (7) HLD (hyperlipidemia) Current Visit: Yes Status: Chronic Assessment and plan: Continue pts Lipitor Qualifiers: Hyperlipidemia type: pure hypercholesterolemia Qualified Code(s): E78.00 - Pure hypercholesterolemia, unspecified; E78.0 - Pure hypercholesterolemia - Time Spent With Patient Total time spent is greater than 50% in coordination of care (as documented) at patient's floor/unit and/or counseling patient: - Subjective Interval history: Ms. Walsh is a 62 year old female w/PMH of CHF, COPD, diabetes controlled by oral medications and insulin, GERD, HTN, and HLD presents from the ED for Pre- Op Clearance for fx/dislocation of the right ankle. Pt was followed by Leak Patcher for this recent Rt ankle fx. Pt did go for ORIF of right ankle, ORIF of syndesmosis and application of delta external fixator right lower extremity done on . Later pt developed acute hypoxic and hyper capneic resp failure. So pt was transferred to ICU and placed on BiPAP for 2 days. Now she is off the BiPAP and breathing comfortably on NC 2lit o2. She was transferred to tele. No events over night. Still c/o more pain in Rt ankle. She is alert, awake and O x 3. afebrile. Pt is still not wearing BiPAP at night since she feels clustered with it. Denied any CP. - Constitutional Vitals: Temp Pulse Resp BP Pulse Ox 97.9 F 88 18 112/77 98 11/30/17 12:03 11/30/17 12:03 11/30/17 12:03 11/30/17 12:03 11/30/17 12:03 General appearance: Present: cooperative, A&O X 3, morbidly obese, answers questions appropriately - Head Head exam: Present: atraumatic, normal inspection - Neck Neck exam general surgery: Present: supple - Respiratory Respiratory exam: Present: decreased breath sounds. Absent: rales, respiratory distress, rhonchi, wheezes - Cardiovascular Cardiovascular exam: Present: RRR, +S1, +S2. Absent: tachycardia - GI/Abdominal GI/Abdominal exam: Present: normal bowel sounds, soft. Absent: rebound, rigid, tenderness - Extremities Exam Extremities exam: Present: tenderness (Rt ankle). Absent: calf tenderness, pedal edema Additional comments: Dressing placed on Rt ankle.. External fixator + - Back Exam Back exam: Absent: CVA tenderness (L), CVA tenderness (R) - Neurological Exam Neurological exam: Present: alert, oriented X3 - Psychiatric Psychiatric exam: Present: normal affect, normal mood - Skin Skin exam: Absent: rash Internal Medicine: Result - Labs CBC & Chem 7: 11/28/17 03:40 11/28/17 03:40 - ABG Interpretation ABG results: ABG ABG pH 7.35 pH Units (7.32-7.45) D 11/24/17 09:29 ABG pCO2 50 mmHg (35-45) H D 11/24/17 09:29 ABG pO2 174 mmHg (85-104) H D 11/24/17 09:29 ABG O2 Saturation 100 % (95-98) H 11/24/17 09:29 - VTE Documentation of Mechanical Device: Venous foot pump, device Consult Discharge Plan - Plan Referrals: Dori Sutton DO [Primary Care Provider] -
[2017-11-30] MEDS: Sennosides/Docusate Sodium TABLET PO SCH ×2 (13:02→20:44)
[2017-11-30] MEDS: traZODone 50 MG TABLET PO SCH (20:44)
[2017-12-01] MEDS: OXYCODONE Oral CONC 10 MG/0.5 ML ORAL.SYG SL PRN ×3 (02:02→10:33)
[2017-12-01] MEDS: *HR* Rivaroxaban 10 MG TABLET PO SCH (05:48)
[2017-12-01] MEDS: Tiotropium 18 MCG inhalation IH SCH (07:54)
[2017-12-01] MEDS: Insulin LISPRO 300 UNITS/3 ML VIAL SQ SCH ×2 (08:31→12:02)
[2017-12-01] MEDS: cephALEXin 500 MG CAPSULE PO SCH (08:32)
[2017-12-01] MEDS: Furosemide 40 MG TABLET PO SCH (08:32)
[2017-12-01] MEDS: predniSONE 20 MG TABLET PO SCH (08:32)
[2017-12-01] MEDS: Fluticasone Propionate Nasal 50 MCG/SPRAY BOTTLE NS SCH (08:32)
[2017-12-01] MEDS: BuPROPion XL (24 HR) 150 MG TABLET PO SCH (08:32)
[2017-12-01] MEDS: Sennosides/Docusate Sodium TABLET PO SCH (08:32)
--- NOTE | 2017-12-01 09:39 | Discharge Summary ---
- NOTES TO OUTPATIENT PROVIDER Notes to Outpatient Provider: f/u with Banking Attorney Dr. Burnett in one week. Please continue post op wound care instructions as per Dr. Burnett orders. Pt would get benefit with BiPAP due to her morbid obesity, COPD and chronic hypercapneic resp failure.. ( Howvever pt refused to wear BiPAP here , as well as at retirement ). Cont Abx Keflex for 7 more days. Cont Xarelto 10mg PO daily x 17 more days for DVT prophylaxis Date of Encounter: 12/01/17 Time of Encounter: 09:37 - Discharge Diagnosis (1) Trimalleolar fracture of ankle, closed Priority: Primary Status: Acute Qualifiers: Encounter type: initial encounter Laterality: right Qualified Code(s): S82.851A - Displaced trimalleolar fracture of right lower leg, initial encounter for closed fracture (2) Acute on chronic respiratory failure with hypoxia and hypercapnia Priority: Primary Status: Acute (3) COPD (chronic obstructive pulmonary disease) Priority: Secondary Status: Chronic Qualifiers: COPD type: COPD with acute exacerbation Qualified Code(s): J44.1 - Chronic obstructive pulmonary disease with (acute) exacerbation (4) Diabetes mellitus Priority: Secondary Status: Chronic Qualifiers: Diabetes mellitus type: type 2 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 use Diabetes mellitus complication status: with neurologic complications Diabetes mellitus complication detail: with polyneuropathy Qualified Code(s): E11.42 - Type 2 diabetes mellitus with diabetic polyneuropathy; Z79.4 - remote computer terminal 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 (current) use of insulin; Z79.4 - senior care ( current) use of insulin; Z79.4 - senior care (current) use of insulin; Z79.4 - senior care (current) use of insulin (5) Hypertension Priority: Secondary Status: Chronic Qualifiers: Hypertension type: essential hypertension Qualified Code(s): I10 - Essential (primary) hypertension (6) Diastolic CHF Priority: Secondary Status: Chronic Qualifiers: Heart failure chronicity: chronic Qualified Code(s): I50.32 - Chronic diastolic (congestive) heart failure (7) HLD (hyperlipidemia) Priority: Secondary Status: Chronic Qualifiers: Hyperlipidemia type: pure hypercholesterolemia Qualified Code(s): E78.00 - Pure hypercholesterolemia, unspecified; E78.0 - Pure hypercholesterolemia Hospital course: Ms. Walsh is a 62 year old female w/PMH of CHF, COPD, diabetes controlled by oral medications and insulin, GERD, HTN, and HLD presents from the ED for Pre- Op Clearance for fx/dislocation of the right ankle. Pt was followed by Banking Attorney for this recent Rt ankle fx. Pt did go for ORIF of right ankle, ORIF of syndesmosis and application of delta external fixator right lower extremity done on . Later pt developed acute hypoxic and hyper capneic resp failure. So pt was transferred to ICU and placed on BiPAP for 2 days. Now she is off the BiPAP and breathing comfortably on NC 2lit o2. She was transferred to tele. Pt has been doing well here. She refused to wear BiPAP even with anti anxiety meds and different mask. She does not want to use BiPAP at [facility] too. Pt does understand the risks of it with possible respiratory failure. Podiatirt recommend 10 days PO abx Keflex and 20 days of anti coag with Xarelto for DVT prophylaxis. - Time Spent with Patient Total time spent providing and/or coordinating discharge services: Greater than 30 minutes (Spent 45 minutes on this patient's discharge summary due to complex medical problems and patient needed a lot of education regarding discharge instructions) - Discharge Medications Prescriptions: OxyCODONE Immed Rel [Roxicodone 10 MG] 10 mg PO Q6H PRN 5 Days #15 tab PRN Reason: Pain Home Medications: Acarbose [Precose] 50 mg PO TID 06/20/17 [History] Albuterol Neb [Proventil Neb] 1 vial IH TID 06/20/17 [History] Albuterol Sulfate [Ventolin Hfa] 2 puff IH Q6H PRN 06/20/17 [History] Aspirin [Lo-Dose Aspirin EC] 81 mg PO DAILY 06/20/17 [History] Atorvastatin [Lipitor] 40 mg PO HS 06/20/17 [History] BuPROPion XL (24 HR) [Wellbutrin Xl] 300 mg PO QAM 06/20/17 [History] Duloxetine HCl [Cymbalta] 60 mg PO QAM 06/20/17 [History] Ergocalciferol (VITAMIN D2) [Vitamin D2] 50,000 unit PO QWEEK 06/20/17 [History] Fluticasone Propionate Nasal [Flonase] 1 spr NS DAILY 06/20/17 [History] Gabapentin [Neurontin] 600 mg PO TID 06/20/17 [History] Lisinopril [Zestril] 10 mg PO DAILY 06/20/17 [History] Magnesium Oxide [Magnesium] 400 mg PO DAILY 06/20/17 [History] Omeprazole [PriLOSEC] 20 mg PO DAILY 06/20/17 [History] Vit #76/Iron,Carb/FA [Pnv 29-1 Tablet] 1 tab PO DAILY 06/20/17 [History ] Tiotropium [Spiriva] 18 mcg IH DAILY 06/20/17 [History] Trazodone HCl 100 mg PO HS 06/20/17 [History] hydrOXYzine pamoate [HydrOXYzine Pamoate] 25 mg PO TID PRN 06/20/17 [History] metFORMIN [Glucophage] 500 mg PO BID 06/20/17 [History] Cyanocobalamin (B-12) [Vitamin B12] 1,000 mcg PO DAILY #30 tablet 06/22/17 [Rx] Acetaminophen [Extra Strength Non-Aspirin] 1,000 mg PO Q6H PRN 11/22/17 [History ] Albuterol Sulfate [Ventolin Hfa] 2 puff IH Q6H PRN 11/22/17 [History] Insulin DETEMIR [Levemir] 26 unit SQ HS 11/22/17 [History] Insulin DETEMIR [Levemir] 28 unit SQ QAM 11/22/17 [History] Insulin Regular, Human [Novolin R] 0 - 12 unit SQ TID PRN 11/22/17 [History] Potassium Chloride [K-Tab ER] 40 meq PO QAM 11/22/17 [History] Furosemide [Lasix] 40 mg PO DAILY tablet 12/01/17 [Rx] OxyCODONE Immed Rel [Roxicodone 10 MG] 10 mg PO Q6H PRN 5 Days #15 tab 12/01/17 [Rx] Polyethylene Glycol 3350 [MiraLAX] 17 gm PO DAILY powd.pack 12/01/17 [Rx] Rivaroxaban [Xarelto] 10 mg PO 0600 #17 tablet 12/01/17 [Rx] Sennosides/Docusate Sodium [Senna Plus] 1 each PO BID PRN tablet 12/01/17 [Rx] cephALEXin [Keflex] 500 mg PO BID #14 capsule 12/01/17 [Rx] predniSONE [PredniSONE] 40 mg PO DAILY #10 tablet 12/01/17 [Rx] Allergies/Adverse Reactions: 3 Allergy/AdvReac Type Severity Reaction Status Date / Time No Known Drug Allergies Allergy none Verified 06/21/17 19:26 Date of admission: 11/26/17 13:30 Primary care physician: Dori Sutton DO Consults: 11/27/17 10:21 Consult to Physical Therapy [CONS] Routine Comment: Evaluate, develop and implement POC Reason for Consult: eval and treat Does patient have active BEDREST order?: No Is patient medically & hemodynamically stable?: Yes Patient assessed for mobility or mobilized this visit?: Yes - Constitutional Vitals: Temp Pulse Resp BP Pulse Ox 98.4 F 92 20 126/67 96 12/01/17 07:19 12/01/17 07:19 12/01/17 07:19 12/01/17 07:19 12/01/17 07:19 General appearance: Present: cooperative, A&O X 3, morbidly obese, answers questions appropriately - Head Head exam: Present: atraumatic, normal inspection - Neck Neck exam general surgery: Present: supple - Respiratory Respiratory exam: Present: decreased breath sounds, wheezes. Absent: rales, respiratory distress, rhonchi - Cardiovascular Cardiovascular exam: Present: RRR, +S1, +S2. Absent: tachycardia - GI/Abdominal GI/Abdominal exam: Present: soft. Absent: rebound, rigid, tenderness - Extremities Exam Extremities exam: Present: tenderness. Absent: calf tenderness, pedal edema Additional comments: Rt leg dressing on with external fixator. No signs of infection - Back Exam Back exam: Absent: CVA tenderness (L), CVA tenderness (R) - Neurological Exam Neurological exam: Present: alert, oriented X3 - Psychiatric Psychiatric exam: Present: normal affect, normal mood - Patient Status Disposition: Transfer SNF Condition: Good Overall status at discharge: patient is back to baseline - Discharge Instructions Follow Up With: Dori Sutton DO [Primary Care Provider] - Marcelo Burnett DPM [Partnered Physician] - - Diet and Activity Activity: as per physical therapy, increase activity as tolerated, wear oxygen at all times Diet: low salt diet - VTE Documentation of Mechanical Device: Intermittent pneumatic compression device
--- NOTE | 2017-12-01 09:46 | Physician Discharge Referral ---
ExtendedCare Referral Info Transfer To: F Provider in Charge after Transfer: PCP Institutional Level of Care: Skilled - Diagnosis (1) Trimalleolar fracture of ankle, closed Status: Acute (2) Acute on chronic respiratory failure with hypoxia and hypercapnia Status: Acute (3) COPD (chronic obstructive pulmonary disease) Status: Chronic (4) Diabetes mellitus Status: Chronic (5) Hypertension Status: Chronic (6) Diastolic CHF Status: Chronic (7) HLD (hyperlipidemia) Status: Chronic - Transfer Medications Prescriptions: OxyCODONE Immed Rel [Roxicodone 10 MG] 10 mg PO Q6H PRN 5 Days #15 tab PRN Reason: Pain Home Medications: Acarbose [Precose] 50 mg PO TID 06/20/17 [History] Albuterol Neb [Proventil Neb] 1 vial IH TID 06/20/17 [History] Albuterol Sulfate [Ventolin Hfa] 2 puff IH Q6H PRN 06/20/17 [History] Aspirin [Lo-Dose Aspirin EC] 81 mg PO DAILY 06/20/17 [History] Atorvastatin [Lipitor] 40 mg PO HS 06/20/17 [History] BuPROPion XL (24 HR) [Wellbutrin Xl] 300 mg PO QAM 06/20/17 [History] Duloxetine HCl [Cymbalta] 60 mg PO QAM 06/20/17 [History] Ergocalciferol (VITAMIN D2) [Vitamin D2] 50,000 unit PO QWEEK 06/20/17 [History] Fluticasone Propionate Nasal [Flonase] 1 spr NS DAILY 06/20/17 [History] Gabapentin [Neurontin] 600 mg PO TID 06/20/17 [History] Lisinopril [Zestril] 10 mg PO DAILY 06/20/17 [History] Magnesium Oxide [Magnesium] 400 mg PO DAILY 06/20/17 [History] Omeprazole [PriLOSEC] 20 mg PO DAILY 06/20/17 [History] Vit #76/Iron,Carb/FA [Pnv 29-1 Tablet] 1 tab PO DAILY 06/20/17 [History ] Tiotropium [Spiriva] 18 mcg IH DAILY 06/20/17 [History] Trazodone HCl 100 mg PO HS 06/20/17 [History] hydrOXYzine pamoate [HydrOXYzine Pamoate] 25 mg PO TID PRN 06/20/17 [History] metFORMIN [Glucophage] 500 mg PO BID 06/20/17 [History] Cyanocobalamin (B-12) [Vitamin B12] 1,000 mcg PO DAILY #30 tablet 06/22/17 [Rx] Acetaminophen [Extra Strength Non-Aspirin] 1,000 mg PO Q6H PRN 11/22/17 [History ] Albuterol Sulfate [Ventolin Hfa] 2 puff IH Q6H PRN 11/22/17 [History] Insulin DETEMIR [Levemir] 26 unit SQ HS 11/22/17 [History] Insulin DETEMIR [Levemir] 28 unit SQ QAM 11/22/17 [History] Insulin Regular, Human [Novolin R] 0 - 12 unit SQ TID PRN 11/22/17 [History] Potassium Chloride [K-Tab ER] 40 meq PO QAM 11/22/17 [History] Furosemide [Lasix] 40 mg PO DAILY tablet 12/01/17 [Rx] OxyCODONE Immed Rel [Roxicodone 10 MG] 10 mg PO Q6H PRN 5 Days #15 tab 12/01/17 [Rx] Polyethylene Glycol 3350 [MiraLAX] 17 gm PO DAILY powd.pack 12/01/17 [Rx] Rivaroxaban [Xarelto] 10 mg PO 0600 #17 tablet 12/01/17 [Rx] Sennosides/Docusate Sodium [Senna Plus] 1 each PO BID PRN tablet 12/01/17 [Rx] cephALEXin [Keflex] 500 mg PO BID #14 capsule 12/01/17 [Rx] predniSONE [PredniSONE] 40 mg PO DAILY #10 tablet 12/01/17 [Rx] Allergies/Adverse Reactions: 3 Allergy/AdvReac Type Severity Reaction Status Date / Time No Known Drug Allergies Allergy none Verified 06/21/17 19:26 - Respiratory Orders Smoking Cessation: Smoking cessation has been advised. For more information, call the [place] Tobacco Quit Line at 0-148-LMEN-NOW. CERTIFICATION: I certify that the transfer of the above named patient to an Extended Care Facility is necessary for the continuing treatment of the diagnosis listed. The above information is true and accurate reflection of patient's current condition. Confidential - Redisclosure prohibited without a patient's written consent.
[2017-12-01 11:57] VITALS: BP 117/72
== END 2017-12-01 12:46 | DRG 492 ==
LOC: EMEROO 10:47 → 3NENU 10:47 → ICNU 11-23 22:23 → 3NENU 11-26 18:32
PROVIDERS: ADMIT Family Medicine; ATTEND Family Medicine

== ENCOUNTER 2017-12-09 13:03 | Inpatient (IN) ==
[2017-12-09] MEDS ORDERED: Naloxone 0.4 MG/ML INJ IVP PRN (16:33)
[2017-12-09] MEDS ORDERED: Dextrose Gel 15 GM/37.5 ML TUBE PO PRN ×2 (16:33)
[2017-12-09] MEDS ORDERED: Albuterol 2.5 MG/3 ML NEBULIZER IH PRN (16:33)
[2017-12-09] MEDS ORDERED: *HR* Dextrose 50 % in Water (Syg) 50 ML SYRINGE IVP PRN (16:33)
[2017-12-09] MEDS ORDERED: D5% in Water 1,000 ML IVC PRN (16:33)
[2017-12-09] MEDS: Insulin LISPRO 300 UNITS/3 ML VIAL SQ SCH (16:49)
[2017-12-09] MEDS ORDERED: Levofloxacin 500 MG/100 ML 500 MG/100 ML BAG IVPB SCH (17:00)
--- NOTE | 2017-12-09 17:05 | Internal Med History&Physical ---
Date of Encounter: 12/09/17 Time of Encounter: 15:25 Internal Medicine - H&P: HPI Chief complaint: AMS; SOB; cough Admitted From: Emergency Dept Plans for Post Hospital Care: Home History of present illness: Ms. Walsh is a 62 year old female who presents in transfer from [facility] for concerns of altered mental status, difficulty breathing, cough, and weakness. She was recently hospitalized here at [facility] and had surgery for leg fracture. She was in rehab since then at a local F in [place] where she was noted today to have some altered mental status, shortness of breath, and wheezing. She presented to [facility] ER where she was found to have some hypoglycemia, acute kidney failure, and confusional state. She was transferred here to [facility]. Upon my assessment of the patient, she is alert, oriented 3, coughing, wheezing , and mildly short of breath. She denies any hallucinations or delusions. She does state that she had some confusion earlier today but that she had low sugar at the ECF and the ER. She denies any fevers or chills. She does complain of incontinence of urine and some dysuria. She denies any abdominal pain. She denies any chest pain. She does have COPD and has been coughing and wheezing more than her usual baseline. She denies any hemoptysis. Past Med Surg Social Fam HX - Past Medical History Attestation: Yes The following information was validated with the patient. Source: patient, old records reviewed, other ([facility] transfer records) Medical history: CHF, COPD, diabetes, GERD, hyperlipidemia, hypertension Psychiatric history: anxiety, depression - Past Surgical History Surgical History: cholecystectomy, hip replacement, orthopedic, other (ORIF right ankle) Additional surgical history: 2 right and 1 left hip replcaement - Social History Smoking Status: Former smoker Smokeless Tobacco Status: No Alcohol use: occasionally Drug use: none Current living situation: [facility] Recent Out of Country Travel Within the Last 8 Weeks: No - Family History Father Family Member Ethnicity: Non- Living Status: Hx Family Cancer: Yes (Lung) Mother Family Member Ethnicity: Non- Living Status: Still Living Sister Family Member Ethnicity: Non- Living Status: Still Living Grandmother Family Member Ethnicity: Non- Living Status: Hx Family Endocrine Disorder: Yes (DM) Internal Medicine - H&P: Meds Acarbose [Precose] 50 mg PO TID 06/20/17 [History] Albuterol Neb [Proventil Neb] 1 vial IH TID 06/20/17 [History] Albuterol Sulfate [Ventolin Hfa] 2 puff IH Q6H PRN 06/20/17 [History] Aspirin [Lo-Dose Aspirin EC] 81 mg PO DAILY 06/20/17 [History] Atorvastatin [Lipitor] 40 mg PO HS 06/20/17 [History] BuPROPion XL (24 HR) [Wellbutrin Xl] 300 mg PO QAM 06/20/17 [History] Duloxetine HCl [Cymbalta] 60 mg PO QAM 06/20/17 [History] Ergocalciferol (VITAMIN D2) [Vitamin D2] 50,000 unit PO QWEEK 06/20/17 [History] Fluticasone Propionate Nasal [Flonase] 1 spr NS DAILY 06/20/17 [History] Gabapentin [Neurontin] 600 mg PO TID 06/20/17 [History] Lisinopril [Zestril] 10 mg PO DAILY 06/20/17 [History] Magnesium Oxide [Magnesium] 400 mg PO DAILY 06/20/17 [History] Omeprazole [PriLOSEC] 20 mg PO DAILY 06/20/17 [History] Vit #76/Iron,Carb/FA [Pnv 29-1 Tablet] 1 tab PO DAILY 06/20/17 [History ] Tiotropium [Spiriva] 18 mcg IH DAILY 06/20/17 [History] Trazodone HCl 100 mg PO HS 06/20/17 [History] hydrOXYzine pamoate [HydrOXYzine Pamoate] 25 mg PO TID PRN 06/20/17 [History] metFORMIN [Glucophage] 500 mg PO BID 06/20/17 [History] Cyanocobalamin (B-12) [Vitamin B12] 1,000 mcg PO DAILY #30 tablet 06/22/17 [Rx] Acetaminophen [Extra Strength Non-Aspirin] 1,000 mg PO Q6H PRN 11/22/17 [History ] Albuterol Sulfate [Ventolin Hfa] 2 puff IH Q6H PRN 11/22/17 [History] Insulin DETEMIR [Levemir] 26 unit SQ HS 11/22/17 [History] Insulin DETEMIR [Levemir] 28 unit SQ QAM 11/22/17 [History] Insulin Regular, Human [Novolin R] 0 - 12 unit SQ TID PRN 11/22/17 [History] Potassium Chloride [K-Tab ER] 40 meq PO QAM 11/22/17 [History] Furosemide [Lasix] 40 mg PO DAILY tablet 12/01/17 [Rx] OxyCODONE Immed Rel [Roxicodone 10 MG] 10 mg PO Q6H PRN 5 Days #15 tab 12/01/17 [Rx] Polyethylene Glycol 3350 [MiraLAX] 17 gm PO DAILY powd.pack 12/01/17 [Rx] Rivaroxaban [Xarelto] 10 mg PO 0600 #17 tablet 12/01/17 [Rx] Sennosides/Docusate Sodium [Senna Plus] 1 each PO BID PRN tablet 12/01/17 [Rx] cephALEXin [Keflex] 500 mg PO BID #14 capsule 12/01/17 [Rx] predniSONE [PredniSONE] 40 mg PO DAILY #10 tablet 12/01/17 [Rx] 3 Allergy/AdvReac Type Severity Reaction Status Date / Time No Known Drug Allergies Allergy none Verified 06/21/17 19:26 - Constitutional Constitutional: chills, no anorexia, no fever(s), no night sweats - EENT Eyes: no blurry vision, no change in vision Ears: no ear pain, no tinnitus Nose, mouth and throat: no sore throat - Cardiovascular Cardiovascular ROS IM: dyspnea, no chest pain, no orthopnea, no syncope - Respiratory Respiratory: cough, dyspnea, excessive phlegm production, no hemoptysis, no chest congestion, no change in phlegm color - Gastrointestinal Gastrointestinal: no abdominal pain, no diarrhea, no hematemesis, no hematochezia, no melena, no nausea, no vomiting - Genitourinary Genitourinary: dysuria, no flank pain, no hematuria - Musculoskeletal Musculoskeletal ROS IM: no back pain, no joint swelling - Integumentary Integumentary IM: no rash, no jaundice - Neurological Neurological ROS: no dizziness, no focal weakness, no frequent falls, no headache(s) - Psychiatric Psychiatric: confusion, no anxiety, no depression, no hallucinations - Endocrine Endocrine IM: no polydipsia, no polyuria - Allergic/Immunologic Allergic/Immunologic: wheezing, no lip swelling - Constitutional Vitals: Temp Pulse Resp BP Pulse Ox 98.4 F 88 18 107/69 96 12/09/17 16:00 12/09/17 16:00 12/09/17 16:00 12/09/17 16:00 12/09/17 16:00 General appearance: Present: cooperative, A&O X 3, pleasant, no acute distress, answers questions appropriately Exam: looks dry - Head Head exam: Present: normal inspection - Eye Eye exam: Present: EOMI, PERRL. Absent: scleral icterus Pupils: Present: normal accommodation - ENT ENT exam: Present: mucous membranes dry, normal exam, normal oropharynx - Neck Neck exam general surgery: Present: full ROM, supple. Absent: tenderness, nuchal rigidity, thyromegaly - Respiratory Respiratory exam: Present: prolonged expiratory phase, respiratory distress ( mild), rhonchi, wheezes. Absent: accessory muscle use, chest wall tenderness, rales - Cardiovascular Cardiovascular exam: Present: RRR, +S1, +S2. Absent: diastolic murmur, systolic murmur - GI/Abdominal GI/Abdominal exam: Present: normal bowel sounds, soft. Absent: hepatomegaly, mass, splenomegaly, tenderness - Extremities Exam Extremities exam: Present: normal capillary refill, warm, radial pulses palpable and symmetrical. Absent: calf tenderness, joint swelling, pedal edema Additional comments: right leg/ankle dressed with externalized hardware - Back Exam Back exam: Absent: CVA tenderness (L), CVA tenderness (R) - Neurological Exam Neurological exam: Present: alert, oriented X3, no focal deficits - Psychiatric Psychiatric exam: Present: normal affect, normal mood - Skin Skin exam: Present: dry, warm. Absent: rash Internal Med - H&P Results - Labs Labs: I reviewed her labs from [facility] and include the following: Urinalysis appears negative Tox screen is positive for oxycodone which is prescribed Sodium 132 Potassium 6.0 Chloride 94 Carbon dioxide 35 BUN 37 Glucose 32 Creatinine 2.43 WBC 5.7 Glucose 7.6 Hematocrit 24.7 Platelet 168 I do not see any imaging studies that were done - Assessment and plan (1) COPD exacerbation Current Visit: Yes Status: Acute Assessment and plan: 1. Will order CXR. 2. Continue oxygen. 3. Will place on steroids, scheduled and PRN aerosols, and start Levaquin given recent hospital stay. 4. Will follow clinically. (2) Encephalopathy acute Current Visit: Yes Status: Acute Assessment and plan: 1. Likely due to hypoglycemia. 2. Will minimize sedating medications and monitor clinically. 3. Will monitor glucose, hold oral diabetic meds, and monitor glucose while using SSI. (3) Hypoglycemia Current Visit: Yes Status: Acute Assessment and plan: 1. Monitor glucose, hold oral diabetic meds, and use SSI. 2. Likely culprit for encephalopathy. (4) Acute kidney failure Current Visit: Yes Status: Acute Assessment and plan: 1. Will hold diuretics and avoid nephrotoxins. 2. Will hydrate with IVF and monitor renal function. 3. Dr. Harris consulted. 4. Monitor electrolytes closely. 5. Will order renal ultrasound. Qualifiers: Acute renal failure type: unspecified Qualified Code(s): N17.9 - Acute kidney failure, unspecified (5) Anemia Current Visit: Yes Status: Chronic Assessment and plan: 1. Monitor hemoglobin and check FOBT. 2. Patient has been on Xarelto for DVT prophylaxis. 3. Will place on Heparin SQ for now and monitor H/H. She may need GI work-up if + FOBT. Qualifiers: Anemia type: unspecified type Qualified Code(s): D64.9 - Anemia, unspecified (6) DVT prophylaxis Current Visit: Yes Status: Acute Assessment and plan: 1. Heparin SQ.
[2017-12-09 17:43] LABS: Eosinophils # 0.1 K/mcL (0.0-0.6); Hematocrit 24.6 % (35.3-44.9); Hemoglobin 8.1 g/dL (11.5-15.4); Immature Granulocytes % 0.2 % (0-4); Lymphocytes # 0.5 K/mcL (0.6-4.6); Lymphocytes % 11.6 %; Mean Corpuscular HGB Conc 32.9 g/dL (31.6-35.5); Mean Corpuscular Hemoglobin 35.7 pg (28.0-33.3); Mean Corpuscular Volume 108.4 fL (83.0-100.0); Mean Platelet Volume 10.7 fL (9.4-12.4); Monocytes # 0.5 K/mcL (0.0-1.3); Monocytes % 10.5 %; Neutrophils # 3.4 K/mcL (1.6-8.9); Platelet Count 165 K/mcL (140-400); Red Blood Count 2.27 M/mcL (3.82-4.97); Red Cell Distribution Width 13.4 % (11.5-14.5); Segmented Neutrophils % 75.7 %
[2017-12-09 18:10] LABS: Albumin 3.2 g/dL (3.5-5.7); Albumin/Globulin Ratio 1.1 (1.1-2.2); Bilirubin,Total 0.7 mg/dL (0.3-1.0); Calcium 9.2 mg/dL (8.6-10.3); Potassium 5.6 mEq/L (3.5-5.1); Total Protein 6.2 g/dL (6.4-8.9)
[2017-12-09 18:24] LABS: Bilirubin,Urine Negative (Negative); Blood,Urine Small (Negative); Clarity,Urine Clear (Clear); Color,Urine Yellow (Yellow); Glucose,Urine (UA) Normal (Normal); Ketones,Urine Negative (Negative); Leukocyte Esterase,Urine Negative (Negative); Nitrite,Urine Negative (Negative); PH,Urine 7.5 pH Units (5.0-8.0); Protein,Urine Trace mg/dL (Neg-Trace); Urobilinogen,Urine Normal (Normal)
[2017-12-09 18:27] LABS: Bacteria,Urine None Seen per hpf (None-Few); Hyaline Casts,Urine None Seen per lpf (None-Few); Squamous Epithelial Cell,Urine Few per lpf (None-Few); WBC,Urine 0-3 per hpf (0-3)
[2017-12-09] MEDS: traMADol 50 MG TABLET PO PRN (18:56)
[2017-12-09 19:00] LABS: Estimated Average Glucose 117 mg/dl; Hemoglobin A1C 5.7 %
[2017-12-09] MEDS: Ipratropium/Albuterol Neb 3 ML IH SCH (21:54)
[2017-12-09] MEDS: methylPREDNISolone 125 MG/2 ML VIAL IVP SCH (23:46)
[2017-12-09] MEDS: *HR* Heparin 5,000 UNIT/ML VIAL SQ SCH (23:46)
[2017-12-10] MEDS: Ipratropium/Albuterol Neb 3 ML IH SCH ×3 (04:17→15:48)
[2017-12-10 07:21] LABS: Basophils % 0.3 %; Eosinophils % 1.1 %; Hematocrit 25.1 % (35.3-44.9); Hemoglobin 8.2 g/dL (11.5-15.4); Immature Granulocytes % 0.3 % (0-4); Lymphocytes # 0.6 K/mcL (0.6-4.6); Lymphocytes % 15.6 %; Mean Corpuscular HGB Conc 32.7 g/dL (31.6-35.5); Mean Corpuscular Volume 107.3 fL (83.0-100.0); Mean Platelet Volume 10.7 fL (9.4-12.4); Monocytes # 0.5 K/mcL (0.0-1.3); Monocytes % 13.9 %; Neutrophils # 2.5 K/mcL (1.6-8.9); Platelet Count 167 K/mcL (140-400); Red Blood Count 2.34 M/mcL (3.82-4.97); Segmented Neutrophils % 68.8 %
[2017-12-10 07:30] LABS: INR 1.2; Prothrombin Time 12.9 Seconds (9.4-12.1)
[2017-12-10 07:33] LABS: Activated Partial Thrombo Time 34.5 Seconds (26.0-36.0)
[2017-12-10 07:42] LABS: Alanine Aminotransferase 49 Units/L (7-52); Albumin 3.2 g/dL (3.5-5.7); Albumin/Globulin Ratio 1.1 (1.1-2.2); Alkaline Phosphatase 265 Units/L (34-104); Aspartate Amino Transferase 27 Units/L (13-39); BUN/Creatinine Ratio 22 (6-26); Bilirubin,Total 0.5 mg/dL (0.3-1.0); Blood Urea Nitrogen 24 mg/dL (8-23); Calcium 9.6 mg/dL (8.6-10.3); Carbon Dioxide 31 mEq/L (23-29); Chloride 99 mEq/L (98-107); Glucose 156 mg/dL (70-105); Osmolality,Calculated 291 (280-300); Potassium 4.7 mEq/L (3.5-5.1); Sodium 137 mEq/L (136-145); Total Protein 6.2 g/dL (6.4-8.9); eGFR For African Americans > 60 (> 60); eGFR For Non-African Americans 50 (> 60)
[2017-12-10] MEDS: Insulin LISPRO 300 UNITS/3 ML VIAL SQ SCH ×4 (08:21→21:55)
[2017-12-10] MEDS: traMADol 50 MG TABLET PO PRN (08:21)
[2017-12-10] MEDS: *HR* Heparin 5,000 UNIT/ML VIAL SQ SCH ×3 (08:21→23:47)
[2017-12-10] MEDS: methylPREDNISolone 125 MG/2 ML VIAL IVP SCH (08:22)
--- NOTE | 2017-12-10 08:29 | Nephrology Consult Note ---
Date of Encounter: 12/10/17 Time of Encounter: 08:26 Assessment and Plan (1) Acute kidney failure Current Visit: Yes Status: Acute Patient has a clinical picture of acute kidney injury possibly related to subclinical volume depletion. Her renal function is improved following the administration of IV fluids since admission. From a nephrology standpoint is nothing much else to do other than follow her renal function. Nephrology will sign off. Please call again if needed. Qualifiers: Acute renal failure type: unspecified Qualified Code(s): N17.9 - Acute kidney failure, unspecified History of Present Illness - History of Present Illness This is a 62-year-old female who was sent from the skilled nursing to the emergency room because of mental status changes and difficulty in breathing. Patient was recently hospitalized on November 26 after sustaining a right ankle fracture. She has surgical repair. During that time her serum creatinine was 0.96. Patient presented to the emergency room with an elevated creatinine of 1.69. Urinalysis was unremarkable. Blood pressure was a bit low at 92/45. Patient denies any issues with nausea, vomiting, diarrhea, or decreased oral intake. She denies any difficulties emptying her bladder. I believe she did receive some IV fluids. Urine output for yesterday was recorded as 1.7 L. There is no intake recorded in the medical record. Currently the patient says she feels fine. She denies any complaints. She has no previous history of renal disease. She does have a history of diabetes, hypertension, COPD, and sleep apnea which is untreated. When she was discharged from her previous hospitalization she was sent home on Keflex. Patient's creatinine is down to 1.11 today. Past Med Surg Social Fam HX - Past Medical History Medical history: CHF, COPD, diabetes, GERD, hyperlipidemia, hypertension Psychiatric history: anxiety, depression - Past Surgical History Surgical History: cholecystectomy, hip replacement, orthopedic, other (ORIF right ankle) Additional surgical history: 2 right and 1 left hip replcaement - Social History Smoking Status: Former smoker Smokeless Tobacco Status: No Alcohol use: occasionally Drug use: none - Family History Father Family Member Ethnicity: Non- Living Status: Hx Family Cancer: Yes (Lung) Mother Family Member Ethnicity: Non- Living Status: Still Living Sister Family Member Ethnicity: Non- Living Status: Still Living Grandmother Family Member Ethnicity: Non- Living Status: Hx Family Endocrine Disorder: Yes (DM) Medications and Allergies Acarbose [Precose] 50 mg PO TID 06/20/17 [History] Albuterol Neb [Proventil Neb] 1 vial IH TID 06/20/17 [History] Albuterol Sulfate [Ventolin Hfa] 2 puff IH Q6H PRN 06/20/17 [History] Aspirin [Lo-Dose Aspirin EC] 81 mg PO DAILY 06/20/17 [History] Atorvastatin [Lipitor] 40 mg PO HS 06/20/17 [History] BuPROPion XL (24 HR) [Wellbutrin Xl] 300 mg PO QAM 06/20/17 [History] Duloxetine HCl [Cymbalta] 60 mg PO QAM 06/20/17 [History] Ergocalciferol (VITAMIN D2) [Vitamin D2] 50,000 unit PO QWEEK 06/20/17 [History] Fluticasone Propionate Nasal [Flonase] 1 spr NS DAILY 06/20/17 [History] Gabapentin [Neurontin] 600 mg PO TID 06/20/17 [History] Lisinopril [Zestril] 10 mg PO DAILY 06/20/17 [History] Magnesium Oxide [Magnesium] 400 mg PO DAILY 06/20/17 [History] Omeprazole [PriLOSEC] 20 mg PO DAILY 06/20/17 [History] Vit #76/Iron,Carb/FA [Pnv 29-1 Tablet] 1 tab PO DAILY 06/20/17 [History ] Tiotropium [Spiriva] 18 mcg IH DAILY 06/20/17 [History] Trazodone HCl 100 mg PO HS 06/20/17 [History] hydrOXYzine pamoate [HydrOXYzine Pamoate] 25 mg PO TID PRN 06/20/17 [History] metFORMIN [Glucophage] 500 mg PO BID 06/20/17 [History] Cyanocobalamin (B-12) [Vitamin B12] 1,000 mcg PO DAILY #30 tablet 06/22/17 [Rx] Acetaminophen [Extra Strength Non-Aspirin] 1,000 mg PO Q6H PRN 11/22/17 [History ] Albuterol Sulfate [Ventolin Hfa] 2 puff IH Q6H PRN 11/22/17 [History] Insulin DETEMIR [Levemir] 26 unit SQ 11/22/17 [History] Insulin DETEMIR [Levemir] 28 unit SQ QAM 11/22/17 [History] Insulin Regular, Human [Novolin R] 0 - 12 unit SQ TID PRN 11/22/17 [History] Potassium Chloride [K-Tab ER] 40 meq PO QAM 11/22/17 [History] Furosemide [Lasix] 40 mg PO DAILY tablet 12/01/17 [Rx] OxyCODONE Immed Rel [Roxicodone 10 MG] 10 mg PO Q6H PRN 5 Days #15 tab 12/01/17 [Rx] Polyethylene Glycol 3350 [MiraLAX] 17 gm PO DAILY powd.pack 12/01/17 [Rx] Rivaroxaban [Xarelto] 10 mg PO 0600 #17 tablet 12/01/17 [Rx] Sennosides/Docusate Sodium [Senna Plus] 1 each PO BID PRN tablet 12/01/17 [Rx] cephALEXin [Keflex] 500 mg PO BID #14 capsule 12/01/17 [Rx] predniSONE [PredniSONE] 40 mg PO DAILY #10 tablet 12/01/17 [Rx] 3 Allergy/AdvReac Type Severity Reaction Status Date / Time No Known Drug Allergies Allergy none Verified 06/21/17 19:26 Review of Systems Constitutional: weakness Eyes: bilateral: blurred vision (patient denies), diplopia (patient denies) Nose, mouth and throat: no dizziness, no headache(s) Cardiovascular: as per HPI, dyspnea, dyspnea on exertion Respiratory: dyspnea, dyspnea on exertion Gastrointestinal: no abdominal pain, no change in bowel habits Genitourinary Female: as per HPI Musculoskeletal: no muscle weakness, no numbness Musculoskeletal: right: foot pain Integumentary: no hirsutism, no striae Neurological: as per HPI Psychiatric: no depression, no difficulty concentrating Endocrine: as per HPI Exam - Vital Signs Vital signs: Initial Vital Signs Temp Pulse Resp BP Pulse Ox 98.4 F 88 18 107/69 96 12/09/17 16:00 12/09/17 16:00 12/09/17 16:00 12/09/17 16:00 12/09/17 16:00 Vital Signs - Last 8 Hours Temp Pulse Resp BP Pulse Ox 12/10/17 07:34 98.3 F 101 18 160/71 93 Intake and Output 12/09/17 12/10/17 12/10/17 23:59 07:59 15:59 Output Total 1700 / 1700 1750 / 1750 Balance -1700 / -1700 -1750 / -1750 Output: Catheter 1700 / 1700 1750 / 1750 Other: Weight 234.4 kg 107.4 kg Blood Glucose* 269 176 Patient Weight 12/10/17 23:59 Weight 107.4 kg - General Appearance Exam: Patient is alert and oriented. She is in no acute distress. Lungs mange breath sounds otherwise clear. Heart regular rate and rhythm with a 2/6 soft ejection murmur. Abdomen shows normal bowel sounds bruits masses gamma- glutamyl tenderness. There is no lower extremity swelling. Results - Lab Results 12/10/17 06:41 12/10/17 06:41 Most recent lab results Calcium 9.6 mg/dL (8.6-10.3) 12/10/17 06:41 Magnesium 2.0 mg/dL (1.6-2.6) 12/10/17 06:41 Consult Discharge Plan - Plan Referrals: Dori Sutton DO [Primary Care Provider] -
[2017-12-10] MEDS: predniSONE 20 MG TABLET PO SCH (10:56)
--- NOTE | 2017-12-10 11:23 | Internal Med Progress Note ---
Date of Encounter: 12/10/17 Time of Encounter: 11:22 - Assessment and plan (1) COPD exacerbation Current Visit: Yes Status: Acute Assessment and plan: CXR without infiltrates Continue levaquin, duonebs, steroids, O2 (2) Encephalopathy acute Current Visit: Yes Status: Resolved Assessment and plan: Resolved Likel due to BRITTANY Patient is AAOX3 (3) Hypoglycemia Current Visit: Yes Status: Resolved Assessment and plan: Resolved Continue SSI (4) Acute kidney failure Current Visit: Yes Status: Acute Assessment and plan: Improved Presented with Cr of 2.4 Now 1.1 Renal eval noted Contiue to monitor renal function and avoid nephrotoxins Qualifiers: Acute renal failure type: unspecified Qualified Code(s): N17.9 - Acute kidney failure, unspecified (5) Anemia Current Visit: Yes Status: Chronic Assessment and plan: Hb stable at baseline Continue heparin Qualifiers: Anemia type: unspecified type Qualified Code(s): D64.9 - Anemia, unspecified (6) DVT prophylaxis Current Visit: Yes Status: Acute Assessment and plan: Heparin SQ. - Time Spent With Patient Total time spent is greater than 50% in coordination of care (as documented) at patient's floor/unit and/or counseling patient: - Subjective Interval history: Seen and examined at the bedside Being managed for COPDE, BRITTANY Renal function is improving She has no new complains Podiatry eval is pending - Constitutional Vitals: Temp Pulse Resp BP Pulse Ox 98.3 F 101 18 160/71 93 12/10/17 07:34 12/10/17 07:34 12/10/17 07:34 12/10/17 07:34 12/10/17 07:34 General appearance: Present: cooperative, A&O X 3, morbidly obese, pleasant, no acute distress, answers questions appropriately - Head Head exam: Present: atraumatic, normocephalic - Eye Eye exam: Present: PERRL, conjuntiva pink, sclera anicteric Pupils: Present: PERRL - Neck Neck exam general surgery: Present: supple, trachea midline. Absent: lymphadenopathy - Respiratory Respiratory exam: Present: CTAB. Absent: accessory muscle use, rales, rhonchi, wheezes - Cardiovascular Cardiovascular exam: Present: RRR, +S1, +S2. Absent: diastolic murmur, gallop, rubs, systolic murmur - GI/Abdominal GI/Abdominal exam: Present: normal bowel sounds, soft, no peritoneal signs. Absent: distended, tenderness - Extremities Exam Additional comments: R external fixation rods, neurovascularly intact - Neurological Exam Neurological exam: Present: alert, CN II-XII intact, oriented X3, no focal deficits. Absent: pronater drift, facial droop, speech deficit - Skin Skin exam: Present: dry, intact Internal Medicine: Result - Labs CBC & Chem 7: 12/10/17 06:41 12/10/17 06:41 Labs: Short CBC 12/09/17 12/10/17 Range/Units 17:14 06:41 WBC 4.6 3.6 L (4.3-11.1) K/mcL Hgb 8.1 L 8.2 L (11.5-15.4) g/dL Hct 24.6 L 25.1 L (35.3-44.9) % Plt Count 165 167 (140-400) K/mcL Neutrophils # 3.4 2.5 (1.6-8.9) K/mcL BMP 12/09/17 12/10/17 17:14 06:41 Sodium 133 L 137 Potassium 5.6 H 4.7 Chloride 92 L 99 Carbon Dioxide 34 H 31 H BUN 34 H 24 H Creatinine 1.69 H 1.11 Glucose 156 H 156 H Calcium 9.2 9.6 Liver Function 12/09/17 12/10/17 Range/Units 17:14 06:41 Total Bilirubin 0.7 0.5 (0.3-1.0) mg/dL AST 44 H 27 (13-39) Units/L ALT 60 H 49 (7-52) Units/L Alkaline Phosphatase 292 H 265 H (34-104) Units/L Albumin 3.2 L 3.2 L (3.5-5.7) g/dL Urine 12/09/17 Range/Units 17:28 Urine Color Yellow (Yellow) Urine Clarity Clear (Clear) Urine pH 7.5 (5.0-8.0) pH Units Ur Specific [place] 1.010 (1.010-1.025) Urine Protein Trace (Neg-Trace) mg/dL Urine Glucose (UA) Normal (Normal) mg/dL - ABG Interpretation ABG results: PT/INR, D-dimer PT 12.9 Seconds (9.4-12.1) H 12/10/17 06:41 Consult Discharge Plan - Plan Referrals: Dori Sutton DO [Primary Care Provider] -
[2017-12-10] MEDS: Gabapentin 300 MG CAPSULE PO SCH ×2 (13:58→19:51)
[2017-12-10] MEDS: *HR* OxyCODONE Immed Rel 5 MG TABLET PO PRN ×2 (13:58→19:51)
[2017-12-10] MEDS: levoFLOXacin 500 MG TABLET PO SCH (16:04)
--- NOTE | 2017-12-10 16:23 | Electrocardiograph Report ---
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
--- NOTE | 2017-12-10 17:17 | Podiatry Consult Note ---
Date of Encounter: 12/10/17 Time of Encounter: 17:00 Assessment and Plan (1) Trimalleolar fracture of ankle, closed Current visit: No Status: Acute s/p ORIF with external fixation Dressing removed at bedside with No clinical signs of trauma or infection Pin sites cleansed and triple antibiotic ointment applied and xeroform applied around pin sites Dry roll gauze applied Cast padding Posterior splint applied BENIGNO wrap applied for protection No appearance of infection Continue to elevate NWB at all times to surgical foot Will follow up in clinic 1 week after discharge or as already scheduled Will obtain xray to r/o injury or movement of hardware as patient reports a fall Dressing may stay intact unless soiled while inpatient. Call with any concerns. Qualifiers: Encounter type: initial encounter Laterality: right Qualified Code(s): S82.851A - Displaced trimalleolar fracture of right lower leg, initial encounter for closed fracture History of Present Illness HPI: 62-year-old diabetic female a subacute trimalleolar ankle fracture/dislocation of the right lower extremity which she sustained in September 2017. On 11/23/2017 patient underwent a ORIF of right ankle fracture ORIF of syndesmosis Application of delta external fixator right lower extremity Patient was discharged 12/01/2017 Seen in podiatry clinic per on 12/06/17 without any clinical signs of infection She presented to [facility] upon transfer from [facility] for concerns of altered mental status, difficulty breathing, cough, and weakness. She was in rehab since then at a local [facility] in [place]. She presented to [facility] ER where she was found to have hypoglycemia, acute kidney failure, and confusional state. She was transferred here to [place]. We have been consulted regarding post op care and to assess surgical site for any possible signs of infection Per Patient reports she states she fell over oxygen tubing since we seen her on saturday, states she fell on her foot. Patient repeated multiple times that she fell in the last couple days over her oxygen. States she fell at home. Asked patient if she was allowed to go home from [facility] and she states no, asked her where she fell and again she said home. Patient again oriented to where she is and when she was last seen and that she is currently in the ECF and states she did not fall there and has not been allowed to go home, states she thought we were asking about a when her injury initially happened although questioning was very clear. Unsure if there was any injury to foot or hardware since last seen. WBC 3.6 Past Med Surg Social Fam HX - Past Medical History Medical history: CHF, COPD, diabetes, GERD, hyperlipidemia, hypertension Psychiatric history: anxiety, depression - Past Surgical History Surgical History: cholecystectomy, hip replacement, orthopedic, other (ORIF right ankle) Additional surgical history: 2 right and 1 left hip replcaement - Social History Smoking Status: Former smoker Smokeless Tobacco Status: No Alcohol use: occasionally Drug use: none - Family History Father Family Member Ethnicity: Non- Living Status: Hx Family Cancer: Yes (Lung) Mother Family Member Ethnicity: Non- Living Status: Still Living Sister Family Member Ethnicity: Non- Living Status: Still Living Grandmother Family Member Ethnicity: Non- Living Status: Hx Family Endocrine Disorder: Yes (DM) Medications and Allergies Acarbose [Precose] 50 mg PO TID 06/20/17 [History] Albuterol Neb [Proventil Neb] 1 vial IH Q6H 06/20/17 [History] Atorvastatin [Lipitor] 40 mg PO HS 06/20/17 [History] BuPROPion XL (24 HR) [Wellbutrin Xl] 300 mg PO QAM 06/20/17 [History] Duloxetine HCl [Cymbalta] 60 mg PO QAM 06/20/17 [History] Ergocalciferol (VITAMIN D2) [Vitamin D2] 50,000 unit PO WE 06/20/17 [History] Fluticasone Propionate Nasal [Flonase] 1 spr NS DAILY 06/20/17 [History] Lisinopril [Zestril] 10 mg PO DAILY 06/20/17 [History] Omeprazole [PriLOSEC] 20 mg PO DAILY 06/20/17 [History] Vit #76/Iron,Carb/FA [Pnv 29-1 Tablet] 1 tab PO DAILY 06/20/17 [History ] Tiotropium [Spiriva] 18 mcg IH DAILY 06/20/17 [History] Trazodone HCl 100 mg PO HS 06/20/17 [History] Acetaminophen [Extra Strength Non-Aspirin] 1,000 mg PO Q6H PRN 11/22/17 [History ] Albuterol Sulfate [Ventolin Hfa] 2 puff IH Q6H PRN 11/22/17 [History] Insulin DETEMIR [Levemir] 26 unit SQ HS 11/22/17 [History] Insulin DETEMIR [Levemir] 28 unit SQ QAM 11/22/17 [History] Insulin Regular, Human [Novolin R] 0 - 12 unit SQ TID PRN 11/22/17 [History] Potassium Chloride [K-Tab ER] 40 meq PO QAM 11/22/17 [History] OxyCODONE Immed Rel [Roxicodone 10 MG] 10 mg PO Q6H PRN 5 Days #15 tab 12/01/17 [Rx] Polyethylene Glycol 3350 [MiraLAX] 17 gm PO DAILY powd.pack 12/01/17 [Rx] Fluticasone/Vilanterol [Breo Ellipta 100-25 Mcg INH] 1 puff IH DAILY 12/10/17 [ History] Furosemide [Lasix] 60 mg PO DAILY 12/10/17 [History] Sennosides/Docusate Sodium [Senna Plus] 1 each PO Q12H PRN 12/10/17 [History] 3 Allergy/AdvReac Type Severity Reaction Status Date / Time No Known Drug Allergies Allergy none Verified 12/10/17 11:54 All Systems Reviewed: The remainder of the systems were reviewed and are negative Review of systems: awake and alert on arrival, oriented to person and place however is a poor historian. Patient denies any acute distress. - Constitutional Constitutional: headache(s) - Cardiovascular Cardiovascular: other (States she was wheezing and short of breath the day she came in but is fine now) - Respiratory Respiratory: as per HPI - Musculoskeletal Musculoskeletal: other (patient reports possible fall, unclear, denies any pain to surgical site, denies any fevers, chills, n/v or flu like symptoms. Denies any calf pain or sob) Physical Exam - Constitutional Vitals: Temp Pulse Resp BP Pulse Ox 97.7 F 91 20 152/77 93 12/10/17 15:47 12/10/17 15:47 12/10/17 15:47 12/10/17 15:47 12/10/17 15:47 Exam: Podiatry General Exam: General appearance: alert awake oriented at times. No acute distress, Poor historian Vascular: Pedal pulses +2/4 DP/PT , No evidence of cyanosis, pallor or rubor, Edema graded at 1+/4, Skin Temperature warm, No calf pain with manual compression. capillary refill time is immediate to digits. Neurologic: Minimal sensation to light or moderate touch. Postop Exam: S/P ORIF with external fixation Surgical lines well approximated, no signs of dehiscence, no erythema, no edema , no warmth. Pin sites are clean and clear of any signs of infection. no drainage noted. No odor. Foot appears in proper alignment, pins do not appear moved from initial position. Mely intact to lateral incision line. Results - Labs Result Diagrams: 12/10/17 06:41 12/10/17 06:41 Labs: Abnormal lab results WBC 3.6 K/mcL (4.3-11.1) L 12/10/17 06:41 RBC 2.34 M/mcL (3.82-4.97) L 12/10/17 06:41 Hgb 8.2 g/dL (11.5-15.4) L 12/10/17 06:41 Hct 25.1 % (35.3-44.9) L 12/10/17 06:41 MCV 107.3 fL (83.0-100.0) H 12/10/17 06:41 MCH 35.0 pg (28.0-33.3) H 12/10/17 06:41 PT 12.9 Seconds (9.4-12.1) H 12/10/17 06:41 Carbon Dioxide 31 mEq/L (23-29) H 12/10/17 06:41 BUN 24 mg/dL (8-23) H 12/10/17 06:41 Est GFR (Non-Af Amer) 50 (> 60) L 12/10/17 06:41 Glucose 156 mg/dL (70-105) H 12/10/17 06:41 POC Glucose 269 mg/dL (70-99) H 12/09/17 19:50 Hemoglobin A1c 5.7 % (-5.6) H 12/09/17 16:39 Alkaline Phosphatase 265 Units/L (34-104) H 12/10/17 06:41 Serum Total Protein 6.2 g/dL (6.4-8.9) L 12/10/17 06:41 Albumin 3.2 g/dL (3.5-5.7) L 12/10/17 06:41 Urine Blood Small (Negative) H 12/09/17 17:28 Urine Microscopic RBC 5-15 per hpf (0-3) H 12/09/17 17:28 Stool Occult Blood Positive (Negative) A 12/10/17 13:25 H & H 12/09/17 12/09/17 12/09/17 Range/Units 16:39 17:14 17:14 WBC 4.6 (4.3-11.1) K/mcL RBC 2.27 L (3.82-4.97) M/mcL Hgb 8.1 L (11.5-15.4) g/dL Hct 24.6 L (35.3-44.9) % MCV 108.4 H (83.0-100.0) fL MCH 35.7 H (28.0-33.3) pg MCHC 32.9 (31.6-35.5) g/dL RDW 13.4 (11.5-14.5) % Plt Count 165 (140-400) K/mcL MPV 10.7 (9.4-12.4) fL Immature Gran % 0.2 (0-4) % Seg Neutrophils % 75.7 % Lymphocytes % 11.6 % Monocytes % 10.5 % Eosinophils % 2.0 % Basophils % 0.0 % Neutrophils # 3.4 (1.6-8.9) K/mcL Lymphocytes # 0.5 L (0.6-4.6) K/mcL Monocytes # 0.5 (0.0-1.3) K/mcL Eosinophils # 0.1 (0.0-0.6) K/mcL Basophils # 0.0 (0.0-0.2) K/mcL PT (9.4-12.1) Seconds INR APTT (26.0-36.0) Seconds Sodium 133 L (136-145) mEq/L Potassium 5.6 H (3.5-5.1) mEq/L Chloride 92 L (98-107) mEq/L Carbon Dioxide 34 H (23-29) mEq/L BUN 34 H (8-23) mg/dL Creatinine 1.69 H (0.60-1.20) mg/dL Est GFR ( Amer) 37 L (> 60) Est GFR (Non-Af Amer) 31 L (> 60) BUN/Creatinine Ratio 20 (6-26) Glucose 156 H (70-105) mg/dL POC Glucose (70-99) mg/dL Est Mean Plasma Glucose 117 mg/dl Hemoglobin A1c 5.7 H ( - 5.6) % Calculated Osmolality 287 (280-300) Calcium 9.2 (8.6-10.3) mg/dL Magnesium (1.6-2.6) mg/dL Total Bilirubin 0.7 (0.3-1.0) mg/dL AST 44 H (13-39) Units/L ALT 60 H (7-52) Units/L Alkaline Phosphatase 292 H (34-104) Units/L Serum Total Protein 6.2 L (6.4-8.9) g/dL Albumin 3.2 L (3.5-5.7) g/dL Globulin 3.0 (2.4-3.5) g/dL Albumin/Globulin Ratio 1.1 (1.1-2.2) Urine Color (Yellow) Urine Clarity (Clear) Urine pH (5.0-8.0) pH Units Ur Specific [place] (1.010-1.025) Urine Protein (Neg-Trace) mg/dL Urine Glucose (UA) (Normal) mg/dL Urine Ketones (Negative) mg/dL Urine Blood (Negative) Urine Nitrite (Negative) Urine Bilirubin (Negative) Urine Urobilinogen (Normal) mg/dL Ur Leukocyte Esterase (Negative) Urine Microscopic RBC (0-3) per hpf Urine Microscopic WBC (0-3) per hpf Ur Squamous Epith Cells (None-Few) per lpf Urine Bacteria (None-Few) per hpf Hyaline Casts (None-Few) per lpf Ur Culture Indicated? (NO) Stool Occult Blood (Negative) 12/09/17 12/09/17 12/09/17 Range/Units 17:28 18:00 19:50 WBC (4.3-11.1) K/mcL RBC (3.82-4.97) M/mcL Hgb (11.5-15.4) g/dL Hct (35.3-44.9) % MCV (83.0-100.0) fL MCH (28.0-33.3) pg MCHC (31.6-35.5) g/dL RDW (11.5-14.5) % Plt Count (140-400) K/mcL MPV (9.4-12.4) fL Immature Gran % (0-4) % Seg Neutrophils % % Lymphocytes % % Monocytes % % Eosinophils % % Basophils % % Neutrophils # (1.6-8.9) K/mcL Lymphocytes # (0.6-4.6) K/mcL Monocytes # (0.0-1.3) K/mcL Eosinophils # (0.0-0.6) K/mcL Basophils # (0.0-0.2) K/mcL PT (9.4-12.1) Seconds INR APTT (26.0-36.0) Seconds Sodium (136-145) mEq/L Potassium (3.5-5.1) mEq/L Chloride (98-107) mEq/L Carbon Dioxide (23-29) mEq/L BUN (8-23) mg/dL Creatinine (0.60-1.20) mg/dL Est GFR ( Amer) (> 60) Est GFR (Non-Af Amer) (> 60) BUN/Creatinine Ratio (6-26) Glucose (70-105) mg/dL POC Glucose 261 H 269 H (70-99) mg/dL Est Mean Plasma Glucose mg/dl Hemoglobin A1c ( - 5.6) % Calculated Osmolality (280-300) Calcium (8.6-10.3) mg/dL Magnesium (1.6-2.6) mg/dL Total Bilirubin (0.3-1.0) mg/dL AST (13-39) Units/L ALT (7-52) Units/L Alkaline Phosphatase (34-104) Units/L Serum Total Protein (6.4-8.9) g/dL Albumin (3.5-5.7) g/dL Globulin (2.4-3.5) g/dL Albumin/Globulin Ratio (1.1-2.2) Urine Color Yellow (Yellow) Urine Clarity Clear (Clear) Urine pH 7.5 (5.0-8.0) pH Units Ur Specific [place] 1.010 (1.010-1.025) Urine Protein Trace (Neg-Trace) mg/dL Urine Glucose (UA) Normal (Normal) mg/dL Urine Ketones Negative (Negative) mg/dL Urine Blood Small H (Negative) Urine Nitrite Negative (Negative) Urine Bilirubin Negative (Negative) Urine Urobilinogen Normal (Normal) mg/dL Ur Leukocyte Esterase Negative (Negative) Urine Microscopic RBC 5-15 H (0-3) per hpf Urine Microscopic WBC 0-3 (0-3) per hpf Ur Squamous Epith Cells Few (None-Few) per lpf Urine Bacteria None Seen (None-Few) per hpf Hyaline Casts None Seen (None-Few) per lpf Ur Culture Indicated? NO (NO) Stool Occult Blood (Negative) 12/10/17 12/10/17 12/10/17 Range/Units 06:41 06:41 06:41 WBC 3.6 L (4.3-11.1) K/mcL RBC 2.34 L (3.82-4.97) M/mcL Hgb 8.2 L (11.5-15.4) g/dL Hct 25.1 L (35.3-44.9) % MCV 107.3 H (83.0-100.0) fL MCH 35.0 H (28.0-33.3) pg MCHC 32.7 (31.6-35.5) g/dL RDW 13.0 (11.5-14.5) % Plt Count 167 (140-400) K/mcL MPV 10.7 (9.4-12.4) fL Immature Gran % 0.3 (0-4) % Seg Neutrophils % 68.8 % Lymphocytes % 15.6 % Monocytes % 13.9 % Eosinophils % 1.1 % Basophils % 0.3 % Neutrophils # 2.5 (1.6-8.9) K/mcL Lymphocytes # 0.6 (0.6-4.6) K/mcL Monocytes # 0.5 (0.0-1.3) K/mcL Eosinophils # 0.0 (0.0-0.6) K/mcL Basophils # 0.0 (0.0-0.2) K/mcL PT 12.9 H (9.4-12.1) Seconds INR 1.2 APTT 34.5 (26.0-36.0) Seconds Sodium 137 (136-145) mEq/L Potassium 4.7 (3.5-5.1) mEq/L Chloride 99 (98-107) mEq/L Carbon Dioxide 31 H (23-29) mEq/L BUN 24 H (8-23) mg/dL Creatinine 1.11 (0.60-1.20) mg/dL Est GFR ( Amer) > 60 (> 60) Est GFR (Non-Af Amer) 50 L (> 60) BUN/Creatinine Ratio 22 (6-26) Glucose 156 H (70-105) mg/dL POC Glucose (70-99) mg/dL Est Mean Plasma Glucose mg/dl Hemoglobin A1c ( - 5.6) % Calculated Osmolality 291 (280-300) Calcium 9.6 (8.6-10.3) mg/dL Magnesium 2.0 (1.6-2.6) mg/dL Total Bilirubin 0.5 (0.3-1.0) mg/dL AST 27 (13-39) Units/L ALT 49 (7-52) Units/L Alkaline Phosphatase 265 H (34-104) Units/L Serum Total Protein 6.2 L (6.4-8.9) g/dL Albumin 3.2 L (3.5-5.7) g/dL Globulin 3.0 (2.4-3.5) g/dL Albumin/Globulin Ratio 1.1 (1.1-2.2) Urine Color (Yellow) Urine Clarity (Clear) Urine pH (5.0-8.0) pH Units Ur Specific [place] (1.010-1.025) Urine Protein (Neg-Trace) mg/dL Urine Glucose (UA) (Normal) mg/dL Urine Ketones (Negative) mg/dL Urine Blood (Negative) Urine Nitrite (Negative) Urine Bilirubin (Negative) Urine Urobilinogen (Normal) mg/dL Ur Leukocyte Esterase (Negative) Urine Microscopic RBC (0-3) per hpf Urine Microscopic WBC (0-3) per hpf Ur Squamous Epith Cells (None-Few) per lpf Urine Bacteria (None-Few) per hpf Hyaline Casts (None-Few) per lpf Ur Culture Indicated? (NO) Stool Occult Blood (Negative) 12/10/17 Range/Units 13:25 WBC (4.3-11.1) K/mcL RBC (3.82-4.97) M/mcL Hgb (11.5-15.4) g/dL Hct (35.3-44.9) % MCV (83.0-100.0) fL MCH (28.0-33.3) pg MCHC (31.6-35.5) g/dL RDW (11.5-14.5) % Plt Count (140-400) K/mcL MPV (9.4-12.4) fL Immature Gran % (0-4) % Seg Neutrophils % % Lymphocytes % % Monocytes % % Eosinophils % % Basophils % % Neutrophils # (1.6-8.9) K/mcL Lymphocytes # (0.6-4.6) K/mcL Monocytes # (0.0-1.3) K/mcL Eosinophils # (0.0-0.6) K/mcL Basophils # (0.0-0.2) K/mcL PT (9.4-12.1) Seconds INR APTT (26.0-36.0) Seconds Sodium (136-145) mEq/L Potassium (3.5-5.1) mEq/L Chloride (98-107) mEq/L Carbon Dioxide (23-29) mEq/L BUN (8-23) mg/dL Creatinine (0.60-1.20) mg/dL Est GFR ( Amer) (> 60) Est GFR (Non-Af Amer) (> 60) BUN/Creatinine Ratio (6-26) Glucose (70-105) mg/dL POC Glucose (70-99) mg/dL Est Mean Plasma Glucose mg/dl Hemoglobin A1c ( - 5.6) % Calculated Osmolality (280-300) Calcium (8.6-10.3) mg/dL Magnesium (1.6-2.6) mg/dL Total Bilirubin (0.3-1.0) mg/dL AST (13-39) Units/L ALT (7-52) Units/L Alkaline Phosphatase (34-104) Units/L Serum Total Protein (6.4-8.9) g/dL Albumin (3.5-5.7) g/dL Globulin (2.4-3.5) g/dL Albumin/Globulin Ratio (1.1-2.2) Urine Color (Yellow) Urine Clarity (Clear) Urine pH (5.0-8.0) pH Units Ur Specific [place] (1.010-1.025) Urine Protein (Neg-Trace) mg/dL Urine Glucose (UA) (Normal) mg/dL Urine Ketones (Negative) mg/dL Urine Blood (Negative) Urine Nitrite (Negative) Urine Bilirubin (Negative) Urine Urobilinogen (Normal) mg/dL Ur Leukocyte Esterase (Negative) Urine Microscopic RBC (0-3) per hpf Urine Microscopic WBC (0-3) per hpf Ur Squamous Epith Cells (None-Few) per lpf Urine Bacteria (None-Few) per hpf Hyaline Casts (None-Few) per lpf Ur Culture Indicated? (NO) Stool Occult Blood Positive A (Negative) All other labs normal. Consult Discharge Plan - Plan Referrals: Dori Sutton, [Primary Care Provider] -
[2017-12-10] MEDS ORDERED: Ipratropium/Albuterol Neb 3 ML IH PRN (18:37)
[2017-12-10] MEDS: Insulin DETEMIR 100 UNIT/ML X5UNITS SQ SCH (21:54)
[2017-12-11] MEDS: *HR* OxyCODONE Immed Rel 5 MG TABLET PO PRN ×3 (03:24→20:42)
[2017-12-11 04:25] LABS: Basophils % 0.3 %; Eosinophils % 0.3 %; Hematocrit 25.1 % (35.3-44.9); Hemoglobin 8.1 g/dL (11.5-15.4); Immature Granulocytes % 0.3 % (0-4); Lymphocytes # 0.7 K/mcL (0.6-4.6); Lymphocytes % 20.8 %; Mean Corpuscular HGB Conc 32.3 g/dL (31.6-35.5); Mean Corpuscular Hemoglobin 33.8 pg (28.0-33.3); Mean Corpuscular Volume 104.6 fL (83.0-100.0); Mean Platelet Volume 10.2 fL (9.4-12.4); Monocytes # 0.4 K/mcL (0.0-1.3); Monocytes % 12.5 %; Neutrophils # 2.1 K/mcL (1.6-8.9); Platelet Count 186 K/mcL (140-400); Red Cell Distribution Width 12.8 % (11.5-14.5); Segmented Neutrophils % 65.8 %
[2017-12-11 04:28] LABS: BUN/Creatinine Ratio 19 (6-26); Blood Urea Nitrogen 18 mg/dL (8-23); Calcium 9.4 mg/dL (8.6-10.3); Carbon Dioxide 33 mEq/L (23-29); Chloride 100 mEq/L (98-107); Glucose 124 mg/dL (70-105); Osmolality,Calculated 293 (280-300); Potassium 4.2 mEq/L (3.5-5.1); Sodium 140 mEq/L (136-145); eGFR For African Americans > 60 (> 60); eGFR For Non-African Americans 59 (> 60)
[2017-12-11] MEDS: *HR* Heparin 5,000 UNIT/ML VIAL SQ SCH ×3 (05:59→23:08)
[2017-12-11] MEDS: Insulin LISPRO 300 UNITS/3 ML VIAL SQ SCH ×4 (08:02→20:43)
[2017-12-11] MEDS: traMADol 50 MG TABLET PO PRN ×2 (10:15→19:46)
[2017-12-11] MEDS: BuPROPion XL (24 HR) 150 MG TABLET PO SCH (10:15)
[2017-12-11] MEDS: Gabapentin 300 MG CAPSULE PO SCH ×3 (10:15→19:46)
[2017-12-11] MEDS: predniSONE 20 MG TABLET PO SCH (10:15)
[2017-12-11] MEDS: Insulin DETEMIR 100 UNIT/ML X5UNITS SQ SCH ×2 (10:41→20:42)
--- NOTE | 2017-12-11 12:46 | Internal Med Progress Note ---
Date of Encounter: 12/11/17 Time of Encounter: 14:15 - Assessment and plan (1) COPD exacerbation Current Visit: Yes Status: Acute Assessment and plan: CXR without infiltrates Continue levaquin, duonebs, steroids, O2 (2) Encephalopathy acute Current Visit: Yes Status: Resolved Assessment and plan: Resolved Likel due to BRITTANY Patient is AAOX3 (3) Hypoglycemia Current Visit: Yes Status: Resolved Assessment and plan: Resolved Continue SSI (4) Acute kidney failure Current Visit: Yes Status: Acute Assessment and plan: Improved Presented with Cr of 2.4 Renal eval noted Contiue to monitor renal function and avoid nephrotoxins Qualifiers: Acute renal failure type: unspecified Qualified Code(s): N17.9 - Acute kidney failure, unspecified (5) Anemia Current Visit: Yes Status: Chronic Assessment and plan: Hb stable at baseline Continue heparin Qualifiers: Anemia type: unspecified type Qualified Code(s): D64.9 - Anemia, unspecified (6) DVT prophylaxis Current Visit: Yes Status: Acute Assessment and plan: Heparin SQ. - Time Spent With Patient Total time spent is greater than 50% in coordination of care (as documented) at patient's floor/unit and/or counseling patient: - Subjective Interval history: Seen and examined at the bedside Being managed for COPDE, BRITTANY Renal function is improving She has no new complains Podiatry eval is noted For possible discharge a.m, if clinical improvement is sustained FOBT is positive but patient's HB is at baseline, will recommend out-patient EGD/Colonoscopy - Constitutional Vitals: Temp Pulse Resp BP Pulse Ox 97.7 F 98 21 116/72 96 12/11/17 11:12 12/11/17 11:12 12/11/17 11:12 12/11/17 11:12 12/11/17 11:12 General appearance: Present: cooperative, A&O X 3, morbidly obese, pleasant, no acute distress, answers questions appropriately - Head Head exam: Present: atraumatic, normocephalic - Eye Eye exam: Present: PERRL, conjuntiva pink, sclera anicteric Pupils: Present: PERRL - Neck Neck exam general surgery: Present: supple, trachea midline. Absent: lymphadenopathy - Respiratory Respiratory exam: Present: CTAB. Absent: accessory muscle use, rales, rhonchi, wheezes - Cardiovascular Cardiovascular exam: Present: RRR, +S1, +S2. Absent: diastolic murmur, gallop, rubs, systolic murmur - GI/Abdominal GI/Abdominal exam: Present: normal bowel sounds, soft, no peritoneal signs. Absent: distended, tenderness - Extremities Exam Additional comments: R external fixators pins - Neurological Exam Neurological exam: Present: alert, CN II-XII intact, oriented X3, no focal deficits. Absent: pronater drift, facial droop, speech deficit - Skin Skin exam: Present: dry, intact Internal Medicine: Result - Labs CBC & Chem 7: 12/11/17 03:50 12/11/17 03:50 Labs: Short CBC 12/11/17 Range/Units 03:50 WBC 3.1 L (4.3-11.1) K/mcL Hgb 8.1 L (11.5-15.4) g/dL Hct 25.1 L (35.3-44.9) % Plt Count 186 (140-400) K/mcL Neutrophils # 2.1 (1.6-8.9) K/mcL BMP 12/11/17 03:50 Sodium 140 Potassium 4.2 Chloride 100 Carbon Dioxide 33 H BUN 18 Creatinine 0.96 Glucose 124 H Calcium 9.4 - ABG Interpretation ABG results: PT/INR, D-dimer PT 12.9 Seconds (9.4-12.1) H 12/10/17 06:41 - Impressions Impressions Foot X-Ray 12/10/17 17:25 IMPRESSION: 1. Status post ORIF of the medial and lateral malleoli with no evidence for hardware complication or failure. 2. Severe narrowing of the lateral ankle mortise with bone on bone articulation. 3. There is widening of the tibiotalar joint along its anterior aspect with posterior subluxation of the talus as best visualized on the lateral view. 4. Likely chronic deformity of the proximal 5th phalanx. Osteopenia limits evaluation for nondisplaced fractures. No definite acute fracture of the foot identified. 5. Osteopenia. D/ / Nestor Davis MD / Nestor Davis MD Interpreting Provider: Nestor Davis MD Ankle X-Ray 12/10/17 17:37 IMPRESSION: 1. Status post ORIF of the medial and lateral malleoli with no evidence for hardware complication or failure. 2. Severe narrowing of the lateral ankle mortise with bone on bone articulation. 3. There is widening of the tibiotalar joint along its anterior aspect with posterior subluxation of the talus as best visualized on the lateral view. 4. Likely chronic deformity of the proximal 5th phalanx. Osteopenia limits evaluation for nondisplaced fractures. No definite acute fracture of the foot identified. 5. Osteopenia. D/ / Nestor Davis MD / Nestor Davis MD Interpreting Provider: Nestor Davis MD Consult Discharge Plan - Plan Referrals: Dori Sutton DO [Primary Care Provider] - 12/25/17 10:15 am (Please follow up as schedule...)
[2017-12-11] MEDS: levoFLOXacin 500 MG TABLET PO SCH (16:42)
[2017-12-12] MEDS: *HR* OxyCODONE Immed Rel 5 MG TABLET PO PRN ×2 (02:32→09:30)
[2017-12-12] MEDS: traMADol 50 MG TABLET PO PRN ×2 (05:35→15:31)
[2017-12-12] MEDS: Insulin LISPRO 300 UNITS/3 ML VIAL SQ SCH ×2 (08:05→13:07)
[2017-12-12] MEDS: Gabapentin 300 MG CAPSULE PO SCH ×2 (09:31→15:35)
[2017-12-12] MEDS: Insulin DETEMIR 100 UNIT/ML X5UNITS SQ SCH (09:31)
[2017-12-12] MEDS: predniSONE 20 MG TABLET PO SCH (09:31)
[2017-12-12] MEDS: BuPROPion XL (24 HR) 150 MG TABLET PO SCH (09:31)
[2017-12-12] MEDS: *HR* Heparin 5,000 UNIT/ML VIAL SQ SCH (09:31)
--- NOTE | 2017-12-12 10:54 | Discharge Summary ---
- NOTES TO OUTPATIENT PROVIDER Notes to Outpatient Provider: Admitted and managed for acute metabolic encephalopathy due to hypoglycemia and BRITTANY. Both resolved. Incidental finding of COPD exacerbation in-patient. Continue prednisone for 2 more days and levaquin for 3 more days to complete therapy for COPDE. Lasix was held while inpatient but resumed upon discharge since renal function is back to baseline, monitor Chem 7 routinely per SNF protocol. Date of Encounter: 12/12/17 Time of Encounter: 10:50 - Discharge Diagnosis (1) COPD exacerbation Priority: Primary Status: Acute (2) Encephalopathy acute Priority: Primary Status: Resolved (3) Hypoglycemia Priority: Primary Status: Resolved (4) Acute kidney failure Priority: Primary Status: Resolved Qualifiers: Acute renal failure type: unspecified Qualified Code(s): N17.9 - Acute kidney failure, unspecified (5) Anemia Priority: Secondary Status: Chronic Qualifiers: Anemia type: unspecified type Qualified Code(s): D64.9 - Anemia, unspecified (6) DVT prophylaxis Priority: Secondary Status: Acute Hospital course: Ms. Walsh is a 62 year old female with PMH of HTN, COPD, ACD, HTN, DM, HLD, Depression She was admitted from outside facility for management of acute metabolic encephalopathy associated with hypoglycemia, BRITTANY, and COPD exacerbation BRITTANY was pre-renal with resolution after IVF hydration Encephaolpathy resolved upon presentation as patient's hypoglycemia had also resolved She has no infiltrates on CXR and was managed for COPDE with Steroids, duonebs and levaquin She may resume her usual anticoagulation at the SNF-xarelto per chart Hb has been stable but FOBT is positive, recommend endoscopy as outpatient, patient is hemodynamically stable Discharged to SNF with steroids and levaquin in stable condition Continue dressing and care of Right leg as directed by podiatry Discharge discussed with: patient, nurse, social work - Time Spent with Patient Total time spent providing and/or coordinating discharge services: Greater than 30 minutes - Discharge Medications Prescriptions: OxyCODONE Immed Rel [Roxicodone 10 MG] 10 mg PO Q6H PRN 5 Days #15 tab PRN Reason: Pain Home Medications: Acarbose [Precose] 50 mg PO TID 06/20/17 [History] Albuterol Neb [Proventil Neb] 1 vial IH Q6H 06/20/17 [History] Atorvastatin [Lipitor] 40 mg PO HS 06/20/17 [History] BuPROPion XL (24 HR) [Wellbutrin Xl] 300 mg PO QAM 06/20/17 [History] Duloxetine HCl [Cymbalta] 60 mg PO QAM 06/20/17 [History] Ergocalciferol (VITAMIN D2) [Vitamin D2] 50,000 unit PO WE 06/20/17 [History] Fluticasone Propionate Nasal [Flonase] 1 spr NS DAILY 06/20/17 [History] Lisinopril [Zestril] 10 mg PO DAILY 06/20/17 [History] Omeprazole [PriLOSEC] 20 mg PO DAILY 06/20/17 [History] Vit #76/Iron,Carb/FA [Pnv 29-1 Tablet] 1 tab PO DAILY 06/20/17 [History ] Tiotropium [Spiriva] 18 mcg IH DAILY 06/20/17 [History] Trazodone HCl 100 mg PO HS 06/20/17 [History] Acetaminophen [Extra Strength Non-Aspirin] 1,000 mg PO Q6H PRN 11/22/17 [History ] Albuterol Sulfate [Ventolin Hfa] 2 puff IH Q6H PRN 11/22/17 [History] Insulin DETEMIR [Levemir] 26 unit SQ HS 11/22/17 [History] Insulin DETEMIR [Levemir] 28 unit SQ QAM 11/22/17 [History] Insulin Regular, Human [Novolin R] 0 - 12 unit SQ TID PRN 11/22/17 [History] Potassium Chloride [K-Tab ER] 40 meq PO QAM 11/22/17 [History] Polyethylene Glycol 3350 [MiraLAX] 17 gm PO DAILY powd.pack 12/01/17 [Rx] Fluticasone/Vilanterol [Breo Ellipta 100-25 Mcg INH] 1 puff IH DAILY 12/10/17 [ History] Furosemide [Lasix] 60 mg PO DAILY 12/10/17 [History] Sennosides/Docusate Sodium [Senna Plus] 1 each PO Q12H PRN 12/10/17 [History] OxyCODONE Immed Rel [Roxicodone 10 MG] 10 mg PO Q6H PRN 5 Days #15 tab 12/12/17 [Rx] levoFLOXacin [Levaquin] 500 mg PO Q24H tablet 12/12/17 [Rx] predniSONE [PredniSONE] 40 mg PO DAILY tablet 12/12/17 [Rx] Allergies/Adverse Reactions: 3 Allergy/AdvReac Type Severity Reaction Status Date / Time No Known Drug Allergies Allergy none Verified 12/10/17 11:54 Date of admission: 12/09/17 17:49 Primary care physician: Dori Sutton DO Consults: 12/09/17 16:39 Consult to Physician [CONS] Routine Consulting Provider: Saurav Harris Reason for Consult: acute kidney failure Time Notified: 16:39 Call Completed: Yes 12/09/17 17:46 Consult to Podiatry [CONS] Routine Consulting Provider: [facility] Reason for Consult: post-op wound check Time Notified: 17:47 Call Completed: Yes 12/09/17 19:03 Consult to Invasive Line Access Team [CONS] Routine Reason for Consult: limited access Line Type: EPIV 12/10/17 10:39 Consult to Chief Gauger [CONS] Routine Reason for SW Consult: rtn to [place] Discharging clinician: Fritz García Anticipated date of discharge: 12/12/17 - Constitutional Vitals: Temp Pulse Resp BP Pulse Ox 97.7 F 84 18 145/76 98 12/12/17 07:07 12/12/17 07:07 12/12/17 07:07 12/12/17 07:07 12/12/17 07:07 General appearance: Present: cooperative, A&O X 3, morbidly obese, pleasant, no acute distress, answers questions appropriately - Head Head exam: Present: atraumatic, normocephalic - Eye Eye exam: Present: PERRL, conjuntiva pink, sclera anicteric Pupils: Present: PERRL - Neck Neck exam general surgery: Present: supple, trachea midline. Absent: lymphadenopathy - Respiratory Respiratory exam: Present: CTAB. Absent: accessory muscle use, rales, rhonchi, wheezes - Cardiovascular Cardiovascular exam: Present: RRR, +S1, +S2. Absent: diastolic murmur, gallop, rubs, systolic murmur - GI/Abdominal GI/Abdominal exam: Present: normal bowel sounds, soft, no peritoneal signs. Absent: distended, tenderness - Extremities Exam Extremities exam: Present: warm, radial pulses palpable and symmetrical. Absent : calf tenderness, cyanotic, pedal edema Additional comments: R external fixators pins - Neurological Exam Neurological exam: Present: alert, CN II-XII intact, oriented X3, no focal deficits. Absent: pronater drift, facial droop, speech deficit - Skin Skin exam: Present: dry, intact - Patient Status Disposition: Transfer SNF Condition: Good Functional capacity at discharge: bed bound Overall status at discharge: patient is progressing back to baseline - Discharge Instructions Follow Up With: Dori Sutton DO [Primary Care Provider] - 12/25/17 10:15 am (Please follow up as schedule...) - Diet and Activity Activity: resume usual activities as tolerated Diet: diabetic diet, low fat, low cholesterol, low salt diet
--- NOTE | 2017-12-12 12:50 | Physician Discharge Referral ---
ExtendedCare Referral Info Transfer To: [facility] Provider in Charge: Kelley García Provider in Charge after Transfer: PCP Institutional Level of Care: Skilled - Diagnosis (1) COPD exacerbation Priority: Primary Status: Acute (2) Encephalopathy acute Priority: Primary Status: Resolved (3) Hypoglycemia Priority: Primary Status: Resolved (4) Acute kidney failure Priority: Primary Status: Resolved (5) Anemia Priority: Secondary Status: Chronic (6) DVT prophylaxis Priority: Primary Status: Acute Prognosis: Fair Aware of Diagnosis: Patient Aware of Prognosis: Patient - Transfer Medications Prescriptions: OxyCODONE Immed Rel [Roxicodone 10 MG] 10 mg PO Q6H PRN 5 Days #15 tab PRN Reason: Pain Home Medications: Acarbose [Precose] 50 mg PO TID 06/20/17 [History] Albuterol Neb [Proventil Neb] 1 vial IH Q6H 06/20/17 [History] Atorvastatin [Lipitor] 40 mg PO HS 06/20/17 [History] BuPROPion XL (24 HR) [Wellbutrin Xl] 300 mg PO QAM 06/20/17 [History] Duloxetine HCl [Cymbalta] 60 mg PO QAM 06/20/17 [History] Ergocalciferol (VITAMIN D2) [Vitamin D2] 50,000 unit PO WE 06/20/17 [History] Fluticasone Propionate Nasal [Flonase] 1 spr NS DAILY 06/20/17 [History] Lisinopril [Zestril] 10 mg PO DAILY 06/20/17 [History] Omeprazole [PriLOSEC] 20 mg PO DAILY 06/20/17 [History] Vit #76/Iron,Carb/FA [Pnv 29-1 Tablet] 1 tab PO DAILY 06/20/17 [History ] Tiotropium [Spiriva] 18 mcg IH DAILY 06/20/17 [History] Trazodone HCl 100 mg PO HS 06/20/17 [History] Acetaminophen [Extra Strength Non-Aspirin] 1,000 mg PO Q6H PRN 11/22/17 [History ] Albuterol Sulfate [Ventolin Hfa] 2 puff IH Q6H PRN 11/22/17 [History] Insulin DETEMIR [Levemir] 26 unit SQ HS 11/22/17 [History] Insulin DETEMIR [Levemir] 28 unit SQ QAM 11/22/17 [History] Insulin Regular, Human [Novolin R] 0 - 12 unit SQ TID PRN 11/22/17 [History] Potassium Chloride [K-Tab ER] 40 meq PO QAM 11/22/17 [History] Polyethylene Glycol 3350 [MiraLAX] 17 gm PO DAILY powd.pack 12/01/17 [Rx] Fluticasone/Vilanterol [Breo Ellipta 100-25 Mcg INH] 1 puff IH DAILY 12/10/17 [ History] Furosemide [Lasix] 60 mg PO DAILY 12/10/17 [History] Sennosides/Docusate Sodium [Senna Plus] 1 each PO Q12H PRN 12/10/17 [History] OxyCODONE Immed Rel [Roxicodone 10 MG] 10 mg PO Q6H PRN 5 Days #15 tab 12/12/17 [Rx] levoFLOXacin [Levaquin] 500 mg PO Q24H tablet 12/12/17 [Rx] predniSONE [PredniSONE] 40 mg PO DAILY tablet 12/12/17 [Rx] Allergies/Adverse Reactions: 3 Allergy/AdvReac Type Severity Reaction Status Date / Time No Known Drug Allergies Allergy none Verified 12/10/17 11:54 - Respiratory Orders Oxygen / L per min Smoking Cessation: Smoking cessation has been advised. For more information, call the [place] Tobacco Quit Line at 2-805-AMJB-NOW. - Advance Directives Code Status: Full Code - Mobility Orders Bedrest - Rehabiliation Orders Rehab Orders: Evaluation for Physical Therapy - Diet Orders No Concentrated Sweets, Cardiac CERTIFICATION: I certify that the transfer of the above named patient to an Extended Care Facility is necessary for the continuing treatment of the diagnosis listed. The above information is true and accurate reflection of patient's current condition. Confidential - Redisclosure prohibited without a patient's written consent.
[2017-12-12 15:33] VITALS: BP 91/55
== END 2017-12-12 15:50 | DRG 190 ==
LOC: 2ANU → SUATTDRO 17:49
PROVIDERS: ADMIT Hospitalist; ATTEND Internal Medicine